=== PATIENT | female | born 1960 | race Two or more races ===

== ENCOUNTER 2020-09-06 09:12 | Outpatient (REF) | payer OTHER, SELFPAY ==
[2020-09-06 10:07] LABS: MANUAL DIFF FLAG NO
[2020-09-06 10:15] LABS: Basophils Absolute Auto 0.1 X10*3/uL (0.0-0.2); Basophils Percent Auto 1.1 % (0-2); Eosinophils Absolute Auto 0.1 X10*3/uL (0.0-0.4); Eosinophils Percent Auto 1.3 % (0-4); Hematocrit 43.2 % (37-47); Hemoglobin 14.1 g/dl (12.0-16.0); Imm Gran Abs Auto 0.01 X10*3/uL (0.00-0.03); Imm Gran Pct Auto 0.2 % (0.0-0.4); Lymphocytes Percent Auto 31.6 % (20-40); Mean Corpuscular HGB Conc 32.6 g/dl (31.0-35.0); Mean Corpuscular Hemoglobin 29.3 pg (27.0-33.0); Mean Corpuscular Volume 89.6 fL (80-98); Mean Platelet Volume 8.8 fL (9.4-12.3); Monocytes Absolute Auto 0.4 X10*3/uL (0.1-1.2); Monocytes Percent Auto 5.8 % (2-11); Neutrophils Absolute Auto 3.7 X10*3/uL (2.0-8.3); Platelet Count 325 X10*3/uL (160-400); Red Blood Count 4.82 X10*6/uL (4.20-5.50); Red Cell Distribution Width 13.2 % (11.0-16.0); White Blood Count 6.2 X10*3/uL (4.8-10.8)
[2020-09-06 10:21] LABS: Estimated Average Glucose 120 mg/dL; Hemoglobin A1C 145.3548 umol/L; Hemoglobin A1c % 5.8 %
[2020-09-06 10:57] LABS: Alanine Aminotransferase 18 U/L (0-31); Albumin Level 4.3 g/dL (3.5-5.0); Alkaline Phosphatase 65 U/L (39-117); Anion Gap 12 (12-20); Aspartate Amino Transferase 18 U/L (5-31); Bilirubin Total 0.3 mg/dL (0.0-1.0); Blood Urea Nitrogen 14 mg/dL (9-16); Calcium 8.7 mg/dL (8.4-10.2); Carbon Dioxide 30 mmol/L (22-29); Chloride 102 mmol/L (96-108); Cholesterol 332 mg/dL; Estimated Glomerular Filt Rate > 60; Glucose Fasting 82 mg/dL (60-99); HDL Cholesterol 51 mg/dL; LDL Cholesterol Calculated 222 mg/dl; Potassium 4.4 mmol/l (3.3-5.1); Sodium 140 mmol/L (135-145); Total Protein 7.5 g/dL (6.5-8.0); Triglycerides 298 mg/dL
[2020-09-06 11:03] LABS: TSH reflex Free T4 1.28 mIU/mL (0.32-4.0)
[2020-09-06 17:10] LABS: Rheumatoid Factor < 15.0 IU/mL (<15.0)
== END 2020-09-06 09:13 | disposition home or self-care (01) ==
LOC: HO.LAB 09:12
PROVIDERS: PCP Physician Assistant; Visit Provider Physician Assistant
DX: E66.09 Other obesity due to excess calories (principal); Z68.31 Body mass index [BMI] 31.0-31.9, adult; E78.2 Mixed hyperlipidemia; Z13.1 Encounter for screening for diabetes mellitus; M25.50 Pain in unspecified joint; E03.9 Hypothyroidism, unspecified
CPT/HCPCS: 36415; 80053; 80061; 83036; 84443; 85025; 86431

== ENCOUNTER 2021-11-09 10:08 | Outpatient (REF) | payer OTHER, SELFPAY ==
[2021-11-09 11:28] LABS: Estimated Average Glucose 126 mg/dL
[2021-11-09 11:34] LABS: Alanine Aminotransferase 16 U/L (0-31); Albumin Level 4.3 g/dL (3.5-5.0); Alkaline Phosphatase 86 U/L (39-117); Anion Gap 12 (12-20); Aspartate Amino Transferase 16 U/L (5-31); Bilirubin Total 0.4 mg/dL (0.0-1.0); Blood Urea Nitrogen 13 mg/dL (9-16); Calcium 9.8 mg/dL (8.4-10.2); Carbon Dioxide 30 mmol/L (22-29); Chloride 105 mmol/L (96-108); Cholesterol 243 mg/dL; Estimated Glomerular Filt Rate > 60; Glucose Fasting 105 mg/dL (60-99); HDL Cholesterol 48 mg/dL; LDL Cholesterol Calculated 146 mg/dl; Potassium 4.1 mmol/L (3.3-5.1); Rheumatoid Factor < 15.0 IU/mL (<15.0); Sodium 143 mmol/L (135-145); Total Protein 7.6 g/dL (6.5-8.0); Triglycerides 247 mg/dL
[2021-11-09 11:57] LABS: TSH reflex Free T4 1.33 uIU/mL (0.32-4.0)
[2021-11-09 12:24] LABS: Erythrocyte Sedimentation Rate 6 MM/HR (0-20)
[2021-11-10 12:41] LABS: Anti Nuclear Antibody Screen NEGATIVE (NEGATIVE)
[2021-11-11 15:42] LABS: Cyclic Citrullinated Peptide <16 UNITS
== END 2021-11-09 10:09 | disposition home or self-care (01) ==
LOC: HO.LAB 10:08
PROVIDERS: Visit Provider Physician Assistant
DX: M25.50 Pain in unspecified joint (principal); E03.9 Hypothyroidism, unspecified; E78.2 Mixed hyperlipidemia; M79.10 Myalgia, unspecified site; Z13.1 Encounter for screening for diabetes mellitus
CPT/HCPCS: 36415; 80053; 80061; 82550; 83036; 84443; 85652; 86038; 86039; 86200; 86431

== ENCOUNTER 2021-11-25 09:13 | Outpatient (REF) | payer OTHER, SELFPAY ==
--- NOTE | ~2021-11-25 | XR_ITS ---
EXAMINATION: XR BILATERAL SHOULDER XR CERVICAL SPINE CLINICAL INFORMATION: Pain in bilateral shoulder and neck. COMPARISON: None TECHNIQUE: 4 views each shoulder. Cervical spine 3 views. FINDINGS: Left Shoulder: There is no visible acute fracture, dislocation. The glenohumeral alignment and the AC joint appears normal. The soft tissues are normal. Right Shoulder: The glenohumeral joint space and AC joint is space is normal. No visible acute fracture, dislocation or lytic process seen. The soft tissues are normal. Cervical Spine: There is normal cervical lordosis. The vertebral heights, alignment and disc heights are normal. No visible acute fracture, dislocation or subluxation seen. There are surgical alberto in the lower neck from previous intervention. No gross bony abnormality. The prevertebral soft tissues are maintained normal. XR/XR shoulder RT min 2V IMPRESSION: Unremarkable bilateral shoulder exam. No fracture, dislocation or subluxation cervical spine. Surgical alberto in the lower anterior neck from previous intervention.
--- NOTE | ~2021-11-25 | XR_ITS ---
EXAMINATION: XR BILATERAL SHOULDER XR CERVICAL SPINE CLINICAL INFORMATION: Pain in bilateral shoulder and neck. COMPARISON: None TECHNIQUE: 4 views each shoulder. Cervical spine 3 views. FINDINGS: Left Shoulder: There is no visible acute fracture, dislocation. The glenohumeral alignment and the AC joint appears normal. The soft tissues are normal. Right Shoulder: The glenohumeral joint space and AC joint is space is normal. No visible acute fracture, dislocation or lytic process seen. The soft tissues are normal. Cervical Spine: There is normal cervical lordosis. The vertebral heights, alignment and disc heights are normal. No visible acute fracture, dislocation or subluxation seen. There are surgical alberto in the lower neck from previous intervention. No gross bony abnormality. The prevertebral soft tissues are maintained normal. XR/XR cervical spine 3V IMPRESSION: Unremarkable bilateral shoulder exam. No fracture, dislocation or subluxation cervical spine. Surgical alberto in the lower anterior neck from previous intervention.
--- NOTE | ~2021-11-25 | XR_ITS ---
EXAMINATION: XR BILATERAL SHOULDER XR CERVICAL SPINE CLINICAL INFORMATION: Pain in bilateral shoulder and neck. COMPARISON: None TECHNIQUE: 4 views each shoulder. Cervical spine 3 views. FINDINGS: Left Shoulder: There is no visible acute fracture, dislocation. The glenohumeral alignment and the AC joint appears normal. The soft tissues are normal. Right Shoulder: The glenohumeral joint space and AC joint is space is normal. No visible acute fracture, dislocation or lytic process seen. The soft tissues are normal. Cervical Spine: There is normal cervical lordosis. The vertebral heights, alignment and disc heights are normal. No visible acute fracture, dislocation or subluxation seen. There are surgical alberto in the lower neck from previous intervention. No gross bony abnormality. The prevertebral soft tissues are maintained normal. XR/XR shoulder LT min 2V IMPRESSION: Unremarkable bilateral shoulder exam. No fracture, dislocation or subluxation cervical spine. Surgical alberto in the lower anterior neck from previous intervention.
== END 2021-11-25 09:14 | disposition home or self-care (01) ==
LOC: HO.XRAY 09:13
PROVIDERS: PCP Physician Assistant; Visit Provider Physician Assistant
DX: G89.29 Other chronic pain (principal); M25.512 Pain in left shoulder; M25.511 Pain in right shoulder; M54.2 Cervicalgia; M77.8 Other enthesopathies, not elsewhere classified
CPT/HCPCS: 72040; 73030

== ENCOUNTER 2022-01-10 10:00 | Outpatient (RCR) | payer OTHER, SELFPAY ==
--- NOTE | 2022-01-01 12:25 | MHC.PT.EP ---
[facility] [place] [facility] [place] [facility] [place] [facility] [address] Brigette Pulliam [address] [phone] F: [phone] F: [phone] F: [phone] F: [phone] Physical Therapy Plan of Care Date of Evaluation: Date of Surgery: N/A Diagnosis: M75.21: bicipital tendinitis, right shoulder Assessment: pt presents w/ signs and symptoms consistent w/ distal biceps tendinitis. pt may benefit from referral to orthopedic doctor to determine if she is a candidate for other pain management options including injections. pt presents to physical therapy with pain, decreased range of motion, decreased strength, impaired functional mobility, impaired postural awareness, and gait deviations. pt is a good candidate for skilled PT due to age, potential remediation of impairments, typical disease/condition progression and prognosis, comorbidities, and motivation. pt would benefit from tailored strengthening and stretching exercise program, functional training, gait training, postural re-training, neuromuscular re-education, modalities as needed for pain, equipment safety demonstration. Frequency and Duration: The patient will be seen 2x/wk for 6 wks Short Term Goals: pt will be I w/ HEP to promote self-management of condition. pt will improve shoulder flexion AROM by 10 degrees to promote ease in reaching for objects in higher cabinets for self-care activities. Snf Goals: pt will report a statistically significant improvement in self-reported outcome measure, SPADI, to promote return to PLOF. pt will tolerate carrying 5# object in affected arm x20' to promote return to carrying groceries. Treatment Plan: Modalities to reduce pain, spasms and effusion. Manual therapy to restore motion and function. Therapeutic exercise to improve strength and flexibility. Neuromuscular re-education for posture and balance. Therapeutic activities to return to functional activities of daily living. Electronically signed by: Kaitlynn Castellanos PT, DPT Please sign and return to therapist. Thank you for your referral.
--- NOTE | 2022-01-22 15:35 | MHC.PT.DC ---
[facility] [place] [facility] [place] [facility] [place] [facility] [address] Brigette Pulliam [address] [phone] F: [phone] F: [phone] F: [phone] F: [phone] Physical Therapy Discharge Report Diagnosis: M75.21: bicipital tendinitis, right shoulder Date of Surgery: N/A Date of Evaluation: 01/01/22 Date of Discharge: 01/22/22 Treatments to Date: 3 Cancellations to Date: 0 No Shows to Date: 0 Discharge Status: Patient Elected to Stop Discharge Summary: The patient stated she does not want to continue with PT at this time because she feels she is in too much pain. Gentle AAROM and shoulder/elbow stretches were performed with poor tolerance and high self-reported pain intensities. She stated she has her first appointment with the orthopedic on February 04. The patient stated she wants to hold PT at this time until she sees the orthopedic. She is hoping to get an MRI. She is discharged from this physical therapy plan of care per her request until she sees orthopedic to determine if further PT intervention should be trialed or other pain management options. Electronically signed by: Kaitlynn Castellanos PT, DPT Please sign and return to therapist. Thank you for your referral.
== END 2022-01-22 15:35 | disposition home or self-care (01) ==
LOC: HO.PT 10:00
PROVIDERS: Visit Provider Physician Assistant
DX: M75.21 Bicipital tendinitis, right shoulder (principal)
CPT/HCPCS: 97110; 97162

== ENCOUNTER 2022-01-29 10:19 | Outpatient (REF) | payer OTHER, SELFPAY ==
--- NOTE | ~2022-01-29 | MR_ITS ---
EXAMINATION: MR SHOULDER WITHOUT CONTRAST, RIGHT CLINICAL INFORMATION: Right shoulder pain. COMPARISON: Radiographs 11/25/2021. TECHNIQUE: MRI of the shoulder without contrast was performed on a high-field scanner. FINDINGS: ROTATOR CUFF: There is a supraspinatus tendon insertional tear measuring approximately 8 x 6 mm which is predominantly interstitial although appears to communicate with the bursal surface. The rotator cuff is otherwise intact. No muscle atrophy or fatty infiltration. BICEPS: Normal. CORACOACROMIAL ARCH: The undersurface of the acromion is laterally downsloping with no subacromial spur. The acromioclavicular joint is normal. LABRUM/CAPSULE: Normal. GLENOHUMERAL JOINT/MARROW: Small degenerative cyst of the anterior superior humeral head. No joint effusion. MR/MR shoulder RT wo con IMPRESSION: Supraspinatus tendon insertional tear measuring approximately 8 x 6 mm which is predominantly interstitial although likely has a bursal surface component. Laterally downsloping acromion.
== END 2022-01-29 10:20 | disposition home or self-care (01) ==
LOC: HO.MRI 10:19
PROVIDERS: Visit Provider Physician Assistant
DX: M77.8 Other enthesopathies, not elsewhere classified (principal); M75.100 Unspecified rotator cuff tear or rupture of unspecified shoulder, not specified as traumatic; M12.819 Other specific arthropathies, not elsewhere classified, unspecified shoulder
CPT/HCPCS: 73221

== ENCOUNTER → 2022-02-04 09:44 | Outpatient (BNVA) | payer OTHER, SELFPAY | PROVIDERS: PCP Physician Assistant; Visit Provider Physician Assistant | DX: M75.101 Unspecified rotator cuff tear or rupture of right shoulder, not specified as traumatic (principal) | CPT/HCPCS: 99202 ==

== ENCOUNTER → 2022-02-06 09:48 | Outpatient (BNVA) | payer OTHER, SELFPAY | PROVIDERS: PCP Physician Assistant; Visit Provider Orthopaedic Surgery | DX: M75.101 Unspecified rotator cuff tear or rupture of right shoulder, not specified as traumatic (principal); I10 Essential (primary) hypertension; E89.0 Postprocedural hypothyroidism; F17.210 Nicotine dependence, cigarettes, uncomplicated; Z88.6 Allergy status to analgesic agent; Z88.1 Allergy status to other antibiotic agents; Z88.0 Allergy status to penicillin | CPT/HCPCS: 20610; 99212; J1040; J1100 ==

== ENCOUNTER 2022-03-14 11:29 | Emergency (ER) | payer MEDICAID, SELFPAY ==
--- NOTE | ~2022-03-14 | CT_ITS ---
EXAMINATION: CT ABDOMEN AND PELVIS WITHOUT CONTRAST CLINICAL INFORMATION: Diarrhea. Left-sided abdominal pain. COMPARISON: None TECHNIQUE: Multidetector volumetric imaging was performed from the superior aspect of the liver through the pubic symphysis. Sagittal and coronal reformatted images were obtained on the technologist's workstation. This CT examination was performed using dose optimization techniques as appropriate, variously including the following: *Automated exposure control *Adjustment of mA and/or kV according to patient size (this includes techniques or standardized protocols for targeted exams where dose is matched to indication/reason for exam; i.e. extremities or head) *Use of iterative reconstruction technique DLP: 686 mGy-cm FINDINGS: LUNG BASES: The visualized lung bases are unremarkable. LIVER, GALLBLADDER, AND BILIARY TREE: The liver is normal in size, shape, and attenuation. No focal hepatic lesion or biliary ductal dilatation is present. The gallbladder is unremarkable with no evidence of radiopaque gallstones, gallbladder wall thickening, or obvious pericholecystic inflammatory changes. PANCREAS: Unremarkable. SPLEEN: Unremarkable. ADRENAL GLANDS: Unremarkable. KIDNEYS AND URETERS: There are small calcifications in the upper pole of the right kidney, question representing vascular calcifications as opposed to stones. BLADDER: Unremarkable. GASTROINTESTINAL TRACT: There is colitis involving the cecum, right colon and hepatic flexure with bowel wall thickening and edema and stranding of the surrounding fat. There is a relatively normal-appearing transverse colon. There is evidence of mild colitis with bowel wall thickening of the left colon. There is more severe appearing colitis of the distal left colon and sigmoid colon with wall thickening and stranding of the surrounding fat. No evidence of obstruction, perforation or abscess is seen. There are areas of fatty infiltration of the wall of the bowel, predominantly involving the right colon and lower sigmoid colon and rectum. This is a nonspecific finding but can be seen with old colitis. The appendix is slightly dilated measuring 9 mm. There is a stranding of the periappendiceal fat. This appears less pronounced than the inflammatory changes of the cecum and right colon and may be secondary to the colitis. ABDOMINAL WALL: There are extensive postsurgical changes to the abdominal wall. No hernia seen. LYMPH NODES: Normal. VASCULAR: Unremarkable. PELVIC VISCERA: There may be a small left ovarian cyst measuring 1.6 cm. This appears increased from July 2012 exam and follow-up pelvic ultrasound should be considered. The uterus and adnexa are otherwise unremarkable. OSSEOUS STRUCTURES: There is degenerative disc disease and L4-L5. CT/CT abdomen pelvis wo con IMPRESSION: Severe colitis with intervening normal or less involved segments of colon. Inflammatory colitis should be excluded. The appendix is slightly dilated and there is stranding of the periappendiceal fat. This may be secondary to colitis. Question 1.6 cm left ovarian cyst. Follow-up elective pelvic ultrasound recommended. Small right renal calcifications, question representing vascular calcifications as opposed to small stones. Fleischner guidelines were followed.
[2022-03-14 11:42] VITALS: BP 122/71; PULSE 100; RESP 19; TEMP 36.6; O2SAT 98; BMI 36.9
[2022-03-14 11:59] LABS: MANUAL DIFF FLAG NO
[2022-03-14 12:04] LABS: Basophils Absolute Auto 0.1 X10*3/uL (0.0-0.2); Basophils Percent Auto 0.6 % (0-2); Eosinophils Absolute Auto 0.1 X10*3/uL (0.0-0.4); Eosinophils Percent Auto 1.3 % (0-4); Hematocrit 42.3 % (37.0-47.0); Hemoglobin 14.4 g/dl (12.0-16.0); Imm Gran Abs Auto 0.03 X10*3/uL (0.00-0.03); Imm Gran Pct Auto 0.4 % (0.0-0.4); Lymphocytes Percent Auto 25.1 % (20-40); Mean Corpuscular Hemoglobin 29.4 pg (27.0-33.0); Mean Corpuscular Volume 86.3 fL (80.0-98.0); Mean Platelet Volume 8.8 fL (9.4-12.3); Monocytes Absolute Auto 0.4 X10*3/uL (0.1-1.2); Monocytes Percent Auto 5.1 % (2-11); Neutrophils Absolute Auto 5.3 x10*3/uL (2.0-8.3); Neutrophils Percent Auto 67.5 % (45-73); Platelet Count 364 X10*3/uL (160-400); Red Cell Distribution Width 12.7 % (11.0-16.0); White Blood Count 7.9 X10*3/uL (4.8-10.8)
[2022-03-14 12:18] LABS: Alanine Aminotransferase 21 U/L (0-31); Albumin Level 4.1 g/dL (3.5-5.0); Alkaline Phosphatase 74 U/L (39-117); Anion Gap 15 (12-20); Aspartate Amino Transferase 17 U/L (5-31); Bilirubin Direct 0.2 mg/dL (0.0-0.5); Bilirubin Total 0.4 mg/dL (0.0-1.0); Blood Urea Nitrogen 10 mg/dL (9-16); Calcium 9.3 mg/dL (8.4-10.2); Carbon Dioxide 25 mmol/L (22-29); Chloride 105 mmol/L (96-108); Creatinine Clr Calc Pharmacy 70.9; Estimated Glomerular Filt Rate > 60; Glucose Random 118 mg/dL (60-115); Lipase 15 U/L (8-78); Potassium 3.2 mmol/L (3.3-5.1); Sodium 142 mmol/L (135-145); Total Protein 7.2 g/dL (6.5-8.0)
--- NOTE | 2022-03-14 14:31 | ED_ITS ---
HPI - Nausea/Vomiting/Diarrhea General Chief complaint: Nausea/Vomiting/Diarrhea Stated complaint: N/V/D Time Seen by Provider: 03/14/22 14:31 Source: patient Mode of arrival: ambulatory Limitations: no limitations History of Present Illness HPI Narrative: started after eating [place] food, no antibiotic use in 4+ weeks MD elicited complaint: nausea, vomiting, diarrhea and abdominal pain Onset (ago): day(s) (4) Description of diarrhea: watery Location of pain: diffuse Radiation: diffuse Pain consistency: intermittent Severity: mild Quality: cramping Exacerbating factors: eating Relieving factors: none Context: possible food poisoning (started after eating [place] food) Associated symptoms: loss of appetite, malaise, nausea/vomiting and other (watery stool every time she eats, has tried eleanor seltzer) Treatment prior to arrival: other (eleanor seltzer) Related Data Home Medications Medication Instructions Recorded Confirmed lorazepam 0.5 mg tablet 0.5 mg PO BID PRN 09/06/20 11/25/21 trazodone 50 mg tablet 50 mg PO BEDTIME PRN 09/06/20 11/25/21 Previous Rx's Medication Instructions Recorded atorvastatin 40 mg tablet 40 mg PO DAILY #30 tab 11/11/21 acetaminophen 300 mg-codeine 30 mg 1 tab PO Q8H PRN 4 Days #12 tab 11/25/21 tablet cyclobenzaprine 10 mg tablet 10 mg PO TID 15 Days #45 tab 11/28/21 levothyroxine 137 mcg capsule 137 mcg PO DAILY 30 Days #30 cap 02/04/22 naproxen 375 mg tablet 375 mg PO BID PRN 30 Days #60 tab 02/14/22 Allergies Allergy/AdvReac Type Severity Reaction Status Date / Time cephalexin Allergy Mild Unknown Verified 02/06/22 09:57 SOME ANTIBIOTICS Allergy Unknown ITCH,THROAT Uncoded 11/25/21 08:34 SWELLING imitrex Allergy Unknown Unknown Uncoded 11/25/21 08:34 PCN Allergy Unknown rash, oral Uncoded 11/25/21 08:34 swelling Review of Systems Review of Systems: Constitutional : No Weight loss, No Fever, No Chills ENT/Mouth : No sore throat, No Rhinorrhea Eyes: No Swelling, No Redness Cardiovascular : No Chest Pain, No SOB, NoEdema Respiratory : No Cough, No Sputum, No Wheezing Gastrointestinal : Positive Nausea, Positive Vomiting, positive Diarrhea, positive abdominal Pain, No Hematochezia, No Melena Genitourinary : No Dysuria, No Urinary Frequency, No Hematuria, No Urgency Musculoskeletal : No joint pain, No Myalgias, No Joint Swelling Skin : No Skin Lesions, No rash Neuro : No Weakness, No Numbness, No Dizziness, No Headache Psych : No Anxiety/Panic, No Depression Heme/Lymph: No Bruising, No Lymphadenopathy Endocrine : No Polyuria, No Polydipsia All other systems reviewed and are negative. [facility] Past Medical History Attestation statement: The following information was validated with the patient. Medical History (Updated 03/14/22 @ 15:07 by Dianne Villalba DO) HLD (hyperlipidemia) HTN (hypertension) Hypothyroidism Hypothyroidism Surgical History History of plastic surgery History of thyroidectomy Family History Family History Father Heart problem Mother Stroke Diabetes Brother Acute CVA (cerebrovascular accident) Social History Social History Alcohol intake: never Patient Tobacco Use Status: Current everyday Tobacco user Cigarettes Per Day: 3 e-Cigarette/Vaping Use: Never Used Second Hand Smoke Exposure: No Advance Directives: No Advance Directives Information Provided: No Current occupational status: employed 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 Oriented X3. No acute distress. Eyes: Pupils equal, round and reactive to light. ENT: Pharynx normal. Neck: Normal inspection. Neck supple. CVS: Normal heart rate and rhythm. Pulses normal. Respiratory: No respiratory distress. Breath sounds normal. Abdomen: Soft and mild diffuse ttp no rebound or guarding Skin: Skin warm and dry. Normal skin color. Normal skin turgor. Extremities: No lower extremity edema. No calf ttp Neuro: Oriented X 3. No motor deficit. No sensory deficit. Course Course Course Narrative: signed out to TIMMY Saldivar MDM - Nausea/Vomiting/Diarrhea MDM Narrative Medical decision making narrative: 61 yo female with hx of fibromyalgia and hypothyroidism presents with 4 days of watery stools after eating [place] Food - no recent antibiotic use no prior hx of colitis. At this time will replete potassium, IVF, labs, CT scan for colitis. Has not had fevers or bloody stools suspect possible foot toxicity - her biggest complaint at this time is residual diarrhea after eating. Dispo per results and findings. Lab Data Result diagrams: 03/14/22 11:55 03/14/22 11:56 Labs: Lab Results 03/14/22 03/14/22 Range/Units 11:55 11:56 WBC 7.9 (4.8-10.8) X10*3/uL RBC 4.90 (4.20-5.50) X10*6/uL Hgb 14.4 (12.0-16.0) g/dl Hct 42.3 (37.0-47.0) % MCV 86.3 (80.0-98.0) fL MCH 29.4 (27.0-33.0) pg MCHC 34.0 (31.0-35.0) g/dl RDW 12.7 (11.0-16.0) % Plt Count 364 (160-400) X10*3/uL MPV 8.8 L (9.4-12.3) fL Immature Gran % (Auto) 0.4 (0.0-0.4) % Neut % (Auto) 67.5 (45-73) % Lymph % (Auto) 25.1 (20-40) % Grimes % (Auto) 5.1 (2-11) % Eos % (Auto) 1.3 (0-4) % Baso % (Auto) 0.6 (0-2) % Lymph # (Auto) 2.0 (1.2-4.9) X10*3/uL Grimes # (Auto) 0.4 (0.1-1.2) X10*3/uL Eos # (Auto) 0.1 (0.0-0.4) X10*3/uL Baso # (Auto) 0.1 (0.0-0.2) X10*3/uL Abs Immat Gran (auto) 0.03 (0.00-0.03) X10*3/uL Absolute Neuts (auto) 5.3 (2.0-8.3) x10*3/uL Absolute Nucleated RBC 0.000 (0.0-0.012) X10*3/uL Nucleated RBC % (auto) 0.0 (0.0-0.2) /100WBC Sodium 142 (135-145) mmol/L Potassium 3.2 L D (3.3-5.1) mmol/L Chloride 105 (96-108) mmol/L Carbon Dioxide 25 (22-29) mmol/L Anion Gap 15 (12-20) BUN 10 (9-16) mg/dL Creatinine 0.80 (0.5-1.4) mg/dL Estim Creat Clear Calc 70.9 Estimated GFR > 60 Random Glucose 118 H (60-115) mg/dL Calcium 9.3 (8.4-10.2) mg/dL Total Bilirubin 0.4 (0.0-1.0) mg/dL Direct Bilirubin 0.2 (0.0-0.5) mg/dL AST 17 (5-31) U/L ALT 21 (0-31) U/L Alkaline Phosphatase 74 (39-117) U/L Total Protein 7.2 (6.5-8.0) g/dL Albumin 4.1 (3.5-5.0) g/dL Lipase 15 (8-78) U/L Discharge Plan Discharge Clinical Impression: Diarrhea Patient Disposition: Still a Patient Instructions: Acute Diarrhea (ED), Nutrition Tips for Relief of Diarrhea (ED) Prescriptions: No Action atorvastatin 40 mg tablet 40 mg PO DAILY Qty: 30 3RF cyclobenzaprine 10 mg tablet 10 mg PO TID 15 Days Qty: 45 0RF levothyroxine 137 mcg capsule 137 mcg PO DAILY 30 Days Qty: 30 0RF naproxen 375 mg tablet 375 mg PO BID PRN (Reason: pain) 30 Days Qty: 60 0RF lorazepam 0.5 mg tablet 0.5 mg PO BID PRN0RF trazodone 50 mg tablet 50 mg PO BEDTIME PRN (Reason: insomnia) 0RF acetaminophen-codeine 300-30 mg tablet 1 tab PO Q8H PRN (Reason: pain) 4 Days Qty: 12 0RF
[2022-03-14] MEDS: 0.9 % Sodium Chloride 1,000 ML 999 ML IVCONT (15:16)
[2022-03-14] MEDS: ondansetron HCL 4 MG/2 ML VIAL IVPUSH (15:16)
[2022-03-14] MEDS: Ketorolac Tromethamine 15 MG/ML VIAL 30 MG IVPUSH (15:16)
[2022-03-14 15:27] VITALS: BP 125/62; PULSE 60; RESP 16; TEMP 36.9; O2SAT 98
[2022-03-14] MEDS: Potassium Chloride Packet 20 MEQ PACKET 40 MEQ PO (17:40)
== END 2022-03-14 17:45 | disposition home or self-care (01) ==
PROVIDERS: Emergency Provider Emergency Medicine; PCP Physician Assistant
DX: K52.9 Noninfective gastroenteritis and colitis, unspecified (principal); I10 Essential (primary) hypertension
CPT/HCPCS: 36415; 74176; 80048; 80076; 83690; 85025; 96361; 96374; 96375; 99283; 99284; J1885; J2405

== ENCOUNTER 2022-04-03 06:18 | Emergency (ER) | payer OTHER, SELFPAY ==
--- NOTE | ~2022-04-03 | CT_ITS ---
EXAMINATION: CT ABDOMEN AND PELVIS WITHOUT CONTRAST CLINICAL INFORMATION: Left lower quadrant pain. Diarrhea. COMPARISON: 03/14/2022 TECHNIQUE: Multidetector volumetric imaging was performed from the superior aspect of the liver through the pubic symphysis. Sagittal and coronal reformatted images were obtained on the technologist's workstation. This CT examination was performed using dose optimization techniques as appropriate, variously including the following: *Automated exposure control *Adjustment of mA and/or kV according to patient size (this includes techniques or standardized protocols for targeted exams where dose is matched to indication/reason for exam; i.e. extremities or head) *Use of iterative reconstruction technique DLP: 721 mGy-cm FINDINGS: LUNG BASES: The visualized lung bases are unremarkable. LIVER, GALLBLADDER, AND BILIARY TREE: The liver is normal in size, shape, and attenuation. No focal hepatic lesion or biliary ductal dilatation is present. The gallbladder is unremarkable with no evidence of radiopaque gallstones, gallbladder wall thickening, or obvious pericholecystic inflammatory changes. PANCREAS: Unremarkable. SPLEEN: Unremarkable. ADRENAL GLANDS: Unremarkable. KIDNEYS AND URETERS: The kidneys are normal in size, shape, and attenuation. No hydronephrosis, hydroureter, or calculi seen. No perinephric stranding. Small calcifications are seen at the superior aspect of the right hilar region, unchanged from prior and favoring vascular calcifications. BLADDER: Unremarkable. GASTROINTESTINAL TRACT: Small hiatal hernia. The stomach is otherwise unremarkable. Normal caliber small bowel. Normal appendix. Fatty infiltration of the wall of the cecum. Minimal colonic diverticulosis without diverticulitis. ABDOMINAL WALL: No significant hernia is appreciated. LYMPH NODES: Normal. VASCULAR: Normal caliber aorta with mild atherosclerotic calcifications. PELVIC VISCERA: The uterus and adnexa are unremarkable. OSSEOUS STRUCTURES: No acute or suspicious osseous abnormality. No suspicious findings. Mild degenerative change at L5-S1. CT/CT abdomen pelvis wo con IMPRESSION: No acute findings in the abdomen or pelvis. No inflammatory changes. Minimal colonic diverticulosis without diverticulitis. Fleischner guidelines were followed.
[2022-04-03 06:23] VITALS: BP 153/75; PULSE 82; RESP 16; TEMP 36.7; O2SAT 97; BMI 33.6
[2022-04-03 06:40] LABS: MANUAL DIFF FLAG NO
[2022-04-03 06:43] LABS: Basophils Absolute Auto 0.1 X10*3/uL (0.0-0.2); Basophils Percent Auto 1.1 % (0-2); Eosinophils Absolute Auto 0.2 X10*3/uL (0.0-0.4); Eosinophils Percent Auto 2.6 % (0-4); Hematocrit 41.8 % (37.0-47.0); Hemoglobin 13.9 g/dl (12.0-16.0); Imm Gran Abs Auto 0.02 X10*3/uL (0.00-0.03); Imm Gran Pct Auto 0.3 % (0.0-0.4); Lymphocytes Absolute Auto 1.9 X10*3/uL (1.2-4.9); Lymphocytes Percent Auto 25.4 % (20-40); Mean Corpuscular HGB Conc 33.3 g/dl (31.0-35.0); Mean Corpuscular Hemoglobin 29.7 pg (27.0-33.0); Mean Corpuscular Volume 89.3 fL (80.0-98.0); Monocytes Absolute Auto 0.4 X10*3/uL (0.1-1.2); Monocytes Percent Auto 5.6 % (2-11); Neutrophils Absolute Auto 4.7 x10*3/uL (2.0-8.3); Platelet Count 338 X10*3/uL (160-400); Red Blood Count 4.68 X10*6/uL (4.20-5.50); Red Cell Distribution Width 13.1 % (11.0-16.0); White Blood Count 7.3 X10*3/uL (4.8-10.8)
--- NOTE | 2022-04-03 07:07 | ED.ABDPAIN ---
HPI - Abdominal Pain General Chief Complaint: Abdominal Pain Stated Complaint: Abd pain Time Seen by Provider: 04/03/22 07:06 Source: patient and old records reviewed Mode of arrival: ambulatory Limitations: no limitations History of Present Illness HPI narrative: 03/14 MD elicited complaint: abdominal pain Pertinent past history: other (dx with colitis on 03/14 started on cipro and flagyl couldn't tolerate flagyl due to headaches/nausea) Onset (ago): day(s) (3) Pain Consistency: intermittent Location: LLQ Severity: mild Quality: cramping Radiation: none Migration to: no migration Exacerbating factors: eating Relieving factors: nothing Context: history of similar episodes Associated symptoms: diarrhea (loose yellow stools every time she eats) Related Data Home Medications Medication Instructions Recorded Confirmed lorazepam 0.5 mg tablet 0.5 mg PO BID PRN 09/06/20 11/25/21 trazodone 50 mg tablet 50 mg PO BEDTIME PRN 09/06/20 11/25/21 Previous Rx's Medication Instructions Recorded atorvastatin 40 mg tablet 40 mg PO DAILY #30 tab 11/11/21 acetaminophen 300 mg-codeine 30 mg 1 tab PO Q8H PRN 4 Days #12 tab 11/25/21 tablet cyclobenzaprine 10 mg tablet 10 mg PO TID 15 Days #45 tab 11/28/21 naproxen 375 mg tablet 375 mg PO BID PRN 30 Days #60 tab 02/14/22 ciprofloxacin HCl 500 mg tablet 500 mg PO BID 7 Days #14 tab 03/14/22 metronidazole 500 mg tablet 500 mg PO Q8H 7 Days #21 tab 03/14/22 levothyroxine 137 mcg tablet 137 mcg PO DAILY #30 tab 03/21/22 lactobacillus combination no.4 3 3,000 mmu cells PO DAILY #30 cap 04/03/22 billion cell capsule (Probiotic) Allergies Allergy/AdvReac Type Severity Reaction Status Date / Time cephalexin Allergy Mild Unknown Verified 02/06/22 09:57 SOME ANTIBIOTICS Allergy Unknown ITCH,THROAT Uncoded 11/25/21 08:34 SWELLING imitrex Allergy Unknown Unknown Uncoded 11/25/21 08:34 PCN Allergy Unknown rash, oral Uncoded 11/25/21 08:34 swelling Review of Systems Review of Systems Constitutional : No Weight loss, No Fever, No Chills ENT/Mouth : No sore throat, No Rhinorrhea Eyes: No Swelling, No Redness Cardiovascular : No Chest Pain, No SOB, NoEdema Respiratory : No Cough, No Sputum, No Wheezing Gastrointestinal : no Nausea, no Vomiting, positive Diarrhea, positive abdominal Pain, No Hematochezia, No Melena Genitourinary : No Dysuria, No Urinary Frequency, No Hematuria, No Urgency Musculoskeletal : No joint pain, No Myalgias, No Joint Swelling Skin : No Skin Lesions, No rash Neuro : No Weakness, No Numbness, No Dizziness, No Headache Psych : No Anxiety/Panic, No Depression Heme/Lymph: No Bruising, No Lymphadenopathy Endocrine : No Polyuria, No Polydipsia All other systems reviewed and are negative. [facility] Past Medical History Attestation statement: The following information was validated with the patient. 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 Oriented X3. No acute distress. Eyes: Pupils equal, round and reactive to light. ENT: Pharynx normal. Neck: Normal inspection. Neck supple. CVS: Normal heart rate and rhythm. Pulses normal. Respiratory: No respiratory distress. Breath sounds normal. Abdomen: Soft and minimal LLQ ttp no rebound or guarding Skin: Skin warm and dry. Normal skin color. Normal skin turgor. Extremities: No lower extremity edema. No calf ttp Neuro: Oriented X 3. No motor deficit. No sensory deficit. Course Course Course Narrative: CT scan negative will call with stool results later MDM - Abdominal Pain MDM Narrative Medical decision making narrative: 61 yo female with hx of HTN, HLD, hypothyroidism seen on 03/14 with LLQ pain and dx with colitis by CT scan started possibly after eating bengali food - completed cipro but did not finish flagyl due to side effects notes again 3 days of yellow stool and intermittent LLQ pain at this time will obtain labs, hydrate, CT scan for colitis. Stool studies ordered. Dispo per results and findings. Lab Data Result diagrams: 04/03/22 06:37 04/03/22 06:37 Labs: Lab Results 04/03/22 04/03/22 Range/Units 06:37 06:37 WBC 7.3 (4.8-10.8) X10*3/uL RBC 4.68 (4.20-5.50) X10*6/uL Hgb 13.9 (12.0-16.0) g/dl Hct 41.8 (37.0-47.0) % MCV 89.3 (80.0-98.0) fL MCH 29.7 (27.0-33.0) pg MCHC 33.3 (31.0-35.0) g/dl RDW 13.1 (11.0-16.0) % Plt Count 338 (160-400) X10*3/uL MPV 9.0 L (9.4-12.3) fL Immature Gran % (Auto) 0.3 (0.0-0.4) % Neut % (Auto) 65.0 (45-73) % Lymph % (Auto) 25.4 (20-40) % Ransom % (Auto) 5.6 (2-11) % Eos % (Auto) 2.6 (0-4) % Baso % (Auto) 1.1 (0-2) % Lymph # (Auto) 1.9 (1.2-4.9) X10*3/uL Ransom # (Auto) 0.4 (0.1-1.2) X10*3/uL Eos # (Auto) 0.2 (0.0-0.4) X10*3/uL Baso # (Auto) 0.1 (0.0-0.2) X10*3/uL Abs Immat Gran (auto) 0.02 (0.00-0.03) X10*3/uL Absolute Neuts (auto) 4.7 (2.0-8.3) x10*3/uL Absolute Nucleated RBC 0.000 (0.0-0.012) X10*3/uL Nucleated RBC % (auto) 0.0 (0.0-0.2) /100WBC Sodium 139 (135-145) mmol/L Potassium 3.7 (3.3-5.1) mmol/L Chloride 108 (96-108) mmol/L Carbon Dioxide 22 (22-29) mmol/L Anion Gap 13 (12-20) BUN 11 (9-16) mg/dL Creatinine 0.82 (0.5-1.4) mg/dL Estim Creat Clear Calc 68.4 Estimated GFR > 60 Random Glucose 120 H (60-115) mg/dL Calcium 9.1 (8.4-10.2) mg/dL Total Bilirubin 0.6 (0.0-1.0) mg/dL Direct Bilirubin 0.2 (0.0-0.5) mg/dL AST 16 (5-31) U/L ALT 21 (0-31) U/L Alkaline Phosphatase 73 (39-117) U/L Total Protein 7.1 (6.5-8.0) g/dL Albumin 4.0 (3.5-5.0) g/dL Lipase 24 (8-78) U/L Discharge Plan Discharge Clinical Impression: Diarrhea Qualifiers: Diarrhea type: unspecified type Qualified Code(s): R19.7 - Diarrhea, unspecified Patient Disposition: Home, Self-Care Instructions: Acute Diarrhea (ED) Additional Instructions: return to ED for any worsening symptoms or concerns your stool studies will take a few hours to come back I will call you with POSITIVE results call your doctor if you need GI referral otherwise call the office Prescriptions: New Probiotic 3 billion cell capsule 3,000 mmu cells PO DAILY Qty: 30 0RF Rx Instructions: administer with a meal No Action atorvastatin 40 mg tablet 40 mg PO DAILY Qty: 30 3RF cyclobenzaprine 10 mg tablet 10 mg PO TID 15 Days Qty: 45 0RF naproxen 375 mg tablet 375 mg PO BID PRN (Reason: pain) 30 Days Qty: 60 0RF levothyroxine 137 mcg tablet 137 mcg PO DAILY Qty: 30 2RF metronidazole 500 mg tablet 500 mg PO Q8H 7 Days Qty: 21 0RF ciprofloxacin HCl 500 mg tablet 500 mg PO BID 7 Days Qty: 14 0RF lorazepam 0.5 mg tablet 0.5 mg PO BID PRN0RF trazodone 50 mg tablet 50 mg PO BEDTIME PRN (Reason: insomnia) 0RF acetaminophen-codeine 300-30 mg tablet 1 tab PO Q8H PRN (Reason: pain) 4 Days Qty: 12 0RF Referrals: Poncho Griffith MD [Physician] - 1 week Interventions: ED Discharge Assessment Last Done: 04/03/22 11:01 Discharge Date/Time: 04/03/22 11:04
[2022-04-03 07:14] LABS: Alanine Aminotransferase 21 U/L (0-31); Alkaline Phosphatase 73 U/L (39-117); Anion Gap 13 (12-20); Aspartate Amino Transferase 16 U/L (5-31); Bilirubin Direct 0.2 mg/dL (0.0-0.5); Bilirubin Total 0.6 mg/dL (0.0-1.0); Blood Urea Nitrogen 11 mg/dL (9-16); Calcium 9.1 mg/dL (8.4-10.2); Carbon Dioxide 22 mmol/L (22-29); Chloride 108 mmol/L (96-108); Creatinine Clr Calc Pharmacy 68.4; Estimated Glomerular Filt Rate > 60; Glucose Random 120 mg/dL (60-115); Lipase 24 U/L (8-78); Potassium 3.7 mmol/L (3.3-5.1); Sodium 139 mmol/L (135-145); Total Protein 7.1 g/dL (6.5-8.0)
[2022-04-03 07:18] VITALS: BP 133/77; PULSE 75; RESP 18; TEMP 37.1; O2SAT 95
[2022-04-03] MEDS: 0.9 % Sodium Chloride 1,000 ML 999 ML IV (07:22)
[2022-04-03 09:43] VITALS: BP 144/87; PULSE 71; RESP 18; TEMP 36.7; O2SAT 99
[2022-04-03] MEDS: Barium Sulfate Oral (Mocha) 450 ML ORAL.SUSP 900 ML PO (10:09)
[2022-04-03 12:09] LABS: Leukocytes Stool Qualitative NEGATIVE (NEGATIVE)
[2022-04-03 12:27] LABS: CDiff Gene PCR POSITIVE (Negative)
[2022-04-03 12:32] LABS: CDiff Toxin Positive (Negative)
[2022-04-03 12:34] LABS: CDIFF Internal ctrl Dots and bkg OK (V)
== END 2022-04-03 11:04 | disposition home or self-care (01) ==
PROVIDERS: Emergency Provider Emergency Medicine; PCP Physician Assistant
DX: R19.7 Diarrhea, unspecified (principal); R10.32 Left lower quadrant pain; I10 Essential (primary) hypertension
CPT/HCPCS: 36415; 74176; 80053; 82248; 83690; 85025; 87045; 87046; 87324; 87493; 89055; 96360; 99284

== ENCOUNTER → 2022-05-08 09:55 | Outpatient (BNVA) | payer OTHER, SELFPAY | PROVIDERS: PCP Physician Assistant; Visit Provider Orthopaedic Surgery | DX: M75.101 Unspecified rotator cuff tear or rupture of right shoulder, not specified as traumatic (principal) | CPT/HCPCS: 99212 ==

== ENCOUNTER 2022-07-08 10:00 | Outpatient (RCR) | payer OTHER, SELFPAY ==
--- NOTE | 2022-08-06 13:48 | MHC.PT.DC ---
[facility] [place] Office [place] Office [place] Office [address] Brigette Pulliam [address] [phone] F: [phone] F: [phone] F: [phone] F: [phone] Physical Therapy Discharge Report Diagnosis: RIGHT RCT Date of Surgery: NA Date of Evaluation: 06/12/22 Date of Discharge: 07/17/22 Treatments to Date: 6 Cancellations to Date: 0 No Shows to Date: 0 Discharge Status: Recommend MD Follow-up Discharge Summary: Unable to participate in therapy due to reported high levels of pain and inability to perform therapeutic activities. Electronically signed by: Madison Leal PT, DPT Please sign and return to therapist. Thank you for your referral.
== END 2022-08-06 13:47 | disposition home or self-care (01) ==
LOC: HO.PT 10:00
PROVIDERS: PCP Physician Assistant; Visit Provider Orthopaedic Surgery
DX: M75.101 Unspecified rotator cuff tear or rupture of right shoulder, not specified as traumatic (principal)
CPT/HCPCS: 97110; 97161

== ENCOUNTER → 2022-08-01 10:22 | Outpatient (BNVA) | payer OTHER, SELFPAY | PROVIDERS: PCP Physician Assistant; Visit Provider Orthopaedic Surgery | DX: M75.101 Unspecified rotator cuff tear or rupture of right shoulder, not specified as traumatic (principal) | CPT/HCPCS: 99212 ==

== ENCOUNTER 2022-08-27 09:12 | Day surgery (SDC) | payer OTHER, SELFPAY ==
[2022-08-14 16:04] VITALS: BMI 35.6
--- NOTE | 2022-08-19 09:11 | HO.ANESPROP2 ---
Documented by User: Lea Milan NP 08/19/22 09:14 HPI - Anesthesia Eval Consult details Narrative: 61yo F for Right Arthroscopic Rotator Cuff Repair PMFSH Active Problems Active Problems: All Active Problems (Updated 06/24/22 @ 15:43 by Aguilar Benavides PA-C) Smoker (Acute) Obese (Acute) Polyarthralgia (Acute) Screening for diabetes mellitus (DM) (Acute) Breast cancer screening (Acute) Colon cancer screening (Acute) Annual physical exam (Acute) Myalgia (Acute) Fibromyalgia (Acute) Right foot pain (Acute) Biceps tendinitis (Acute) Right shoulder tendinitis (Acute) Cervical spine pain (Acute) Left shoulder pain (Acute) Rotator cuff tear arthropathy (Acute) Rotator cuff tear, right (Acute) Skin rash (Acute) Hypothyroidism (Acute) Past Medical History Medical History HLD (hyperlipidemia) HTN (hypertension) Hypothyroidism Hypothyroidism Family History Family History Father Heart problem Mother Stroke Diabetes Brother Acute CVA (cerebrovascular accident) Surgical History Surgical History (Updated 08/14/22 @ 16:03 by Caroline Todd RN) History of plastic surgery History of thyroidectomy Hx of colonoscopy Social History Social History Are you a primary restorative care technician to a significant other at home: No Do you presently have visiting nurse or other home services: No Alcohol intake: never Patient Tobacco Use Status: Current everyday Tobacco user Tobacco use type: Cigarette Cigarettes Per Day: 15 e-Cigarette/Vaping Use: Never Used Second Hand Smoke Exposure: No Have you been hit, kicked, punched, or otherwise hurt by someone within the past year? 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 Allergies Allergy/AdvReac Type Severity Reaction Status Date / Time cephalexin Allergy Mild Unknown Verified 05/08/22 10:15 SOME ANTIBIOTICS Allergy Unknown ITCH,THROAT Uncoded 05/08/22 10:15 SWELLING imitrex Allergy Unknown Unknown Uncoded 05/08/22 10:15 PCN Allergy Unknown rash, oral Uncoded 05/08/22 10:15 swelling Home Medications Medication Instructions Recorded Confirmed Last Taken Type clonazepam 0.5 mg tablet 1 tab PO DAILY 08/27/22 08/27/22 08/26/22 History Exam Exam Date and Time: August 19, 2022910 Height,Weight and Vital Signs: Height 5 ft 1 in Weight 85.729 kg Pertinent Lab Results Pertinent Lab Results: Laboratory Tests 04/03/22 04/03/22 06:37 06:37 WBC 7.3 Hgb 13.9 Hct 41.8 Plt Count 338 Sodium 139 Potassium 3.7 Chloride 108 Carbon Dioxide 22 BUN 11 Creatinine 0.82 Assessment and Plan Assessment Anesthesia Assessment: Chart Reviewed Documented by User: Lam Nash MD 08/27/22 15:29 [facility] Past Medical History Medical History HLD (hyperlipidemia) HTN (hypertension) Hypothyroidism Hypothyroidism Functional capacity: independent ambulation Family History Family History Father Heart problem Mother Stroke Diabetes Brother Acute CVA (cerebrovascular accident) Family history of problems with anesthesia: No Surgical History Surgical History (Updated 08/14/22 @ 16:03 by Caroline Todd RN) History of plastic surgery History of thyroidectomy Hx of colonoscopy History of Problems with Anesthesia: No Social History Social History Are you a primary restorative care technician to a significant other at home: No Do you presently have visiting nurse or other home services: No Alcohol intake: never Patient Tobacco Use Status: Current everyday Tobacco user Tobacco use type: Cigarette Cigarettes Per Day: 15 e-Cigarette/Vaping Use: Never Used Second Hand Smoke Exposure: No Have you been hit, kicked, punched, or otherwise hurt by someone within the past year? 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 Allergies Allergy/AdvReac Type Severity Reaction Status Date / Time cephalexin Allergy Mild Unknown Verified 05/08/22 10:15 SOME ANTIBIOTICS Allergy Unknown ITCH,THROAT Uncoded 05/08/22 10:15 SWELLING imitrex Allergy Unknown Unknown Uncoded 05/08/22 10:15 PCN Allergy Unknown rash, oral Uncoded 05/08/22 10:15 swelling Home Medications Medication Instructions Recorded Confirmed Last Taken Type clonazepam 0.5 mg tablet 1 tab PO DAILY 08/27/22 08/27/22 08/26/22 History Exam Airway Mallampati Class: III TM Dist: >3cm Neck ROM: Full Loose/Missing/Broken Teeth: Yes (Implants , fillings ) Heart: S1,S2 Lungs: b/l breath sounds Assessment and Plan Assessment Anesthesia Assessment: Anesthesia Plan Discussed Final Anesthetic Review Family History of Problems with Anesthesia: No History of Problems with Anesthesia: No NPO: Yes ASA Class: III Final Preanesthetic Review: Meds/Allgs Chart Reviewed, Consent Obtained/Reviewed and Anes Risks/Benef Reviewed Patient Risk: Intermediate Procedure Risk: Intermediate Anesthetic Plan Anesthetic Plan: GA and Regional Block Disposition: Standard PACU
--- NOTE | 2022-08-21 18:52 | PC.NURSE ---
Patient called notification given that procedure will require cancellation and re-schedule related to surgeon illness
[2022-08-27] VITALS (15 sets, daily range): BP systolic 119–146; BP diastolic 48–79; PULSE 85–95; RESP 16–20; TEMP 36.2–36.6; O2SAT 93–96
--- NOTE | 2022-08-27 09:32 | PC.NURSE ---
ls clear no meds taken today
[2022-08-27] MEDS: Lactated Ringers 1,000 ML 100 ML IVCONT (09:44)
--- NOTE | 2022-08-27 12:31 | P.BOP_ITS ---
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
--- NOTE | 2022-08-27 12:44 | W.PM.OPN ---
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 All bony prominences were well padded and the limb was prepped and draped in standard sterile fashion. A time out was called to identify proper site, proper procedure and proper surgeon. IV antibiotics per weight were administered. I began by making a posterolateral stab incision with a 15 blade. A blunt trochar was placed into the glenohumeral joint and I insufflated the joint with saline and a 30 degree arthroscope was placed. I established an outside- in anterior portal just distal to the biceps tendon. I then began my inspection of the glenohumeral joint. The biceps was intact.The subscapularis was intact. There was anterior interval synovitis. There were no cartilage changes and the labrum was intact. I debrided the anterior interval synovitis. There was no evidence of full thickness or undersurface RTC tearing. I then removed the trochar and entered the subacromial space. A direct lateral portal was then established and I performed a bursectomy. The cuff was then examined. There was apartial thickness intra-substance tear of the supraspinatus without tendone involvement ( approximately 25% thickness torn). This did not require repair. I then performed a 5 mm subacromial decompression anterioroly and a 5 mm distal clavicle excision via the anterior protal taking care to preserve the superior capsule. Once I was satisfied with the extent of bony debridement I removed all instrumentation. Portals were closed with nylon. Patient was placed in an abduction sling, extubated and brought to the recovery room in stable condition. There were no known complications.
[2022-08-27] MEDS: Acetaminophen 1,000 MG/100 ML PIGGYBACK 400 MG IV (13:07)
== END 2022-08-27 16:30 | disposition home or self-care (01) ==
PROVIDERS: PCP Physician Assistant; Visit Provider Orthopaedic Surgery
PROC: (CPT 29827; principal; 2022-08-27 11:00)
DX: M75.101 Unspecified rotator cuff tear or rupture of right shoulder, not specified as traumatic (principal); M19.011 Primary osteoarthritis, right shoulder; M75.41 Impingement syndrome of right shoulder; I10 Essential (primary) hypertension; E78.5 Hyperlipidemia, unspecified; E03.9 Hypothyroidism, unspecified; Z79.899 Other long term (current) drug therapy; Z88.0 Allergy status to penicillin; Z88.1 Allergy status to other antibiotic agents; Z88.8 Allergy status to other drugs, medicaments and biological substances; F17.210 Nicotine dependence, cigarettes, uncomplicated
CPT/HCPCS: 29827; 29826; 29824; J0131; J0171; J1100; J2250; J2370; J2405; J2795; J3010

== ENCOUNTER → 2022-11-10 09:54 | Outpatient (BNVA) | payer OTHER, SELFPAY | PROVIDERS: PCP Physician Assistant; Visit Provider Physician Assistant | DX: Z13.89 Encounter for screening for other disorder (principal) ==

== ENCOUNTER 2022-11-11 10:00 | Outpatient (RCR) | payer OTHER, SELFPAY ==
--- NOTE | 2022-09-01 11:50 | MHC.PT.EP ---
[facility] [place] Office [place] Office [place] Office [address] Brigette Pulliam [address] [phone] F: [phone] F: [phone] F: [phone] F: [phone] Physical Therapy Plan of Care Date of Evaluation: Date of Surgery: 08/27/22 Diagnosis: RIGHT SHOULDER SAD AND DCE (PARTIAL THICKNESS SUBSCAP NOT REPAIRED) Assessment: ANGELICA IS A PLEASANT 62 YO FEMALE S/P SAD/DCE ON 08/27/22. PRESENTS POD #5 FOR ORTHOPEDIC FOLLOW UP AND PT EVALUATION. UPON EXAM SHE DEMONSTRATES THE EXPECTED IMPAIRMENTS OF DECREASED ROM, DECREASED STRENGTH, ALTERED POSTURE AND POSITIONING, INCREASED UPPER TRAP GUARDING, AND INCREASED PAIN AND EDEMA. FUNCTIONAL LIMITATIONS INCLUDE DECREASED ABILITY TO PERFORM HOMEMAKING AND SELF-CARE TASKS, DECREASED ABILITY TO PERFORM PUSHING, PULLING, LIFTING AND REACHING. DECREASED ABILITY TO DRIVE AND PERFORM WORK TASKS, DECREASED PARTICIPATION IN COMMUNITY AND RECREATIONAL ACTIVITIES AND DISRUPTED SLEEP. THE PT IS A GOOD CANDIDATE FOR SKILLED PT DUE TO AGE, POTENTIAL REMEDIATION OF IMPAIRMENTS, TYPICAL DISEASE/CONDITION PROGRESSION AND PROGNOSIS, COMORBIDITIES, AND MOTIVATION. PT WOULD BENEFIT FROM TAILORED PROGRAM OF THERAPEUTIC ACTIVITIES, FUNCTIONAL TRAINING,, POSTURAL EDUCATION, NEUROMUSCULAR RE-EDUCATION, AND MODALITIES NEEDED. Frequency and Duration: The patient will be seen 2 X WEEK FOR 4 WEEKS Short Term Goals: INITIATE HEP AND PROMOTE SELF MANAGEMENT OF SYMPTOMS Process Area Supervisor Goals: FULL, PAIN FREE ROM FULL UE STRENGTH, PAIN FREE TO PERFORM COMPUTER AND WORK TASKS WITHOUT RESTRICTION AND PAIN NO GREATER THAN 2/[address] OBJECT AT MINIMUM OF 5# INTO CABINET AT SHOULDER HEIGHT Treatment Plan: Modalities to reduce pain, spasms and effusion. Manual therapy to restore motion and function. Therapeutic exercise to improve strength and flexibility. Neuromuscular re-education for posture and balance. Therapeutic activities to return to functional activities of daily living. Electronically signed by: KEEGAN MANDEL PT, DPT Please sign and return to therapist. Thank you for your referral.
--- NOTE | 2023-02-09 16:16 | MHC.PT.DC ---
[facility] [place] Office [place] Office [place] Office [address] Brigette Pulliam [address] [phone] F: [phone] F: [phone] F: [phone] F: [phone] Physical Therapy Discharge Report Diagnosis: RIGHT SHOULDER SAD AND DCE (PARTIAL THICKNESS SUPRASPINATUS NOT REPAIRED) Date of Surgery: 08/27/22 Date of Evaluation: 09/01/22 Date of Discharge: 02/09/23 Treatments to Date: 16 Cancellations to Date: 0 No Shows to Date: 0 Discharge Status: Improved Function Independent with HEP Discharge Summary: AT LAST PT SESSION ON 11/11/22 OVERALL BETTER FROM SOC BUT CONTINUES WITH LIMITED END RANGE OF MOTION. IN SUP R SHLDER HCRE=214, ABD=95, ER=60. REV ALL HOME EXS AND STRETCHES (WITH EMPHASIS ON STRETCHING) WITH 2 WK FU FOR REASSESS ROM (TRIAL LIFT LIGHT WT TO CABINET ALSO ONE OF LTGS) FOR DC . Pt WAS TO COME IN 1-2 WKS FOR FU ASSESSMENT/DC BUT NO FURTHER APPTS SCHEDULED. Electronically signed by: DEEPAK BOSTON PT Please sign and return to therapist. Thank you for your referral.
== END 2023-02-09 16:16 | disposition home or self-care (01) ==
LOC: HO.PT 10:00
PROVIDERS: Visit Provider Physician Assistant
DX: M75.101 Unspecified rotator cuff tear or rupture of right shoulder, not specified as traumatic (principal)
CPT/HCPCS: 97110; 97140; 97161; 97535

== ENCOUNTER 2023-04-17 07:54 | Outpatient (REF) | payer OTHER, SELFPAY ==
--- NOTE | ~2023-04-17 | MM_ITS ---
EXAMINATION: MM DIAGNOSTIC DIGITAL BREAST TOMOSYNTHESIS, BILATERAL CLINICAL INFORMATION: Palpable area and mild tenderness right breast for approximately 2 months. Due for yearly. Prior mammography 2014. The lifetime risk of breast cancer based on the Tyrer-Cuzick Model is 6%. COMPARISON: Mammography: 05/31/2015, 03/31/2014 TECHNIQUE: Digital breast tomosynthesis is performed in both the craniocaudal and mediolateral oblique views along with computer-aided detection (CAD). Synthesized 2D images are generated from the tomosynthesis. Three additional views are obtained: spot right ML x2 and rolled right CC. Ultrasound right breast is targeted to both areas of interest, mid upper breast and medial right breast using grayscale imaging and color Doppler without and with harmonics. FINDINGS: Mammography: There are scattered areas of fibroglandular density (ACR BI-RADS breast composition Category b). Left breast parenchymal pattern is similar to prior exams. No developing density or interval mass or architectural abnormality. Neither breast shows abnormal calcifications. The axilla and skin contours are unremarkable. No skin thickening or coarsening of the Teja's ligaments. Right breast has 2 findings. In the area of clinical symptoms there is a 1.5 cm area of fatty attenuation with surrounding incompletely encircling stromal markings. The appearance is suggestive of fat necrosis. There is no focal skin thickening or dimpling. The other finding is mid 12:00 position where since small oval nodule measuring under 5 mm. No surrounding spiculation. The remainder the right breast is unremarkable. Ultrasound: Ultrasound medial breast in area of symptoms demonstrates a vague mildly hyperechoic lesion just beneath the skin measuring approximately 1.6 cm in diameter. There is some scattered nonfocal shadowing from this area. The size, location, and shape is consistent with the mammography and suggestive of fat necrosis. Ultrasound of the mid upper breast also demonstrates a an oval hyperechoic area measuring approximately 1.0 x 0.5 cm with a internal cystic focus 0.4 cm. Finding is also suggestive of fat necrosis. Management: Findings are discussed with the patient at time of imaging. Patient is queried regarding recent trauma. She confirms that when moving an air conditioner she sustained trauma to the right breast, including ecchymosis at both sites at that time. Management plan is for short interval six-month follow-up diagnostic right mammography. Ultrasound may be performed if warranted at that visit. MM/MM tomosynthesis diagnostic BI IMPRESSION: Right: -2 sites suspicious for benign fat necrosis related to recent trauma mid medial right breast and mid upper right breast, respectively. Left: -No mammographic evidence of malignancy. ASSESSMENT: BI-RADS 3: Probably Benign RECOMMENDATION: Diagnostic right mammography in 6 months. This patient's information was entered into a reminder system with a target due date for their next mammogram.
== END 2023-04-17 07:55 | disposition home or self-care (01) ==
LOC: HO.MAMMO 07:54
PROVIDERS: Visit Provider Physician Assistant
DX: N63.12 Unspecified lump in the right breast, upper inner quadrant (principal)
CPT/HCPCS: 76641; 77062; 77066

== ENCOUNTER 2023-09-08 08:05 | Outpatient (AMB) | payer OTHER, SELFPAY ==
[2023-09-08 08:07] VITALS: BP 124/72; PULSE 74; O2SAT 95; BMI 34.8
--- NOTE | 2023-09-08 08:07 | A.OFFPC_ITS ---
Vital Signs 3 09/08/23 08:07 Height 5 ft Weight 178 lb BMI 34.8 BP 124/72 Blood Pressure Location Lt brachial Position Sitting Pulse 74 Pulse Source Pulse Oximeter Pulse Oximetry (%) 95 Oxygen Delivery Method Room Air Intake Visit Reasons: Physical Exam Allergies cephalexin Allergy (Mild, Verified 09/08/23 08:17) Unknown SOME ANTIBIOTICS Allergy (Unknown, Uncoded 09/08/23 08:07) ITCH,THROAT SWELLING imitrex Allergy (Unknown, Uncoded 09/08/23 08:07) Unknown PCN Allergy (Unknown, Uncoded 09/08/23 08:07) rash, oral swelling Medication List - Last Reconciled 09/08/23 by Aguilar Benavides PA-C atorvastatin 40 mg PO DAILY clonazepam 1 tab PO DAILY fluoxetine 10 mg PO DAILY levothyroxine 137 mcg PO DAILY Tobacco use date assessed: 09/08/23 Fall risk assessment: No Falls in past year Last assessed Fall Risk: 09/08/23 Dental Screening Dental Screen Date: 09/08/23 Did you have a dental visit in the last 12 months?: Yes Did you have a dental problem in the last 6 months where you did not have access to dental care?: No Was dental information given to patient?: Patient has dentist HPI Physical Exam 2 HPI0 Details Patient is a 63-year-old female here today for annual physical. Patient has a past medical history of hypothyroidism, hyperlipidemia, depression, anxiety. Concern--> reports falling last week and injuring the left side of her hip. She does not feel she broke anything, will supply with anti-inflammatory. Also she reports getting a tummy tuck many years ago and has developed a small abscess around her umbilicus. She does note some drainage from time to time. Will Refer to general surgeon for I&D. Underwent a right shoulder rotator cuff tear repair last year doing well. . HYpothyroid: dd have a thyroiectomy 20 years ago.. Has yet to get labs done is willing to do so today. Continues on levothyroxine 137 mcg Needs a TSH checked .. Hyperlipidemia: Patient continues on statin therapy without side effect, has not had her lipids checked .. Anxiety: Dr. Lan in [place] whom prescribes her mental health meds. .. Colonoscopy: Need repeat colonoscopy as her last one was [address]. [address] referral to GI .. Mammogram: Had mammogram done in April of 2023, BI-RADS 3. Vaccines: Up-to-date with COVID vaccine, tetanus vaccine, needs pneumonia vaccine and flu vaccine [facility] Medical History (Updated 09/08/23 @ 09:20 by Aguilar Benavides PA-C) Breast mass, right Rotator cuff tear, right Smoker HLD (hyperlipidemia) Hypothyroidism Hypothyroidism HTN (hypertension) Surgical History Hx of colonoscopy History of thyroidectomy History of plastic surgery Family History Father Heart problem Mother Stroke Diabetes Brother Acute CVA (cerebrovascular accident) Social History (Updated 09/08/23 @ 08:23 by Aguilar Benavides PA-C) Housing: Apartment Are you a primary home health care physician to a significant other at home: No Do you presently have visiting nurse or other home services: No Alcohol intake: never Patient Tobacco Use Status: Former Tobacco user Quit Date: 2022 Tobacco use type: Cigarette Cigarettes Per Day: 15 e-Cigarette/Vaping Use: Never Used Second Hand Smoke Exposure: No Current occupational status: employed 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 1. Little interest or pleasure in doing things: nearly every day 2. Feeling down, depressed, or hopeless: nearly every day 3. Trouble falling or staying asleep, or sleeping too much: not at all 4. Feeling tired or having little energy: several days 5. Poor appetite or overeating: not at all 6. Feeling bad about yourself - or that you are a failure or have let yourself or your family down: not at all 7. Trouble concentrating on things, such as reading the newspaper or watching television: several days 8. Moving or speaking so slowly that other people could have noticed. Or the opposite - being so fidgety or restless that you have been moving around a lot more than usual: not at all 9. Thoughts that you would be better off or of hurting yourself in some way: not at all Total score: 8 Depression Screening Interpretation: Positive Depression Screening Follow-up: Existing condition and In treatment Depression Screening Done: Yes 30266 - PHQ-9 Billing: Yes Source: Developed by Drs. Mich Espinoza, Aguila Vick and colleagues, with an educational stanley from [employer]. Thrive Questionnaire Date Thrive assessed: 09/08/23 I am a: Patient What is your living situation today?: I have a steady place to live Within the past 12 months, did the food you bought not last and you didn't have the money to get more?: Never true Within the past 12 months, did you worry whether your food would run out before you got money to buy more?: Never true Do you have trouble paying for medicines?: No Do you have trouble getting transportation to medical appointments?: No Do you have trouble paying your heating and electricity bill?: No Do you have trouble taking care of your child, family member or friend?: No Do you have trouble with day-to-day activities such as bathing, preparing meals, shopping, managing finances, etc.?: No Are you currently unemployed and looking for a job?: No Are you interested in more education?: No Currently or been in a relationship where the following occur: no concerns reported AUDIT C Alcohol Use Questionnaire (AUDIT-C) 1. How often do you have a drink containing alcohol?: Never 3. How often do you have six or more drinks on one occasion?: Never Total Score: 0 MARIELY-7 AMB Questionnaire MARIELY-7 Date MARIELY - 7 assessed: 09/08/23 Feeling nervous, anxious, or on edge: 3 = Nearly every day Not being able to stop or control worryin = Not at all Worrying too much about different things: 0 = Not at all Trouble relaxin = Not at all Being so restless that it is hard to sit still: 0 = Not at all Becoming easily annoyed or irritable: 0 = Not at all Feeling afraid as if something awful might happen: 0 = Not at all Total MARIELY-7 score (0-4 normal; 5-9 mild; 10-14 moderate; 15-21 severe): 3 Source: Developed by Drs. Mich Espinoza, Aguila Vick and colleagues, with an educational stanley from [employer]. MARIELY-7 Assessment Billing MARIELY-7 Assessment Tool: MARIELY-7 Assessment 51530 Review of Systems Const Denies body aches, Denies chills, Denies excessive sweating, Denies fatigue, Denies fever(s) and Denies headache(s) Eyes Denies blurry vision ENT Denies dysphagia, Denies vertigo, Denies dizziness, Denies headache(s), Denies hearing loss and Denies tinnitus Card Denies chest pain, Denies chest pain with activity, Denies syncope, Denies irregular heart rhythm and Denies dyspnea Resp Denies chest congestion, Denies cough, Denies hemoptysis, Denies dyspnea and Denies wheezing GI Denies abdominal pain, Denies melena, Denies hematochezia, Denies coffee ground emesis, Denies dysphagia, Denies diarrhea, Denies nausea and Denies vomiting Denies urinary frequency, Denies dysuria, Denies urinary hesitancy and Denies urinary urgency Musc Denies arthralgias, Denies limited range of motion, Denies muscle cramps and Denies muscle weakness Skin/Breast Denies rash and Denies skin ulcer Neuro Denies Abnormal speech present, Denies confusion, Denies vertigo, Denies dizziness, Denies syncope, Denies headache(s), Denies memory loss and Denies seizure-like activity Psych Denies anxiety, Denies confusion, Denies depression, Denies memory loss, Denies panic attacks and Denies paranoia Endo Denies excessive sweating, Denies fatigue, Denies flushing, Denies polydipsia and Denies polyuria Aller/Immun Denies wheezing Physical exam (Primary Care) Vital Signs: Last Vital Signs Pulse 74 09/08/23 08:07 BP 124/72 09/08/23 08:07 Pulse Ox 95 09/08/23 08:07 Oxygen Delivery Method Room Air 09/08/23 08:07 BMI result Body Mass Index 34.8 BMI Assessment/Plan discussion: High Tobacco/Smoking Status: Tobacco use Status Tobacco use date assessed 09/08/23 09/08/23 08:13 Patient Tobacco Use Status Former Tobacco user 09/08/23 08:23 Tobacco use type Cigarette 09/08/23 08:23 e-Cigarette/Vaping Use Never Used 09/08/23 08:23 PHQ-9: PHQ-9 Score PHQ-9: Total score 8 09/08/23 08:19 Depression Screening Interpretation: Positive Depression Screening Follow-up: Existing condition and In treatment Thrive Assessment: Date of Thrive Assessment Date Thrive assessed 09/08/23 09/08/23 08:13 Currently or been in a relationship where the following occur: no concerns reported Const Other: Obese General: cooperative, comfortable, no acute distress, alert and awake; No confusion Orientation/consciousness: oriented to person, oriented to place, patient oriented x3 and No confusion HENMT Head: Yes normocephalic Ears: external ears normal and TM's normal bilaterally Face and sinus: No sinus tenderness Mouth: Normal oral and palatal mucosa present and tongue normal Teeth and gingiva: dentition normal and gingiva normal Throat: Yes posterior oropharynx normal, Yes tonsils normal and Yes uvula midline Eyes Conjunctivae: conjunctivae normal Sclerae: sclerae normal Pupils: Equal, round and reactive pupils present EOM: EOMs intact bilaterally Direct Ophthalmoscopy: No no photophobia Neck Neck: Yes no lymphadenopathy, No tender and Yes no JVD Thyroid: Thyroid normal Carotids: no bruits Chest Chest palpation & inspection: no tenderness Resp Effort & Inspection: normal respiratory effort, no audible wheezes, not labored and no stridor Auscultation: no crackles, no rales, no rhonchi and no wheezes Cardio Jugular venous distension: no JVD Rate: regular rate, not bradycardic and not tachycardic Rhythm: regular rhythm Bruits: no carotid bruits Peripheral pulses: Peripheral pulses 2+ throughout GI Inspection: Yes normal to inspection, No abdominal wall ecchymosis and No visible herniation Palpation (GI): Soft to palpation, nontender, no guarding, not rigid and No hepatosplenomegaly present Auscultation: normoactive bowel sounds Abdomen image: 2 1. SMALL ABSCESS FORMATION WITH NOTED PURULENT DRAINAG. General: Yes no CVA tenderness Back/Spine/Pelvis Back: no CVA tenderness and No back tenderness Cervical Spine: cervical ROM normal Thoracic/Lumbar Spine: thoracic and lumbar spine normal to inspection, straight leg raise negative bilaterally, No thoraco-lumbar ROM limited and No lumbar spinal tenderness Skin Lesions: no lesions Rashes: no rashes Wounds: no wounds Neuro General: oriented to person, oriented to place, patient oriented x3, CN's II-XI intact bilaterally and No confusion Cranial nerves: Yes Equal, round and reactive pupils present and Yes Normal accommodation reflex present Cognition (Neuro): normal cognition Speech: No Abnormal speech present Gait exam (Neuro): Normal gait present Motor exam (neuro): 5/5 motor strength present throughout Extrem Right upper extremity: full ROM; no cyanosis Left upper extremity: full ROM; no cyanosis Right lower extremity: no edema Left lower extremity: no edema Psych Appearance: grossly normal Mental Status: mental status grossly normal Affect: normal affect Attitude: cooperative Thought process: Normal thought process present Office Procedures Flu Questionnaire Does the patient have a severe egg allergy?: No Does the patient have severe life threatening allergies?: No Does the patient have a fever or illness today?: No Has the patient ever had Guillain-[place] Syndrome?: No Has the patient ever had any past reaction to a flu shot?: No Immunizations flu vacc [id number] 6mos up(PF) 60 mcg(15 mcgx4)/0.5 mL IM syringe Performing Provider: Aguilar Benavides PA-C Performing Location: [facility] Administered by: MK Turpin on 09/08/23 08:47 2 Dose Route Admin Location Dispensed Lot Number Expiration Date [facility] Advertising Specialist 0.5 mL IM Left Deltoid 0.5 mL [id number] 05/01/24 [id number] [employer] 2 VIS Given Date VIS Provided VIS Publication Date 09/08/23 Single Vaccine 21 Eligibility Eligibility Date Funding Source Not VFC Eligible 09/08/23 Private pneumoc 20-prabha conj-dip cr(PF) 0.5 mL IM syringe Performing Provider: Aguilar Benavides PA-C Performing Location: [facility] Administered by: MK Turpin on 09/08/23 08:47 2 Dose Route Admin Location Dispensed Lot Number Expiration Date [facility] Advertising Specialist 0.5 mL IM Left Deltoid 0.5 mL [id number] 08/02/24 [employer] 2 VIS Given Date VIS Provided VIS Publication Date 09/08/23 Single Vaccine 21 Eligibility Eligibility Date Funding Source Not VFC Eligible 09/08/23 Private Assessment and Plan Assessment & Plan (1) Annual physical exam: Code(s): Z00.00 - Encounter for general adult medical examination without abnormal findings (2) Hypothyroidism: Code(s): E03.9 - Hypothyroidism, unspecified Qualifiers: Hypothyroidism type: unspecified Qualified Code(s): E03.9 - Hypothyroidism, unspecified Plan: Patient continues on levothyroxine 137 mcg. Has lost a few lb since last office visit. Seems to be clinically euthyroid. Needs TSH checked to assure normal. (3) Abscess, umbilical: Code(s): L02.216 - Cutaneous abscess of umbilicus Plan: Developed an abscess over bed look all region. She is several years status post tummy tuck procedure. She does report having some discharge from this abscess formation. Will refer to general surgeon for surgical I&D. (4) Impaired glucose metabolism: Code(s): R73.09 - Other abnormal glucose Plan: Patient has a history of impaired glucose metabolism. Has been working on lifestyle modifications to reduce her carbohydrates. Will check an A1c to assure not in diabetic range. (5) HLD (hyperlipidemia): Code(s): E78.5 - Hyperlipidemia, unspecified Qualifiers: Hyperlipidemia type: mixed hyperlipidemia Qualified Code(s): E78.2 - Mixed hyperlipidemia Plan: Patient continues on statin therapy without side effect. Will check fasting lipid panel to assure appropriate total cholesterol and LDL. Goal LDL to remain below 160 (6) Former smoker: Code(s): Z87.891 - Personal history of nicotine dependence Plan: Patient quit smoking last week. She continues to want to stay a former smoker. Offered nicotine replacement though patient declines. (7) Colon cancer screening: Code(s): Z12.11 - Encounter for screening for malignant neoplasm of colon Plan: Needs for colonoscopy (8) Obese: Code(s): E66.9 - Obesity, unspecified Qualifiers: Body mass index: BMI 31.0-31.9 Obesity classification: adult class 1 (BMI 30 - 34.9) Obesity type: due to excess calories Serious obesity comorbidity presence: without serious comorbidity Qualified Code(s): E66.09 - Other obesity due to excess calories; Z68.31 - Body mass index [BMI] 31.0-31.9, adult Plan: Patient does understand her BMI is over 30 and has been working on lifestyle modifications to reduce her weight. Orders: Orders 2 Lipid Panel Today E78.2 - Mixed hyperlipidemia Comprehensive [place]. Panel Fast Today E78.2 - Mixed hyperlipidemia Pneumococcal 20 Immunization Today Z23 - Encounter for immunization, Z98.890 - Other specified postprocedural states TSH reflex Free T4 Today E03.9 - Hypothyroidism, unspecified Hemoglobin A1c Today R73.09 - Other abnormal glucose Influenza [id number] Immunization Today Z23 - Encounter for immunization Referrals 2 Gastroenterology Referral Z12.11 - Encounter for screening for malignant neoplasm of colon General Surgery Referral L02.216 - Cutaneous abscess of umbilicus Medications: New 2 meloxicam 15 mg PO DAILY 15 days 15 tabs 0RF Z98.890 - Other specified postprocedural states Coding Level of Care Code Est Pt Prev Care 40-64y(13159) Diagnoses Annual physical exam Z00.00 Hypothyroidism, unspecified type E03.9 Hypothyroidism type: unspecified Abscess, umbilical L02.216 Impaired glucose metabolism R73.09 Mixed hyperlipidemia E78.2 Hyperlipidemia type: mixed hyperlipidemia Former smoker Z87.891 Colon cancer screening Z12.11 Class 1 obesity due to excess calories without serious comorbidity with body mass index (BMI) of 31.0 to 31.9 in adult E66.09; Z68.31 Body mass index: BMI 31.0-31.9 Obesity classification: adult class 1 (BMI 30 - 34.9) Obesity type: due to excess calories Serious obesity comorbidity presence: without serious comorbidity Additional Codes MARIELY-7 Assessment Billing - MARIELY-7 Assessment Tool: MARIELY-7 Assessment 94040 ([id number])
== END 2023-09-08 08:49 | disposition home or self-care (01) ==
PROVIDERS: Visit Provider Physician Assistant
DX: Z00.00 Encounter for general adult medical examination without abnormal findings (principal); E03.9 Hypothyroidism, unspecified; L02.216 Cutaneous abscess of umbilicus; R73.09 Other abnormal glucose; E78.2 Mixed hyperlipidemia; Z23 Encounter for immunization; Z87.891 Personal history of nicotine dependence; E66.09 Other obesity due to excess calories; Z68.31 Body mass index [BMI] 31.0-31.9, adult; Z98.890 Other specified postprocedural states
CPT/HCPCS: 90471; 90472; 90677; 90686; 99396

== ENCOUNTER 2023-09-29 13:12 | Outpatient (AMB) | payer OTHER, SELFPAY ==
--- NOTE | 2023-09-29 13:13 | MHC.OFFVIS ---
Intake Vital Signs 09/29/23 13:20 Height 5 ft Weight 176 lb BMI 34.4 BP 128/68 Blood Pressure Location Rt brachial Position Sitting Pulse 94 Intake Visit Reasons: Umbilical hernia Intake Note: Ptient referred by Aguilar Benavides PA-C for umbilical hernia. Has been present for 5 yrs. Noticed after tummy tuck years ago. Patient c/o: Mild pain at times. 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 Patient had abdominal plasty approximately 10 years ago and this has persisted ever since. It occasionally discharge is clear or bloody fluid. She has no other GI issues or complaints. No other incisional issues. Chart was reviewed patient evaluated [facility] Medical History Breast mass, right Rotator cuff tear, right Smoker HLD (hyperlipidemia) Hypothyroidism Hypothyroidism HTN (hypertension) Surgical History Hx of colonoscopy History of thyroidectomy History of plastic surgery Family History Father Heart problem Mother Stroke Diabetes Brother Acute CVA (cerebrovascular accident) Social History Housing: Apartment Are you a primary health care recruiter to a significant other at home: No Do you presently have visiting nurse or other home services: No Alcohol intake: never Patient Tobacco Use Status: Former Tobacco user Quit Date: 2022 Tobacco use type: Cigarette Cigarettes Per Day: 15 e-Cigarette/Vaping Use: Never Used Second Hand Smoke Exposure: No Current occupational status: employed 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 Infraumbilical indurated area measuring approximately 5 x 4 cm. Remaining abdominal exam benign. No obvious hernias. Soft. Moderately corpulent. Assessment & Plan Assessment & Plan (1) Abdominal wall mass: Code(s): R22.2 - Localized swelling, mass and lump, trunk Plan I am unsure of the precise etiology of this process. Patient may have a festering deeply situated stitch abscess from the original surgery. She wishes to have this area excised. Risks, benefits, alternatives of excision of this area with wound exploration reviewed with the patient and included but not limited to bleeding, infection, recurrence, numbness, pain, scarring and the patient wishes to proceed. All questions were answered. Arrangements will be made for this. Coding Level of Care Code New Pt Level 5 (66041) Diagnoses Abdominal wall mass R22.2
[2023-09-29 13:20] VITALS: BP 128/68; PULSE 94; BMI 34.4
== END 2023-09-29 13:21 | disposition home or self-care (01) ==
PROVIDERS: PCP Physician Assistant; Visit Provider Surgery
DX: R22.2 Localized swelling, mass and lump, trunk (principal)
CPT/HCPCS: 99204

== ENCOUNTER → 2023-09-29 13:12 | Outpatient (BNVA) | payer OTHER, SELFPAY | PROVIDERS: PCP Physician Assistant; Visit Provider Surgery | DX: K42.9 Umbilical hernia without obstruction or gangrene (principal); R22.2 Localized swelling, mass and lump, trunk | CPT/HCPCS: 99202 ==

== ENCOUNTER 2023-11-03 08:00 | Outpatient (AMB) | payer OTHER, SELFPAY ==
--- NOTE | 2023-11-03 08:04 | A.OFFVIS_ITS ---
Intake Vital Signs 11/03/23 08:05 Height 5 ft Weight 176 lb BMI 34.4 BP 120/74 Blood Pressure Location Lt brachial Position Sitting Pulse 82 Intake Visit Reasons: Colonoscopy screening Intake Note: Patient new consult for 2nd pre colonoscopy screening. Patient denies any GI issues. 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 Required: No Accompanied by: Family/Other Allergies cephalexin Allergy (Mild, Verified 09/29/23 13:18) Unknown SOME ANTIBIOTICS Allergy (Unknown, Uncoded 09/29/23 13:18) ITCH,THROAT SWELLING imitrex Allergy (Unknown, Uncoded 09/29/23 13:18) Unknown PCN Allergy (Unknown, Uncoded 09/29/23 13:18) rash, oral swelling Medication List - Last Reconciled 11/03/23 by Sona Rangel PA-C atorvastatin 40 mg PO DAILY clonazepam 1 tab PO DAILY fluoxetine 10 mg PO DAILY levothyroxine 137 mcg PO DAILY HPI HPI Comments History of Present Illness Details A 63 y/o female referred for 10 year screening colonoscopy- No fam hx crc Bowels are normal Appetite is good- No cardiac or respiratory- c/o No N/V/D fever or chills PFSH Medical History (Updated 11/03/23 @ 08:25 by Sona Rangel PA-C) Arthritis Depression GERD (gastroesophageal reflux disease) Breast mass, right Rotator cuff tear, right Hypothyroidism HLD (hyperlipidemia) Smoker HTN (hypertension) Surgical History History of thyroidectomy History of plastic surgery Family History Father Heart problem Mother Stroke Diabetes Brother Acute CVA (cerebrovascular accident) Social History Housing: Apartment Are you a primary patient care technician to a significant other at home: No Do you presently have visiting nurse or other home services: No Alcohol intake: never Patient Tobacco Use Status: Former Tobacco user Quit Date: 2022 Tobacco use type: Cigarette Cigarettes Per Day: 15 e-Cigarette/Vaping Use: Never Used Second Hand Smoke Exposure: No Current occupational status: employed 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, 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 needs: No Hearing needs: No Vision needs: No Review of Systems Const All systems reviewed & are unremarkable except as noted in HPI and below Card Denies chest pain and Denies dyspnea Resp Denies dyspnea GI Denies abdominal pain and Denies heartburn Physical Exam Const General: cooperative, healthy appearing, comfortable, no acute distress and well groomed Orientation/consciousness: patient oriented x3 Limitations: no limitations Eyes Sclerae: sclerae normal Resp Effort & Inspection: normal respiratory effort and able to speak in complete sentences Auscultation: clear to auscultation bilaterally, no rales, no rhonchi and no wheezes Cardio Rate: regular rate Rhythm: regular rhythm Heart sounds: S1 normal heart sound present and S2 normal heart sound present GI Palpation (GI): Soft to palpation and nontender Auscultation: normal bowel sounds Skin General skin exam: no rashes or lesions noted Neuro General: patient oriented x3 Psych Appearance: grossly normal and well kempt Speech and movement: Normal speech and movement present and Clear speech present Affect: normal affect Attitude: cooperative Thought process: Normal thought process present Thought content: Normal thought content present Insight: Good insight present (Psych) Assessment & Plan Assessment & Plan (1) Colon cancer screening: Comment: very pleasant-discuss procedure, rare risks need for escort Code(s): Z12.11 - Encounter for screening for malignant neoplasm of colon Plan: screening colonoscopy MG prep Plan screening colonoscopy MG prep Orders: Orders Colonoscopy - GI Use Only Today Z12.11 - Encounter for screening for malignant neoplasm of colon Medications: New bisacodyl (Dulcolax (bisacodyl)) Day before procedure, prep day Take 4 tablets by mouth upon awakening followed by large glass of water 20 mg (4 x 5 mg) PO ONCE 1 day 4 tabs 0RF colonoscopy prep Z12.11 - Encounter for screening for malignant neoplasm of colon polyethylene glycol 3350 (Miralax) Take as directed by mouth the day before your procedure. 238 grams PO ONCE 1 day PRN 238 grams 0RF laxative effect Patient Instructions: pleasant 63 y/o female- no GI complaints- screening colonoscopy MG prep Call with questions or concerns Coding Level of Care Code Est Pt Level 3 (45044) Diagnoses Colon cancer screening Z12.11 Time Spent (min) 25
[2023-11-03 08:05] VITALS: BP 120/74; PULSE 82; BMI 34.4
== END 2023-11-03 09:03 | disposition home or self-care (01) ==
PROVIDERS: PCP Physician Assistant; Visit Provider Physician Assistant
DX: Z12.11 Encounter for screening for malignant neoplasm of colon (principal); Z01.818 Encounter for other preprocedural examination
CPT/HCPCS: 99213

== ENCOUNTER → 2023-11-03 08:00 | Outpatient (BNVA) | payer OTHER, SELFPAY | PROVIDERS: PCP Physician Assistant; Visit Provider Physician Assistant | DX: Z01.818 Encounter for other preprocedural examination (principal) | CPT/HCPCS: 99212 ==

== ENCOUNTER 2023-11-05 10:22 | Day surgery (SDC) | payer OTHER, SELFPAY ==
[2023-10-30 17:34] VITALS: BMI 31.1
--- NOTE | 2023-11-04 11:49 | MHC.SHP ---
Pre-Procedural Eval Section A Date of Service: 11/04/23 The patient is an INPATIENT: No Changes since office visit: No Cold of Flu in the past 2 weeks, No New Medical Problems, No Changes in Medication and No Patient answered all questions The History & Physical has been completed within 30 days and I have reviewed it.: Yes Section B Chief Complaint: Localized swelling, mass and lump, trunk Allergies: Allergies Allergy/AdvReac Type Severity Reaction Status Date / Time cephalexin Allergy Mild Unknown Verified 09/29/23 13:18 SOME ANTIBIOTICS Allergy Unknown ITCH,THROAT Uncoded 09/29/23 13:18 SWELLING imitrex Allergy Unknown Unknown Uncoded 09/29/23 13:18 PCN Allergy Unknown rash, oral Uncoded 09/29/23 13:18 swelling Plan I have reviewed the history and physical and performed a pertinent physical examination on my patient. No changes have occurred unless specified. Time Spent With Patient Time: Total time managing care of this patient today ____ minutes.
[2023-11-05 12:44] VITALS: BP 145/74; PULSE 81; RESP 16; TEMP 36.4; O2SAT 97; BMI 32.2
--- NOTE | 2023-11-05 14:28 | PC.NURSE ---
Abd examined by Dr Avendaño pre-operatively. Small open area mid abd is noted. Procedure to be done as noted
--- NOTE | 2023-11-05 16:05 | HO.ANESPROP2 ---
Documented by User: Lea Milan NP 11/04/23 09:23 HPI - Anesthesia Eval Consult details Narrative: 63yo F for Wide Local Excision Abdominal Wall Mass PMFSH Active Problems Active Problems: All Active Problems (Updated 11/03/23 @ 08:25 by Sona Rangel PA-C) Abdominal wall mass (Acute) Former smoker (Acute) Abscess, umbilical (Acute) Impaired glucose metabolism (Acute) S/P right rotator cuff repair (Acute) Left shoulder pain (Acute) Cervical spine pain (Acute) Fibromyalgia (Acute) Annual physical exam (Acute) Colon cancer screening (Acute) Screening for diabetes mellitus (DM) (Acute) Obese (Acute) HLD (hyperlipidemia) (Acute) Hypothyroidism (Acute) Past Medical History Medical History (Updated 11/03/23 @ 08:25 by Sona Rangel PA-C) Arthritis Depression GERD (gastroesophageal reflux disease) Breast mass, right Rotator cuff tear, right Hypothyroidism HLD (hyperlipidemia) Smoker HTN (hypertension) Family History Family History Father Heart problem Mother Stroke Diabetes Brother Acute CVA (cerebrovascular accident) Family history of problems with anesthesia: No Surgical History Surgical History History of thyroidectomy History of plastic surgery History of Problems with Anesthesia: No Social History Social History Housing: Apartment Are you a primary hourly caregiver to a significant other at home: No Do you presently have visiting nurse or other home services: No Alcohol intake: never Patient Tobacco Use Status: Former Tobacco user Quit Date: 2022 Tobacco use type: Cigarette Cigarettes Per Day: 15 e-Cigarette/Vaping Use: Never Used Second Hand Smoke Exposure: No Use of substances other than those prescribed or required for medical reasons: No Are you DNR?: No Advance Directives: No Advance Directives Information Provided: Yes Advance Directives on File: No Recently lost weight without trying: No Nutrition Risks: No Nutritional Risk Current occupational status: employed 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, 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 needs: No Hearing needs: No Vision needs: No Meds Allergies Allergy/AdvReac Type Severity Reaction Status Date / Time cephalexin Allergy Mild Unknown Verified 09/29/23 13:18 SOME ANTIBIOTICS Allergy Unknown ITCH,THROAT Uncoded 09/29/23 13:18 SWELLING imitrex Allergy Unknown Unknown Uncoded 09/29/23 13:18 PCN Allergy Unknown rash, oral Uncoded 09/29/23 13:18 swelling Home Medications Medication Instructions Recorded Confirmed Last Taken Type clonazepam 0.5 mg tablet 1 tab PO DAILY 08/27/22 11/03/23 08/26/22 History fluoxetine 10 mg capsule 10 mg PO DAILY 09/08/23 11/03/23 Unknown History Exam Height,Weight and Vital Signs: Height 5 ft 2 in Weight 77.111 kg Assessment and Plan Assessment Anesthesia Assessment: Chart Reviewed Final Anesthetic Review Family History of Problems with Anesthesia: No History of Problems with Anesthesia: No Documented by User: Bárbara Sagastume DO 11/05/23 16:07 [facility] Past Medical History Medical History (Updated 11/03/23 @ 08:25 by Sona Rangel PA-C) Arthritis Depression GERD (gastroesophageal reflux disease) Breast mass, right Rotator cuff tear, right Hypothyroidism HLD (hyperlipidemia) Smoker HTN (hypertension) Family History Family History Father Heart problem Mother Stroke Diabetes Brother Acute CVA (cerebrovascular accident) Family history of problems with anesthesia: No Surgical History Surgical History History of thyroidectomy History of plastic surgery History of Problems with Anesthesia: No Social History Social History Housing: Apartment Are you a primary hourly caregiver to a significant other at home: No Do you presently have visiting nurse or other home services: No Alcohol intake: never Patient Tobacco Use Status: Former Tobacco user Quit Date: 2022 Tobacco use type: Cigarette Cigarettes Per Day: 15 e-Cigarette/Vaping Use: Never Used Second Hand Smoke Exposure: No Use of substances other than those prescribed or required for medical reasons: No Are you DNR?: No Advance Directives: No Advance Directives Information Provided: Yes Advance Directives on File: No Recently lost weight without trying: No Nutrition Risks: No Nutritional Risk Current occupational status: employed 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, 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 needs: No Hearing needs: No Vision needs: No Meds Allergies Allergy/AdvReac Type Severity Reaction Status Date / Time cephalexin Allergy Mild Unknown Verified 09/29/23 13:18 SOME ANTIBIOTICS Allergy Unknown ITCH,THROAT Uncoded 09/29/23 13:18 SWELLING imitrex Allergy Unknown Unknown Uncoded 09/29/23 13:18 PCN Allergy Unknown rash, oral Uncoded 09/29/23 13:18 swelling Home Medications Medication Instructions Recorded Confirmed Last Taken Type clonazepam 0.5 mg tablet 1 tab PO DAILY 08/27/22 11/03/23 08/26/22 History fluoxetine 10 mg capsule 10 mg PO DAILY 09/08/23 11/03/23 Unknown History Exam Exam Date and Time: November 05, 2023 160 Height,Weight and Vital Signs: Height 5 ft 2 in Weight 77.111 kg Height 5 ft 2 in Weight 79.889 kg Vital Signs Temperature 97.6 F 11/05/23 12:44 Pulse Rate 81 11/05/23 12:44 Respiratory Rate 16 11/05/23 12:44 Blood Pressure 145/74 H 11/05/23 12:44 Pulse Oximetry 97 11/05/23 12:44 Oxygen Delivery Method Room Air 11/05/23 12:44 Temperature 97.6 F 11/05/23 12:44 Pulse Rate 81 11/05/23 12:44 Respiratory Rate 16 11/05/23 12:44 Blood Pressure 145/74 H 11/05/23 12:44 Pulse Oximetry 97 11/05/23 12:44 Oxygen Delivery Method Room Air 11/05/23 12:44 Airway Mallampati Class: II TM Dist: <=3cm Neck ROM: Full Loose/Missing/Broken Teeth: No Heart: S1S2 Lungs: CTAB Assessment and Plan Assessment Anesthesia Assessment: Anesthesia Plan Discussed and Chart Reviewed Final Anesthetic Review Family History of Problems with Anesthesia: No History of Problems with Anesthesia: No NPO: Yes ASA Class: II Final Preanesthetic Review: No Changes in Pt Med Stat, Meds/Allgs Chart Reviewed, Consent Obtained/Reviewed and Anes Risks/Benef Reviewed Patient Risk: Low Procedure Risk: Low Anesthetic Plan Anesthetic Plan: MAC: and Agree w/ Assess. and Plan Disposition: Standard PACU
--- NOTE | 2023-11-05 16:45 | W.PM.OPN ---
Operative Note Operative Note Date of Service: 11/05/23 Narrative: Preoperative diagnosis: [] Status post abdominoplasty, chronic draining lower midline sinus Postop diagnosis: [] Same, stitch abscess Procedure [] wound exploration, wide local excision abdominal wall sinus tract, removal of culprit Prolene stitch Surgeon: [] Jarocho Desktop Support Engineer: [] Ghulam Type of Anesthesia: [] MAC Indication for surgery: [] Intraoperative findings demonstrated marked cicatrization and scarring down to a sinus track were at the base along the fascia was an isolated Prolene suture. En block resection was performed. Specimen measured approximately 8 x 5 cm. Findings: [] Patient brought to the operating room, placed on table supine position, after adequate level of MAC anesthesia was induced, the patient's abdomen was prepped and draped in usual sterile fashion. Using a transverse bi- elliptical incision with final specimen size as mentioned above, this carried down through skin, subcutaneous tissue, down to the fascia where a sinus track was uneventfully excised at the base at the fascial level and an isolated Prolene suture etiology of tract was identified. This was also removed. Superficial fascial defect was reapproximated using interrupted 0 Vicryl sutures. Wound was irrigated, secured hemostasis, and closed using interrupted inverted dermal 3-0 Vicryl sutures followed by Steri-Strips and sterile dressings. Wounds infiltrated 0.5% Marcaine/1% lidocaine at the beginning and end of the case. Sponge, needle, and instrument counts reported correct. Patient tolerated the procedure well and emerged anesthesia stable condition. EBL minimal
[2023-11-05 16:50] VITALS: BP 93/51; PULSE 92; RESP 18; TEMP 36.2; O2SAT 93
[2023-11-05 17:05] VITALS: BP 124/62; PULSE 88; RESP 20; TEMP 36.4; O2SAT 97
== END 2023-11-05 17:09 | disposition home or self-care (01) ==
PROVIDERS: PCP Physician Assistant; Visit Provider Surgery
PROC: (CPT 11406; principal; 2023-11-05 12:30)
DX: T81.89XA Other complications of procedures, not elsewhere classified, initial encounter (principal); R22.2 Localized swelling, mass and lump, trunk; K63.2 Fistula of intestine; Y82.8 Other medical devices associated with adverse incidents; Z18.9 Retained foreign body fragments, unspecified material; I10 Essential (primary) hypertension; E78.5 Hyperlipidemia, unspecified; E03.9 Hypothyroidism, unspecified; Z79.899 Other long term (current) drug therapy; Z88.0 Allergy status to penicillin; Z88.1 Allergy status to other antibiotic agents; Z88.8 Allergy status to other drugs, medicaments and biological substances; Z87.891 Personal history of nicotine dependence
CPT/HCPCS: 11406; 88305; 88307; J0736; J1885; J2250; J2704; J2795; J3010

== ENCOUNTER → 2023-11-05 10:22 | Outpatient (BNV) | payer OTHER, SELFPAY | PROVIDERS: PCP Physician Assistant; Visit Provider Surgery | DX: T81.42XA Infection following a procedure, deep incisional surgical site, initial encounter (principal) | CPT/HCPCS: 22903 ==

== ENCOUNTER 2023-11-16 09:59 | Outpatient (AMB) | payer OTHER, SELFPAY ==
[2023-11-16 10:01] VITALS: BP 134/68; PULSE 86
--- NOTE | 2023-11-16 10:01 | A.OFFVIS_ITS ---
Intake Vital Signs 11/16/23 10:01 Weight 181 lb BP 134/68 Blood Pressure Location Lt brachial Position Sitting Pulse 86 Intake Visit Reasons: S/P WLE abd. wall mass Intake Note: Patient here s/p WLE abd wall. States healing well. No longer taking rx pain meds. Patient c/o: mild drainage. Court Supervisor Required: No Accompanied by: Self / Same As Patient Allergies cephalexin Allergy (Mild, Verified 11/16/23 10:07) Unknown SOME ANTIBIOTICS Allergy (Unknown, Uncoded 11/16/23 10:07) ITCH,THROAT SWELLING imitrex Allergy (Unknown, Uncoded 11/16/23 10:07) Unknown PCN Allergy (Unknown, Uncoded 11/16/23 10:07) rash, oral swelling HPI HPI Comments History of Present Illness Details Patient presents for follow-up. She has had some clear drainage from the incision otherwise doing well. Pathology was reviewed. [facility], [facility] Medical History (Updated 11/03/23 @ 08:25 by oSna Rangel PA-C) Arthritis Depression GERD (gastroesophageal reflux disease) Breast mass, right Rotator cuff tear, right Hypothyroidism HLD (hyperlipidemia) Smoker HTN (hypertension) Surgical History History of thyroidectomy History of plastic surgery Family History Father Heart problem Mother Stroke Diabetes Brother Acute CVA (cerebrovascular accident) Social History Housing: Apartment Are you a primary primary care nurse to a significant other at home: No Do you presently have visiting nurse or other home services: No Alcohol intake: never Patient Tobacco Use Status: Former Tobacco user Quit Date: 2022 Tobacco use type: Cigarette Cigarettes Per Day: 15 e-Cigarette/Vaping Use: Never Used Second Hand Smoke Exposure: No Current occupational status: employed 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 Nonpurulent. No evidence of cellulitis or abscess. Assessment & Plan Assessment & Plan (1) Seroma due to trauma: Code(s): T79.2XXA - Traumatic secondary and recurrent hemorrhage and seroma, initial encounter (2) Abdominal wall mass: Code(s): R22.2 - Localized swelling, mass and lump, trunk Plan Patient was reassured at present time she has a seroma. She has been given local instructions and will see me in proximal weeks time or p.r.n.. All questions answered. Coding Level of Care Code Global (57956) Diagnoses Seroma due to trauma T79.2XXA Abdominal wall mass R22.2
== END 2023-11-16 10:22 | disposition home or self-care (01) ==
PROVIDERS: PCP Physician Assistant; Visit Provider Surgery
DX: T79.2XXA Traumatic secondary and recurrent hemorrhage and seroma, initial encounter (principal); R22.2 Localized swelling, mass and lump, trunk
CPT/HCPCS: 99024

== ENCOUNTER → 2023-11-16 09:59 | Outpatient (BNVA) | payer OTHER, SELFPAY | PROVIDERS: PCP Physician Assistant; Visit Provider Surgery | DX: T79.2XXA Traumatic secondary and recurrent hemorrhage and seroma, initial encounter (principal); R22.2 Localized swelling, mass and lump, trunk | CPT/HCPCS: 99212 ==

== ENCOUNTER 2023-11-24 | Outpatient (REF) | payer OTHER, SELFPAY | END 2023-11-24 00:01 | disposition home or self-care (01) | LOC: CF | PROVIDERS: PCP Physician Assistant; Visit Provider Surgery | DX: R22.2 Localized swelling, mass and lump, trunk (principal); T79.2XXA Traumatic secondary and recurrent hemorrhage and seroma, initial encounter; X58.XXXA Exposure to other specified factors, initial encounter | CPT/HCPCS: 99212 ==

== ENCOUNTER 2023-11-24 09:21 | Outpatient (AMB) | payer OTHER, SELFPAY ==
[2023-11-24 09:37] VITALS: BP 136/88; PULSE 88
--- NOTE | 2023-11-24 09:37 | A.OFFVIS_ITS ---
Intake Vital Signs 11/24/23 09:37 Weight 180 lb BP 136/88 Blood Pressure Location Rt brachial Position Sitting Pulse 88 Intake Visit Reasons: S/P WLE abd. wall mass Intake Note: Patient here s/p WLE abd wall mass on 11-05-23. Patient c/o minimal drainage. Set Builder Required: No Accompanied by: Self / Same As Patient Allergies cephalexin Allergy (Mild, Verified 11/24/23 09:39) Unknown SOME ANTIBIOTICS Allergy (Unknown, Uncoded 11/24/23 09:39) ITCH,THROAT SWELLING imitrex Allergy (Unknown, Uncoded 11/24/23 09:39) Unknown PCN Allergy (Unknown, Uncoded 11/24/23 09:39) rash, oral swelling HPI HPI Comments History of Present Illness Details Patient has almost completely healing over abdominal incision. She has had some serous drainage which has markedly decreased. [facility] Medical History Arthritis Depression GERD (gastroesophageal reflux disease) Breast mass, right Rotator cuff tear, right Hypothyroidism HLD (hyperlipidemia) Smoker HTN (hypertension) Surgical History History of thyroidectomy History of plastic surgery Family History Father Heart problem Mother Stroke Diabetes Brother Acute CVA (cerebrovascular accident) Social History Housing: Apartment Are you a primary healthcare insurance sales agent to a significant other at home: No Do you presently have visiting nurse or other home services: No Alcohol intake: never Patient Tobacco Use Status: Former Tobacco user Quit Date: 2022 Tobacco use type: Cigarette Cigarettes Per Day: 15 e-Cigarette/Vaping Use: Never Used Second Hand Smoke Exposure: No Current occupational status: employed 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 Syndrome part of incision has some granulating tissue which was probed with a Q-tip and no evidence of any infection or cellulitis or abscess. Dressing was applied. Assessment & Plan Assessment & Plan (1) Abdominal wall mass: Code(s): R22.2 - Localized swelling, mass and lump, trunk (2) Seroma due to trauma: Code(s): T79.2XXA - Traumatic secondary and recurrent hemorrhage and seroma, initial encounter Plan Patient is continue local therapy in form of Band-Aid and once this stops being stained, she can stop applying a dressing. All questions answered. Patient will otherwise follow-up p.r.n.. Coding Level of Care Code Global (85604) Diagnoses Abdominal wall mass R22.2 Seroma due to trauma T79.2XXA
== END 2023-11-24 10:07 | disposition home or self-care (01) ==
PROVIDERS: PCP Physician Assistant; Visit Provider Surgery
DX: R22.2 Localized swelling, mass and lump, trunk (principal); T79.2XXA Traumatic secondary and recurrent hemorrhage and seroma, initial encounter
CPT/HCPCS: 99024

== ENCOUNTER 2024-03-09 07:56 | Outpatient (AMB) | payer OTHER, SELFPAY ==
--- NOTE | 2024-03-09 07:57 | MHC.PC.OV ---
Vital Signs 03/09/24 07:58 Height 5 ft Weight 191 lb BMI 37.3 BP 118/82 Blood Pressure Location Lt brachial Position Sitting Pulse 78 Pulse Source Pulse Oximeter Pulse Oximetry (%) 95 Oxygen Delivery Method Room Air Intake Visit Reasons: Follow-up hypothyroidism, hyperlipidemia Allergies cephalexin Allergy (Mild, Verified 03/09/24 08:04) Unknown SOME ANTIBIOTICS Allergy (Unknown, Uncoded 03/09/24 08:04) ITCH,THROAT SWELLING imitrex Allergy (Unknown, Uncoded 03/09/24 08:04) Unknown PCN Allergy (Unknown, Uncoded 03/09/24 08:04) rash, oral swelling Medication List - Last Reconciled 03/09/24 by Aguilar Benavides PA-C atorvastatin 40 mg PO DAILY bisacodyl (Dulcolax (bisacodyl)) 20 mg (4 x 5 mg) PO ONCE 1 day clonazepam 1 tab PO DAILY fluoxetine 10 mg PO DAILY levothyroxine 137 mcg PO DAILY polyethylene glycol 3350 (Miralax) 238 grams PO ONCE PRN 1 day Tobacco use date assessed: 03/09/24 Fall risk assessment: 2 + Falls in past year Last assessed Fall Risk: 03/09/24 Dental Screening Dental Screen Date: 03/09/24 Did you have a dental visit in the last 12 months?: Yes Did you have a dental problem in the last 6 months where you did not have access to dental care?: No Was dental information given to patient?: Patient has dentist HPI Follow-up hypothyroidism, hyperlipidemia HPI Details Patient is a 63-year-old female here today for a follow-up visit Patient has a past medical history of hypothyroidism, hyperlipidemia, depression, anxiety. Concern--> Having bilateral feet and hand pain over the last 4-5 month. As been using tylenol and ibuprofen without much relief. She denies any trauma to her hands or feet. Of note has gained weight since last office visit. She does report feeling very fatigued during the day. . HYpothyroid: dd have a thyroiectomy 20 years ago.. Has yet to get labs done is willing to do so today. Continues on levothyroxine 137 mcg Needs a TSH checked .. Hyperlipidemia: Patient continues on statin therapy without side effect, has not had her lipids checked .. Anxiety: Dr. Lan in [place] whom prescribes her mental health meds. Laboratory Tests 04/03/22 06:37 RBC 4.68 Random Glucose 120 H [facility] Medical History Arthritis Depression GERD (gastroesophageal reflux disease) Breast mass, right Rotator cuff tear, right Hypothyroidism HLD (hyperlipidemia) Smoker HTN (hypertension) Surgical History History of thyroidectomy History of plastic surgery Family History Father Heart problem Mother Stroke Diabetes Brother Acute CVA (cerebrovascular accident) Social History Housing: Apartment Are you a primary director of healthcare systems to a significant other at home: No Do you presently have visiting nurse or other home services: No Alcohol intake: never Patient Tobacco Use Status: Former Tobacco user Quit Date: 2022 Tobacco use type: Cigarette Cigarettes Per Day: 15 e-Cigarette/Vaping Use: Never Used Second Hand Smoke Exposure: No Current occupational status: employed 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 1. Little interest or pleasure in doing things: nearly every day 2. Feeling down, depressed, or hopeless: nearly every day 3. Trouble falling or staying asleep, or sleeping too much: not at all 4. Feeling tired or having little energy: several days 5. Poor appetite or overeating: not at all 6. Feeling bad about yourself - or that you are a failure or have let yourself or your family down: not at all 7. Trouble concentrating on things, such as reading the newspaper or watching television: several days 8. Moving or speaking so slowly that other people could have noticed. Or the opposite - being so fidgety or restless that you have been moving around a lot more than usual: not at all 9. Thoughts that you would be better off or of hurting yourself in some way: not at all Total score: 8 Depression Screening Interpretation: Positive Depression Screening Follow-up: Existing condition and In treatment Depression Screening Done: Yes 60538 - PHQ-9 Billing: Yes Source: Developed by Drs. Mich Espinoza, Perlita Avina, Aguila Harris and colleagues, with an educational stanley from [employer]. Thrive Questionnaire Date Thrive assessed: 03/09/24 I am a: Patient What is your living situation today?: I have a steady place to live Within the past 12 months, did the food you bought not last and you didn't have the money to get more?: Never true Within the past 12 months, did you worry whether your food would run out before you got money to buy more?: Never true Do you have trouble paying for medicines?: No Do you have trouble getting transportation to medical appointments?: No Do you have trouble paying your heating and electricity bill?: No Do you have trouble taking care of your child, family member or friend?: No Do you have trouble with day-to-day activities such as bathing, preparing meals, shopping, managing finances, etc.?: No Are you currently unemployed and looking for a job?: No Are you interested in more education?: No Currently or been in a relationship where the following occur: no concerns reported THRIVE Score: 0 AUDIT C Alcohol Use Questionnaire (AUDIT-C) 1. How often do you have a drink containing alcohol?: Never 3. How often do you have six or more drinks on one occasion?: Never Total Score: 0 MARIELY-7 AMB Questionnaire MARIELY-7 Date MARIELY - 7 assessed: 03/09/24 Feeling nervous, anxious, or on edge: 3 = Nearly every day Not being able to stop or control worryin = Not at all Worrying too much about different things: 0 = Not at all Trouble relaxin = Not at all Being so restless that it is hard to sit still: 0 = Not at all Becoming easily annoyed or irritable: 0 = Not at all Feeling afraid as if something awful might happen: 0 = Not at all Total MARIELY-7 score (0-4 normal; 5-9 mild; 10-14 moderate; 15-21 severe): 3 Source: Developed by Perlita Franco Kurt Kroenke and colleagues, with an educational stanley from [employer]. MARIELY-7 Assessment Billing MARIELY-7 Assessment Tool: MARIELY-7 Assessment 94552 Review of Systems Const Denies headache(s) Eyes Denies loss of vision ENT Denies vertigo, Denies dizziness, Denies headache(s) and Denies sore throat Card Denies chest pain, Denies leg edema and Denies lightheadedness Resp Denies cough, Denies hemoptysis and Denies wheezing GI Denies abdominal pain, Denies melena, Denies constipation, Denies diarrhea and Denies vomiting Denies urinary frequency, Denies dysuria and Denies urinary urgency Musc Denies arthralgias, Denies joint swelling, Denies numbness and Denies tingling Neuro Denies Abnormal speech present, Denies behavioral changes, Denies vertigo, Denies dizziness, Denies headache(s), Denies loss of vision, Denies memory loss, Denies numbness and Denies tingling Psych Denies anxiety, Denies behavioral changes, Denies depression, Denies memory loss and Denies panic attacks Kolby/Lymph Denies easy bleeding and Denies easy bruising Aller/Immun Denies wheezing Physical exam (Primary Care) Vital Signs: Last Vital Signs Pulse 78 03/09/24 07:58 BP 118/82 03/09/24 07:58 Pulse Ox 95 03/09/24 07:58 Oxygen Delivery Method Room Air 03/09/24 07:58 BMI result Body Mass Index 37.3 Tobacco/Smoking Status: Tobacco use Status Tobacco use date assessed 03/09/24 03/09/24 08:02 Patient Tobacco Use Status Former Tobacco user 03/09/24 08:02 Tobacco use type Cigarette 03/09/24 08:02 e-Cigarette/Vaping Use Never Used 03/09/24 08:02 PHQ-9: PHQ-9 Score PHQ-9: Total score 8 03/09/24 08:05 Depression Screening Interpretation: Positive Depression Screening Follow-up: Existing condition and In treatment Thrive Assessment: Date of Thrive Assessment Date Thrive assessed 03/09/24 03/09/24 08:02 Currently or been in a relationship where the following occur: no concerns reported Const General: healthy appearing, no acute distress, alert and awake Nutritional Appearance: well nourished Orientation/consciousness: oriented to person, oriented to place and oriented to time HENMT Ears: TM's normal bilaterally General nose exam: Normal nasal mucous membranes and turbinates present Eyes Conjunctivae: conjunctivae normal Sclerae: sclerae normal Pupils: Equal, round and reactive pupils present Neck Neck: Yes no lymphadenopathy and Yes no JVD Thyroid: Thyroid normal Carotids: no bruits Resp Effort & Inspection: normal respiratory effort and not tachypneic Auscultation: no crackles, no rales, no rhonchi and no wheezes Cardio Rate: regular rate Rhythm: regular rhythm Heart sounds: no murmurs and normal S1 and S2 GI Palpation (GI): Soft to palpation, nontender, no hepatomegaly and no splenomegaly Auscultation: normal bowel sounds Skin General skin exam: no rashes or lesions noted and dry skin Neuro General: oriented to person, oriented to place and oriented to time Cranial nerves: Yes Equal, round and reactive pupils present Speech: No Abnormal speech present Gait exam (Neuro): Normal gait present Motor exam (neuro): no tremor noted Extrem Right upper extremity: full ROM Left upper extremity: full ROM Right lower extremity: full ROM; no edema Left lower extremity: full ROM; no edema Psych Mental Status: mental status grossly normal Speech and movement: Normal speech and movement present Affect: normal affect Attitude: cooperative Thought process: Normal thought process present Assessment and Plan Assessment & Plan (1) Hypothyroidism: Code(s): E03.9 - Hypothyroidism, unspecified Qualifiers: Hypothyroidism type: unspecified Qualified Code(s): E03.9 - Hypothyroidism, unspecified Plan: Patient continues on levothyroxine 137 mcg. Has lost a few lb since last office visit. She does report some daytime fatigue Seems to be clinically euthyroid. Needs TSH checked to assure normal. (2) Impaired glucose metabolism: Code(s): R73.09 - Other abnormal glucose Plan: Patient has a history of impaired glucose metabolism. Unfortunately has gained weight since last office visit. Has been working on lifestyle modifications to reduce her carbohydrates. Will check an A1c to assure not in diabetic range. (3) HLD (hyperlipidemia): Code(s): E78.5 - Hyperlipidemia, unspecified Qualifiers: Hyperlipidemia type: mixed hyperlipidemia Qualified Code(s): E78.2 - Mixed hyperlipidemia Plan: Patient continues on statin therapy without side effect. Will check fasting lipid panel to assure appropriate total cholesterol and LDL. Goal LDL to remain below 160 (4) Former smoker: Code(s): Z87.891 - Personal history of nicotine dependence Plan: Has quit smoking over the last 6 months. Unfortunately gained weight. She continues to want to stay a former smoker. Offered nicotine replacement though patient declines. (5) Obese: Code(s): E66.9 - Obesity, unspecified Qualifiers: Body mass index: BMI 31.0-31.9 Obesity classification: adult class 1 (BMI 30 - 34.9) Obesity type: due to excess calories Serious obesity comorbidity presence: without serious comorbidity Qualified Code(s): E66.09 - Other obesity due to excess calories; Z68.31 - Body mass index [BMI] 31.0-31.9, adult Plan: Patient does understand her BMI is over 30 and has been working on lifestyle modifications to reduce her weight. (6) Bilateral foot pain: Code(s): M79.671 - Pain in right foot; M79.672 - Pain in left foot (7) Bilateral hand pain: Code(s): M79.641 - Pain in right hand; M79.642 - Pain in left hand Plan: Reports fairly severe bilateral hand and feet pain. Get x-rays to evaluate for any advanced osteoarthritis or inflammatory arthritis. Also will send for rheumatology testing as well. Will supply patient with meloxicam to use on a p.r.n. basis for her arthralgias. (8) MDD (major depressive disorder), recurrent episode, mild: Code(s): F33.0 - Major depressive disorder, recurrent, mild Plan: Patient's PHQ-9 score positive for depression which has been existing condition. She continues on fluoxetine 10 mg with decent affect on her depression anxiety. Does speak with a mental health therapist and does have a mental health med provider who manages her mental health medications Orders: Orders XR hand RT 2V Today M79.641 - Pain in right hand, M79.642 - Pain in left hand XR foot RT 2V Today M79.671 - Pain in right foot, M79.672 - Pain in left foot Cyclic Citrullinated Peptide Today M79.641 - Pain in right hand, M79.642 - Pain in left hand DNA Double Stranded-Crithidia Today M79.641 - Pain in right hand, M79.642 - Pain in left hand Erythrocyte Sedimentation Rate Today M79.641 - Pain in right hand, M79.642 - Pain in left hand IRON PROFILE Today D50.9 - Iron deficiency anemia, unspecified, R73.09 - Other abnormal glucose XR hand LT 2V Today M79.641 - Pain in right hand, M79.642 - Pain in left hand XR foot LT 2V Today M79.671 - Pain in right foot, M79.672 - Pain in left foot HEIDE Reflex Titer and Pattern Today M79.641 - Pain in right hand, M79.642 - Pain in left hand Rheumatoid Factor Today M79.641 - Pain in right hand, M79.642 - Pain in left hand Complete Blood Count no Diff Today R73.09 - Other abnormal glucose Medications: New meloxicam 15 mg PO DAILY 30 tabs 0RF 30 days M79.641 - Pain in right hand, M79.642 - Pain in left hand Patient Instructions: Goal: LDL to remain below 130 Barriers: Adherence to physical activity and healthy eating habits. Coding Level of Care Code Est Pt Level 4 (00107) Diagnoses Hypothyroidism, unspecified type E03.9 Hypothyroidism type: unspecified Impaired glucose metabolism R73.09 Mixed hyperlipidemia E78.2 Hyperlipidemia type: mixed hyperlipidemia Former smoker Z87.891 Class 1 obesity due to excess calories without serious comorbidity with body mass index (BMI) of 31.0 to 31.9 in adult E66.09; Z68.31 Body mass index: BMI 31.0-31.9 Obesity classification: adult class 1 (BMI 30 - 34.9) Obesity type: due to excess calories Serious obesity comorbidity presence: without serious comorbidity Bilateral foot pain M79.671; M79.672 Bilateral hand pain M79.641; M79.642 MDD (major depressive disorder), recurrent episode, mild F33.0 Additional Codes MARIELY-7 Assessment Billing - MARIELY-7 Assessment Tool: MARIELY-7 Assessment [id number] ([id number])
[2024-03-09 07:58] VITALS: BP 118/82; PULSE 78; O2SAT 95; BMI 37.3
== END 2024-03-09 08:22 | disposition home or self-care (01) ==
PROVIDERS: PCP Physician Assistant; Visit Provider Physician Assistant
DX: E78.2 Mixed hyperlipidemia (principal); F33.0 Major depressive disorder, recurrent, mild; Z68.31 Body mass index [BMI] 31.0-31.9, adult; E03.9 Hypothyroidism, unspecified; R73.09 Other abnormal glucose; E66.09 Other obesity due to excess calories; Z87.891 Personal history of nicotine dependence; M79.671 Pain in right foot; M79.672 Pain in left foot; M79.641 Pain in right hand; M79.642 Pain in left hand
CPT/HCPCS: 99214

== ENCOUNTER 2024-03-09 08:31 | Outpatient (REF) | payer OTHER, SELFPAY ==
--- NOTE | ~2024-03-09 | XR_ITS ---
EXAMINATION: XR FOOT, RIGHT CLINICAL INFORMATION: Pain in right foot COMPARISON: None available. TECHNIQUE: AP, lateral, and oblique views of the right foot. FINDINGS: The bones are mildly diffusely demineralized. The bones are intact. No fracture. Alignment is anatomic. There is mild narrowing with small marginal osteophytes of the first metatarsophalangeal joint. The second through fifth toes are flexed limiting evaluation. Tiny posterior plantar calcaneal spur and small Achilles enthesophyte are noted. Arterial vascular calcification is also seen. XR/XR foot RT 2V IMPRESSION: 1. No acute bony abnormality. 2. Mild degenerative change of the first metatarsophalangeal joint.
--- NOTE | ~2024-03-09 | XR_ITS ---
EXAMINATION: XR HAND, LEFT CLINICAL INFORMATION: Pain in left hand COMPARISON: Same-day right hand TECHNIQUE: PA, lateral, and oblique views of the left hand. FINDINGS: The bones are mildly diffusely demineralized. The bones are intact. The patient's ring obscures the proximal phalanx of the thumb. No fracture. Alignment is anatomic. Joint spaces are maintained. No erosions or soft tissue calcifications. XR/XR hand LT 2V IMPRESSION: No acute bony abnormality.
--- NOTE | ~2024-03-09 | XR_ITS ---
EXAMINATION: XR HAND, RIGHT CLINICAL INFORMATION: Same-day left hand COMPARISON: None available. TECHNIQUE: PA, lateral, and oblique views of the right hand. FINDINGS: The bones are mildly diffusely demineralized. The bones are intact. The patient ring obscures the proximal phalanx of the middle finger. No fracture. Alignment is anatomic. Joint spaces are maintained. No erosions or soft tissue calcifications. XR/XR hand RT 2V IMPRESSION: No acute bony abnormality.
--- NOTE | ~2024-03-09 | XR_ITS ---
EXAMINATION: XR FOOT, LEFT CLINICAL INFORMATION: Pain in left foot COMPARISON: None available. TECHNIQUE: AP, lateral, and oblique views of the left foot. FINDINGS: The bones are mildly diffusely demineralized. The bones are intact. No fracture. Alignment is anatomic. There is mild narrowing of the first metatarsophalangeal joint. Small Achilles enthesophyte is noted. XR/XR foot LT 2V IMPRESSION: Mild degenerative change of the first metatarsophalangeal joint.
[2024-03-09 09:10] LABS: Hematocrit 40.9 % (37.0-47.0); Hemoglobin 14.3 g/dl (12.0-16.0); Mean Corpuscular Hemoglobin 29.6 pg (27.0-33.0); Mean Corpuscular Volume 84.7 fL (80.0-98.0); Mean Platelet Volume 9.2 fL (9.4-12.3); Platelet Count 300 X10*3/uL (160-400); Red Blood Count 4.83 X10*6/uL (4.20-5.50); Red Cell Distribution Width 12.2 % (11.0-16.0); White Blood Count 6.5 X10*3/uL (4.8-10.8)
[2024-03-09 09:23] LABS: Estimated Average Glucose 140 mg/dL; Hemoglobin A1c % 6.5 % (<6.0)
[2024-03-09 09:48] LABS: Alanine Aminotransferase 16 U/L (0-31); Albumin Level 4.3 g/dL (3.5-5.0); Alkaline Phosphatase 74 U/L (39-117); Anion Gap 15 (12-20); Aspartate Amino Transferase 16 U/L (5-31); Bilirubin Total 0.5 mg/dL (0.0-1.0); Blood Urea Nitrogen 15 mg/dL (9-16); Carbon Dioxide 24 mmol/L (22-29); Chloride 107 mmol/L (96-108); Cholesterol 200 mg/dL (<200); Estimated Glomerular Filt Rate > 60; Glucose Fasting 105 mg/dL (60-99); HDL Cholesterol 49 mg/dL (>40); Iron 95 mcg/dL (30-160); LDL Cholesterol Calculated 105 mg/dL (<100); Percent Iron Saturation 29 % (15-50); Sodium 142 mmol/L (135-145); Total Iron Binding Capacity 327 mcg/dL (228-428); Total Protein 7.8 g/dL (6.5-8.0); Triglycerides 234 mg/dL (<150); Unsaturated Iron Binding 232 ug/dL
[2024-03-09 10:06] LABS: TSH reflex Free T4 0.68 uIU/mL (0.32-4.0)
[2024-03-09 10:21] LABS: Erythrocyte Sedimentation Rate 7 MM/HR (0-20)
[2024-03-09 10:30] LABS: Rheumatoid Factor < 13.0 IU/mL (<15.0)
[2024-03-11 15:53] LABS: Cyclic Citrullinated Peptide <16 UNITS
[2024-03-12 20:53] LABS: Anti Nuclear Antibody Screen NEGATIVE (NEGATIVE)
[2024-03-15 14:23] LABS: DNAds, Crithidia Antibody Negative (Negative)
== END 2024-03-09 08:32 | disposition home or self-care (01) ==
LOC: HO.XRAY 08:31
PROVIDERS: PCP Physician Assistant; Visit Provider Physician Assistant
DX: M79.641 Pain in right hand (principal); M79.642 Pain in left hand; M79.671 Pain in right foot; M79.672 Pain in left foot; D50.9 Iron deficiency anemia, unspecified; R73.09 Other abnormal glucose; E03.9 Hypothyroidism, unspecified; E78.2 Mixed hyperlipidemia
CPT/HCPCS: 36415; 73120; 73620; 80053; 80061; 83036; 83540; 84443; 85027; 85652; 86038; 86200; 86255; 86431

== ENCOUNTER 2024-04-19 13:09 | Outpatient (REF) | payer OTHER, SELFPAY ==
--- NOTE | ~2024-04-19 | MM_ITS ---
EXAMINATION: MM DIAGNOSTIC DIGITAL BREAST TOMOSYNTHESIS, BILATERAL CLINICAL INFORMATION: 1 year follow-up for suspected fat necrosis right breast, 2 foci. Patient was scheduled for six-month follow-up on 04/17/2023, however failed to return for one year. Patient also for bilateral screening today. COMPARISON: Mammography: 04/17/2023, 05/01/2015, 03/31/2014. ULTRASOUND: Right breast 04/17/2023. TECHNIQUE: Digital breast tomosynthesis is performed in both the craniocaudal and mediolateral oblique views along with computer-aided detection (CAD). Synthesized 2D images are generated from the tomosynthesis. FINDINGS: There are scattered areas of fibroglandular density (ACR BI-RADS breast composition Category b). Previously seen foci of fat necrosis have resolved on today's examination, confirming the diagnosis. No residua was seen mammographically. Otherwise, there are no suspicious masses, suspicious grouped calcifications, or areas of architectural distortion in either breast. The parenchymal pattern is otherwise stable from prior exams. There is no suspicious skin or axillary abnormality. MM/MM tomosynthesis diagnostic BI IMPRESSION: -No findings suspicious for malignancy. -Previously seen mammographic findings relating to suspected fat necrosis have resolved, confirming the diagnosis. No persistent abnormality on today's examination. -Recommend the patient return to routine annual screening. ASSESSMENT: BI-RADS BI-RADS 1 - Negative RECOMMENDATION: 1 year F/U Results were provided to the patient at time of visit by the technologist. This patient's information was entered into a reminder system with a target due date for their next mammogram.
== END 2024-04-19 13:10 | disposition home or self-care (01) ==
LOC: HO.MAMMO 13:09
PROVIDERS: PCP Physician Assistant; Visit Provider Physician Assistant
DX: N64.1 Fat necrosis of breast (principal)
CPT/HCPCS: 77062; 77066

== ENCOUNTER → 2024-04-19 13:30 | Outpatient (BNV) | payer OTHER, SELFPAY | PROVIDERS: PCP Physician Assistant; Visit Provider Radiology Diagnostic Radiology | DX: R92.323 Mammographic fibroglandular density, bilateral breasts (principal) | CPT/HCPCS: 77062; 77066 ==

== ENCOUNTER 2024-08-02 08:29 | Outpatient (AMB) | payer MEDICARE, SELFPAY ==
--- NOTE | 2024-08-02 08:31 | AM.OFFWIN_ITS ---
Intake Vital Signs 08/02/24 08:32 Height 5 ft Weight 190 lb BMI 37.1 BP 122/84 Blood Pressure Location Rt brachial Position Sitting Pulse 92 Pulse Source Pulse Oximeter Pulse Oximetry (%) 96 Oxygen Delivery Method Room Air Intake Visit Reasons: EP LT foot pain Intake Note: Patient here for left foot pain that started about 2 months ago. She states it initially started at the back of the foot and now it has radiated to the whole foot. Patient Tobacco Use Status: Former Tobacco user Allergies cephalexin Allergy (Mild, Verified 08/02/24 08:33) Unknown SOME ANTIBIOTICS Allergy (Unknown, Uncoded 08/02/24 08:33) ITCH,THROAT SWELLING imitrex Allergy (Unknown, Uncoded 08/02/24 08:33) Unknown PCN Allergy (Unknown, Uncoded 08/02/24 08:33) rash, oral swelling Do you need a note to return to daycare/school/sports/work: No HPI HPI Comments History of Present Illness Details Patient is a 63-year-old female complaining of left foot pain. She states the pain started in the back of her foot and is now radiating towards the front of her foot and the top of her foot. She states this has been going on for 2 months and it is not getting any better. She has not tried using ice, she has not tried resting it. She has not taken any medications to try to make it feel better. She denies any injury or trauma to the area but states she might have done something when she was in [place] for 2 months but she does not recall any specific injury. She states she can walk on it but it is tender mostly in the back of her ankle [facility] Medical History Arthritis Depression GERD (gastroesophageal reflux disease) Breast mass, right Rotator cuff tear, right Hypothyroidism HLD (hyperlipidemia) Smoker HTN (hypertension) Surgical History History of thyroidectomy History of plastic surgery Family History Father Heart problem Mother Stroke Diabetes Brother Acute CVA (cerebrovascular accident) Social History Housing: Apartment Are you a primary school child care attendant to a significant other at home: No Do you presently have visiting nurse or other home services: No Alcohol intake: never Patient Tobacco Use Status: Former Tobacco user Tobacco use type: Cigarette Cigarettes Per Day: 15 e-Cigarette/Vaping Use: Never Used Second Hand Smoke Exposure: No Current occupational status: employed 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, 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 needs: No Hearing needs: No Vision needs: No Review of Systems Const All systems reviewed & are unremarkable except as noted in HPI and below Physical Exam Vital Signs: Last Vital Signs Pulse 92 08/02/24 08:32 BP 122/84 08/02/24 08:32 Pulse Ox 96 08/02/24 08:32 Oxygen Delivery Method Room Air 08/02/24 08:32 BMI result Body Mass Index 37.1 Const General: cooperative, healthy appearing, comfortable, no acute distress and well developed Orientation/consciousness: patient oriented x3 Limitations: no limitations HEENT Head: Yes normal to inspection Ears: hearing grossly normal bilaterally General nose exam: Normal external nose present Face and sinus: Yes normal facial exam Eyes General: appearance normal, both eyes and all related structures Neck Neck: Yes normal visual inspection and Yes full ROM Resp Effort & Inspection: normal respiratory effort and able to speak in complete sentences Skin General skin exam: no rashes or lesions noted Neuro General: patient oriented x3 Extrem General: Yes normal to inspection Left lower extremity: ankle Details: normal to inspection, tenderness Location: of the achilles tendon, no edema and normal ROM; no warmth, no abrasions, no lacerations, no ecchymosis and achilles tendon exam normal and foot Details: normal capillary refill, normal to inspection, tenderness Location: of the dorsal foot Location: proximally and over the Lisfranc joint, toes with normal ROM (with some pain), no edema, vascular exam Details: normal capillary refill, tendon exam Details: active flexion normal and active extension normal and motor-sensory exam Details: light-touch normal; no unusual warmth, no abrasions, no lacerations and no ecchymosis Assessment & Plan Assessment & Plan (1) Ankle pain, left: Code(s): M25.572 - Pain in left ankle and joints of left foot Qualifiers: Chronicity: acute Qualified Code(s): M25.572 - Pain in left ankle and joints of left foot Plan: Likely Achilles tendinitis however with the pain now sending to the top of her foot, I did get an x-ray of the ankle and foot this morning. Recommended she use the meloxicam daily, ice it and rest it as much as possible. Patient declined crutches or other assistive walking devices. She knows if the pain continues, she should follow up with her PCP for possible physical therapy or orthopedics referral. Plan See above Orders: Orders XR foot LT min 3V Today M25.572 - Pain in left ankle and joints of left foot Medications: New meloxicam 15 mg PO DAILY 7 tabs 0RF Discontinued meloxicam Discontinued Reason: Doctor's Order 15 mg PO DAILY 30 days 30 tabs 0RF M79.641 - Pain in right hand, M79.642 - Pain in left hand Coding Level of Care Code Est Pt Level 4 (65969) Diagnoses Acute left ankle pain M25.572 Chronicity: acute
[2024-08-02 08:32] VITALS: BP 122/84; PULSE 92; O2SAT 96; BMI 37.1
== END 2024-08-02 09:06 | disposition home or self-care (01) ==
PROVIDERS: PCP Physician Assistant; Visit Provider Physician Assistant
DX: M25.572 Pain in left ankle and joints of left foot (principal)

== ENCOUNTER → 2024-08-02 08:29 | Outpatient (BNVA) | payer MEDICARE, SELFPAY | PROVIDERS: PCP Physician Assistant ==

== ENCOUNTER 2024-08-02 08:52 | Outpatient (REF) | payer MEDICARE, SELFPAY ==
--- NOTE | ~2024-08-02 | XR_ITS ---
EXAMINATION: XR FOOT, LEFT CLINICAL INFORMATION: Left ankle pain and left foot pain COMPARISON: Left foot 03/09/2024 TECHNIQUE: AP, lateral, and oblique views of the left foot. FINDINGS: Some mild degenerative changes are present at the interphalangeal joints as well as the first MTP joint. No fractures or bony destructive lesions. No ankle joint effusion. Small spur noted at the Achilles insertion, unchanged. XR/XR foot LT min 3V IMPRESSION: Mild unchanged degenerative changes as described above. No acute finding. Electronically signed by: Nirav Patel MD 08/02/2024 10:14 AM EDT
== END 2024-08-02 08:53 | disposition home or self-care (01) ==
LOC: HO.HMGCX 08:52
PROVIDERS: PCP Physician Assistant; Visit Provider Physician Assistant
DX: M25.572 Pain in left ankle and joints of left foot (principal)
CPT/HCPCS: 73630; 99212

== ENCOUNTER 2024-09-13 07:44 | Outpatient (AMB) | payer MEDICARE, SELFPAY ==
--- NOTE | 2024-09-13 08:08 | A.OFFPC_ITS ---
Vital Signs 09/13/24 08:09 Height 5 ft Weight 187 lb 2 oz BMI 36.5 BP 120/76 Blood Pressure Location Lt brachial Position Sitting Pulse 69 Pulse Source Pulse Oximeter Pulse Oximetry (%) 96 Oxygen Delivery Method Room Air Intake Visit Reasons: Annual Exam Intake Note: Patient is here today for a physical. Flat Screen Worker Required: No Testing Tech: Not Required per policy Accompanied by: Self / Same As Patient Allergies cephalexin Allergy (Mild, Verified 09/13/24 08:14) Unknown SOME ANTIBIOTICS Allergy (Unknown, Uncoded 09/13/24 08:14) ITCH,THROAT SWELLING imitrex Allergy (Unknown, Uncoded 09/13/24 08:14) Unknown PCN Allergy (Unknown, Uncoded 09/13/24 08:14) rash, oral swelling Medication List - Last Reconciled 09/13/24 by Aguilar Benavides PA-C atorvastatin 40 mg PO DAILY bisacodyl (Dulcolax (bisacodyl)) 20 mg (4 x 5 mg) PO ONCE 1 day clonazepam 1 tab PO DAILY fluoxetine 10 mg PO DAILY levothyroxine 137 mcg PO DAILY meloxicam 15 mg PO DAILY metformin 500 mg PO DAILY 30 days polyethylene glycol 3350 (Miralax) 238 grams PO ONCE PRN 1 day Tobacco use date assessed: 09/13/24 Fall risk assessment: No Falls in past year Last assessed Fall Risk: 09/13/24 Dental Screening Dental Screen Date: 03/09/24 [facility] Annual Exam HPI Details Patient is a 64-year-old female here today for routine annual physical Patient has a past medical history of hypothyroidism, hyperlipidemia, depression, anxiety. Concern--> patient reports left foot and ankle pain. Recently gotten x-ray of her foot which did show arthritis and bone spur at the Achilles insertion site. She is interested in his seeing a video game repair technician. . She does report feeling very fatigued during the day. . HYpothyroid: dd have a thyroiectomy 20 years ago.. Has yet to get labs done is willing to do so today. Continues on levothyroxine 137 mcg Needs a TSH checked .. Type 2 diabetes: Most recent A1c is 6.5 thus technically patient's type 2 diabetes. She is not interested in metformin due to fears of side effects. She is interested in starting GLP 1 Ozempic to help her with weight loss. .. Hyperlipidemia: Patient continues on statin therapy atorvastatin 40 with good effect. Most recent lipid panel showing borderline high total cholesterol. .. Anxiety: Dr. Lan in [place] whom prescribes her mental health meds. She reports she is now off of trazodone and fluoxetine. Colonoscopy: Need repeat colonoscopy as her last one was 2008. Has upcoming appt with GI for colonoscopy .. Mammogram: Mammogram done in April of 2024 BI-RADS 1.. Vaccines: Up-to-date with COVID vaccine, tetanus vaccine, up-to-date with pneumonia vaccine , needs flu vaccine Laboratory Tests 03/09/24 08:43 Fasting Glucose 105 H Hemoglobin A1c % 6.5 H Triglycerides 234 H Cholesterol 200 H LDL Cholesterol, C alc 105 H TSH 0.68 PFSH Medical History Arthritis Depression GERD (gastroesophageal reflux disease) Breast mass, right Rotator cuff tear, right Hypothyroidism HLD (hyperlipidemia) Smoker HTN (hypertension) Surgical History History of thyroidectomy History of plastic surgery Family History Father Heart problem Mother Stroke Diabetes Brother Acute CVA (cerebrovascular accident) Social History Housing: Apartment Are you a primary geriatric care manager to a significant other at home: No Do you presently have visiting nurse or other home services: No Alcohol intake: never Patient Tobacco Use Status: Former Tobacco user Tobacco use type: Cigarette Cigarettes Per Day: 15 e-Cigarette/Vaping Use: Never Used Second Hand Smoke Exposure: No service: No Current occupational status: employed 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 1. Little interest or pleasure in doing things: not at all 2. Feeling down, depressed, or hopeless: not at all 3. Trouble falling or staying asleep, or sleeping too much: not at all 4. Feeling tired or having little energy: several days 5. Poor appetite or overeating: not at all 6. Feeling bad about yourself - or that you are a failure or have let yourself or your family down: not at all 7. Trouble concentrating on things, such as reading the newspaper or watching television: not at all 8. Moving or speaking so slowly that other people could have noticed. Or the opposite - being so fidgety or restless that you have been moving around a lot more than usual: not at all 9. Thoughts that you would be better off or of hurting yourself in some way: not at all Total score: 1 Depression Screening Interpretation: Positive Depression Screening Done: Yes 03929 - PHQ-9 Billing: Yes Source: Developed by Drs. Mich Espinoza, Perlita Avina, Aguila Harris and colleagues, with an educational stanley from [employer]. Thrive Questionnaire Date Thrive assessed: 09/13/24 I am a: Patient What is your living situation today?: I have a steady place to live Within the past 12 months, did the food you bought not last and you didn't have the money to get more?: Often true Within the past 12 months, did you worry whether your food would run out before you got money to buy more?: Sometimes True Do you have trouble paying for medicines?: No Do you have trouble getting transportation to medical appointments?: No Do you have trouble paying your heating and electricity bill?: No Do you have trouble taking care of your child, family member or friend?: No Do you have trouble with day-to-day activities such as bathing, preparing meals, shopping, managing finances, etc.?: No Are you currently unemployed and looking for a job?: No Are you interested in more education?: No Please select the resources that you would like help with: None Currently or been in a relationship where the following occur: I choose not to answer THRIVE Score: 2 AUDIT C Alcohol Use Questionnaire (AUDIT-C) 1. How often do you have a drink containing alcohol?: Never Total Score: 0 MARIELY-7 AMB Questionnaire MARIELY-7 Date MARIELY - 7 assessed: 09/13/24 Feeling nervous, anxious, or on edge: 1 = Several days Not being able to stop or control worryin = Several days Worrying too much about different things: 1 = Several days Trouble relaxin = Several days Being so restless that it is hard to sit still: 1 = Several days Becoming easily annoyed or irritable: 0 = Not at all Feeling afraid as if something awful might happen: 0 = Not at all Total MARIELY-7 score (0-4 normal; 5-9 mild; 10-14 moderate; 15-21 severe): 5 Source: Developed by Drs. Mich Espinoza, Perlita Avina, Aguila Harris and colleagues, with an educational stanley from [employer]. MARIELY-7 Assessment Billing MARIELY-7 Assessment Tool: MARIELY-7 Assessment 60166 Review of Systems Const Denies body aches, Denies chills, Denies excessive sweating, Denies fatigue, Denies fever(s) and Denies headache(s) Eyes Denies blurry vision ENT Denies dysphagia, Denies vertigo, Denies dizziness, Denies headache(s), Denies hearing loss and Denies tinnitus Card Denies chest pain, Denies chest pain with activity, Denies syncope, Denies irregular heart rhythm and Denies dyspnea Resp Denies chest congestion, Denies cough, Denies hemoptysis, Denies dyspnea and Denies wheezing GI Denies abdominal pain, Denies melena, Denies hematochezia, Denies coffee ground emesis, Denies dysphagia, Denies diarrhea, Denies nausea and Denies vomiting Denies urinary frequency, Denies dysuria, Denies urinary hesitancy and Denies urinary urgency Musc Denies arthralgias, Denies limited range of motion, Denies muscle cramps and Denies muscle weakness Skin/Breast Denies rash and Denies skin ulcer Neuro Denies Abnormal speech present, Denies confusion, Denies vertigo, Denies dizziness, Denies syncope, Denies headache(s), Denies memory loss and Denies seizure-like activity Psych Denies anxiety, Denies confusion, Denies depression, Denies memory loss, Denies panic attacks and Denies paranoia Endo Denies excessive sweating, Denies fatigue, Denies flushing, Denies polydipsia and Denies polyuria Aller/Immun Denies wheezing Physical exam (Primary Care) Vital Signs: Last Vital Signs Pulse 69 09/13/24 08:09 BP 120/76 09/13/24 08:09 Pulse Ox 96 09/13/24 08:09 Oxygen Delivery Method Room Air 09/13/24 08:09 BMI result Body Mass Index 36.5 BMI Assessment/Plan discussion: High BMI High, discussed plan: lifestyle, weight reduction, dietary and physical activity Tobacco/Smoking Status: Tobacco use Status Tobacco use date assessed 09/13/24 09/13/24 08:13 Patient Tobacco Use Status Former Tobacco user 09/13/24 08:13 Tobacco use type Cigarette 09/13/24 08:13 e-Cigarette/Vaping Use Never Used 09/13/24 08:13 PHQ-9: PHQ-9 Score PHQ-9: Total score 1 09/13/24 08:39 Depression Screening Interpretation: Positive Thrive Assessment: Date of Thrive Assessment Date Thrive assessed 09/13/24 09/13/24 08:13 Currently or been in a relationship where the following occur: I choose not to answer Const General: cooperative, comfortable, no acute distress, alert and awake; No confusion Orientation/consciousness: oriented to person, oriented to place, patient oriented x3 and No confusion HENMT Head: Yes normocephalic Ears: external ears normal and TM's normal bilaterally Face and sinus: No sinus tenderness Mouth: Normal oral and palatal mucosa present and tongue normal Teeth and gingiva: dentition normal and gingiva normal Throat: Yes posterior oropharynx normal, Yes tonsils normal and Yes uvula midline Eyes Conjunctivae: conjunctivae normal Sclerae: sclerae normal Pupils: Equal, round and reactive pupils present EOM: EOMs intact bilaterally Direct Ophthalmoscopy: No no photophobia Neck Neck: Yes no lymphadenopathy, No tender and Yes no JVD Thyroid: Thyroid normal Carotids: no bruits Chest Chest palpation & inspection: no tenderness Resp Effort & Inspection: normal respiratory effort, no audible wheezes, not labored and no stridor Auscultation: no crackles, no rales, no rhonchi and no wheezes Cardio Jugular venous distension: no JVD Rate: regular rate, not bradycardic and not tachycardic Rhythm: regular rhythm Bruits: no carotid bruits Peripheral pulses: Peripheral pulses 2+ throughout GI Inspection: Yes normal to inspection, No abdominal wall ecchymosis and No visible herniation Palpation (GI): Soft to palpation, nontender, no guarding, not rigid and No hepatosplenomegaly present Auscultation: normoactive bowel sounds General: Yes no CVA tenderness Back/Spine/Pelvis Back: no CVA tenderness and No back tenderness Cervical Spine: cervical ROM normal Thoracic/Lumbar Spine: thoracic and lumbar spine normal to inspection, straight leg raise negative bilaterally, No thoraco-lumbar ROM limited and No lumbar spinal tenderness Skin Lesions: no lesions Rashes: no rashes Wounds: no wounds Neuro General: oriented to person, oriented to place, patient oriented x3, CN's II-XI intact bilaterally and No confusion Cranial nerves: Yes Equal, round and reactive pupils present and Yes Normal accommodation reflex present Cognition (Neuro): normal cognition Speech: No Abnormal speech present Gait exam (Neuro): Normal gait present Motor exam (neuro): 5/5 motor strength present throughout Extrem Right upper extremity: full ROM; no cyanosis Left upper extremity: full ROM; no cyanosis Right lower extremity: no edema Left lower extremity: no edema Psych Appearance: grossly normal Mental Status: mental status grossly normal Affect: normal affect Attitude: cooperative Thought process: Normal thought process present Office Procedures Flu Questionnaire Does the patient have a severe egg allergy?: No Does the patient have severe life threatening allergies?: No Does the patient have a fever or illness today?: No Has the patient ever had Guillain-[place] Syndrome?: No Has the patient ever had any past reaction to a flu shot?: No Immunizations Fluarix Triv 2546-7635 (PF) 45 mcg (15 mcg x 3)/0.5 mL IM syringe Performing Provider: Aguilar Benavides PA-C [facility] Administered by: Melissa Vázquez RN on 09/13/24 08:41 Dose Route Admin Location Dispensed Lot Number Expiration Date [facility] Warp Tying Machine Knotter 0.5 mL IM Left Deltoid 0.5 mL [id number] 05/01/25 [id number] [facility] Reviews & Information VIS Given Date VIS Provided VIS Publication Date 09/13/24 Single Vaccine 21 Eligibility Eligibility Date Funding Source Not [facility] Eligible 09/13/24 Private Coding Level of Care Code Est Pt Prev Care >65y(96082) Diagnoses Annual physical exam Z00.00 Type 2 diabetes mellitus with hyperglycemia, without long-term current use of insulin E11.65 Diabetes mellitus shelter insulin use: without terminal carman use Diabetes mellitus complication status: with hyperglycemia Mixed hyperlipidemia E78.2 Hyperlipidemia type: mixed hyperlipidemia Hypothyroidism, unspecified type E03.9 Hypothyroidism type: unspecified Achilles tendinitis of left lower extremity M76.62 Laterality: left Chronic fatigue R53.82 Fatigue type: chronic, unspecified Class 2 obesity E66.812 Additional Codes PHQ-9 - 75328 - PHQ-9 Billing: Yes ([id number]) MARIELY-7 Assessment Billing - MARIELY-7 Assessment Tool: MARIELY-7 Assessment 29146 ([id number]) Assessment & Plan Assessment & Plan (1) Annual physical exam: Code(s): Z00.00 - Encounter for general adult medical examination without abnormal findings Category: Medical Plan: As per HPI (2) DMII (diabetes mellitus, type 2): Code(s): E11.9 - Type 2 diabetes mellitus without complications Category: Medical Qualifiers: Diabetes mellitus shelter insulin use: without shelter use Diabetes mellitus complication status: with hyperglycemia Qualified Code(s): E11.65 - Type 2 diabetes mellitus with hyperglycemia Plan: Patient's type 2 diabetes fairly well controlled with lifestyle and dietary modifications. She has not been taking metformin due to fears of side effects. She would like to try GLP 1 to help her with glycemic control and reducing her weight. Goal A1c to be below 6.5 (3) HLD (hyperlipidemia): Code(s): E78.5 - Hyperlipidemia, unspecified Category: Medical Qualifiers: Hyperlipidemia type: mixed hyperlipidemia Qualified Code(s): E78.2 - Mixed hyperlipidemia Plan: Patient's most recent lipid showing borderline high total cholesterol and slightly elevated LDL. She continues on atorvastatin 40 mg. Goal LDL is to be below 100 (4) Hypothyroidism: Code(s): E03.9 - Hypothyroidism, unspecified Category: Medical Qualifiers: Hypothyroidism type: unspecified Qualified Code(s): E03.9 - Hypothyroid ism, unspecified Plan: Patient continues on levothyroxine 137 mcg.. Will recheck TSH to assure normal (5) Achilles tendinitis: Code(s): M76.60 - Achilles tendinitis, unspecified leg Category: Medical Qualifiers: Laterality: left Qualified Code(s): M76.62 - Achilles tendinitis, left leg Plan: Was seen at the walk-in recently and got x-ray of her foot which did show midfoot arthritis and a bone spur at the Achilles tendon insertion site. We did discuss the possibility of doing physical therapy though she would like to hold off on this and see a video game repair technician. (6) Fatigue: Code(s): R53.83 - Other fatigue Category: Medical Qualifiers: Fatigue type: chronic, unspecified Qualified Code(s): R53.82 - Chronic fatigue, unspecified Plan: Ivanna reports having fatigue over last several months. She is interested in ge tting vitamin checked. We did discuss the possibility of checking her for obstructive sleep apnea. (7) Class 2 obesity: Code(s): E66.812 - Obesity, class 2 Category: Medical Plan: Patient does understand her BMI is over 35 and has been trying to work on lifestyle and dietary modifications. Has lost a few lb. She is interested in starting a GLP 1 to help her both with glycemic control and losing weight. Will have patient back in 6 weeks to evaluate the effectiveness of the medication. Plan Goal: A1c to remain below 6.5, LDL to be below 100 Barriers: Adherence to physical activity and healthy eating habits Orders: Orders Lipid Panel Today E78.2 - Mixed hyperlipidemia Complete Blood Count no Diff Today R73.09 - Other abnormal glucose IRON PROFILE Today D50.9 - Iron deficiency anemia, unspecified, R53.82 - Chronic fatigue, unspecified TSH reflex Free T4 Today E03.9 - Hypothyroidism, unspecified Hemoglobin A1c Today R73.09 - Other abnormal glucose Comprehensive [place]. Panel Fast Today R73.09 - Other abnormal glucose Influenza [id number] Immunization Today Z23 - Encounter for immunization Vitamin B12 and Folate Today E53.8 - Deficiency of other specified B group vitamins, R53.82 - Chronic fatigue, unspecified Vitamin D 25-OH Total Today R53.82 - Chronic fatigue, unspecified Referrals Podiatry Referral M76.60 - Achilles tendinitis, unspecified leg Medications: New semaglutide (Ozempic) for 4 weeks 0.25 mg (0.368 mL) subcut QWEEK 4 weeks 3 mL 0RF E11.65 - Type 2 diabetes mellitus with hyperglycemia, E66.812 - Obesity, class 2, E78.2 - Mixed hyperlipidemia
[2024-09-13 08:09] VITALS: BP 120/76; PULSE 69; O2SAT 96; BMI 36.5
== END 2024-09-13 08:37 | disposition home or self-care (01) ==
PROVIDERS: PCP Physician Assistant; Visit Provider Physician Assistant
DX: Z00.00 Encounter for general adult medical examination without abnormal findings (principal); E11.65 Type 2 diabetes mellitus with hyperglycemia; E66.812 Obesity, class 2; Z68.36 Body mass index [BMI] 36.0-36.9, adult; E78.2 Mixed hyperlipidemia; E03.9 Hypothyroidism, unspecified; M76.62 Achilles tendinitis, left leg; R53.82 Chronic fatigue, unspecified

== ENCOUNTER 2024-09-13 07:44 | Outpatient (REF) | payer MEDICARE, SELFPAY ==
[2024-09-13 09:27] LABS: Hematocrit 41.9 % (37.0-47.0); Hemoglobin 14.4 g/dl (12.0-16.0); Mean Corpuscular HGB Conc 34.4 g/dl (31.0-35.0); Mean Corpuscular Hemoglobin 29.6 pg (27.0-33.0); Mean Platelet Volume 9.1 fL (9.4-12.3); Platelet Count 316 X10*3/uL (160-400); Red Blood Count 4.87 X10*6/uL (4.20-5.50); Red Cell Distribution Width 12.1 % (11.0-16.0)
[2024-09-13 09:36] LABS: Estimated Average Glucose 134 mg/dL; Hemoglobin A1c % 6.3 % (<6.0)
[2024-09-13 10:02] LABS: Alanine Aminotransferase 30 U/L (0-31); Albumin Level 4.5 g/dL (3.5-5.0); Alkaline Phosphatase 77 U/L (39-117); Anion Gap 13 (12-20); Aspartate Amino Transferase 25 U/L (5-31); Bilirubin Total 0.8 mg/dL (0.0-1.0); Blood Urea Nitrogen 15 mg/dL (9-16); Calcium 9.2 mg/dL (8.4-10.2); Carbon Dioxide 27 mmol/L (22-29); Chloride 106 mmol/L (96-108); Cholesterol 185 mg/dL (<200); Estimated Glomerular Filt Rate > 60; Glucose Fasting 111 mg/dL (60-99); HDL Cholesterol 46 mg/dL (>40); Iron 93 mcg/dL (30-160); LDL Cholesterol Calculated 104 mg/dL (<100); Percent Iron Saturation 29 % (15-50); Sodium 142 mmol/L (135-145); Total Iron Binding Capacity 317 mcg/dL (228-428); Triglycerides 177 mg/dL (<150); Unsaturated Iron Binding 224 ug/dL
[2024-09-13 10:08] LABS: TSH reflex Free T4 0.62 uIU/mL (0.32-4.0); Vitamin D 25-OH Total 37.1 ng/mL (>30)
[2024-09-13 10:26] LABS: Folate 16.2 ng/mL (> or = 4.0); Vitamin B12 906 pg/mL (200-900)
== END 2024-09-13 07:45 | disposition home or self-care (01) ==
LOC: HO.LAB 07:44
PROVIDERS: PCP Physician Assistant; Visit Provider Physician Assistant
DX: Z00.00 Encounter for general adult medical examination without abnormal findings (principal); Z23 Encounter for immunization; E11.65 Type 2 diabetes mellitus with hyperglycemia; E78.2 Mixed hyperlipidemia; E03.9 Hypothyroidism, unspecified; M76.62 Achilles tendinitis, left leg; R53.82 Chronic fatigue, unspecified; E66.812 Obesity, class 2; D50.9 Iron deficiency anemia, unspecified; E53.8 Deficiency of other specified B group vitamins; Z79.899 Other long term (current) drug therapy
CPT/HCPCS: 36415; 80053; 80061; 82306; 82607; 82746; 83036; 83540; 84443; 85027; 90471; 90656; 96127; 99397

== ENCOUNTER 2024-10-27 08:19 | Outpatient (AMB) | payer MEDICARE, SELFPAY ==
--- NOTE | 2024-10-27 08:45 | MHC.PC.OV ---
Vital Signs 10/27/24 08:46 Height 5 ft Weight 179 lb 8 oz BMI 35.1 BP 110/64 Blood Pressure Location Lt brachial Position Sitting Pulse 91 Pulse Source Pulse Oximeter Pulse Oximetry (%) 96 Oxygen Delivery Method Room Air Intake Visit Reasons: Weight check Intake Note: Patient is here to follow up on Weight check. 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 Out Press Operator Required: No Card Decorator: Not Required per policy Accompanied by: Self / Same As Patient Allergies cephalexin Allergy (Mild, Verified 10/27/24 09:01) Unknown SOME ANTIBIOTICS Allergy (Unknown, Uncoded 10/27/24 09:01) ITCH,THROAT SWELLING imitrex Allergy (Unknown, Uncoded 10/27/24 09:01) Unknown PCN Allergy (Unknown, Uncoded 10/27/24 09:01) rash, oral swelling Medication List - Last Reconciled 10/27/24 by Aguilar Benavides PA-C atorvastatin 40 mg PO DAILY bisacodyl (Dulcolax (bisacodyl)) 20 mg (4 x 5 mg) PO ONCE 1 day clonazepam 1 tab PO DAILY levothyroxine 137 mcg PO DAILY meloxicam 15 mg PO DAILY metformin 500 mg PO DAILY 30 days polyethylene glycol 3350 (Miralax) 238 grams PO ONCE PRN 1 day semaglutide (Ozempic) 0.25 mg (0.368 mL) subcut QWEEK 4 weeks Tobacco use date assessed: 10/27/24 Fall risk assessment: No Falls in past year Last assessed Fall Risk: 10/27/24 Dental Screening Dental Screen Date: 03/09/24 HPI Weight check HPI Details Patient is a 64-year-old female here today for follow-up visit Patient has a past medical history of hypothyroidism, hyperlipidemia, depression, anxiety. .. Concern--> Ivanna reports for the last several months having intolerable fatigue. She reports she is often having take a nap and is lacking energy to do any her daily routine. Thyroid levels have been checked along with CBC which did not show any abnormalities. She has reduced her clonazepam dose to 0.5 mg p.r.n. though previous to that she was on 2 mg a day of clonazepam. Unclear etiology to patient's fatigue at this point though will send for sleep study to evaluate for obstructive sleep apnea she does have risk for this. . HYpothyroid: dd have a thyroiectomy 20 years ago.. Most recent TSH is 0.6.. Continues on levothyroxine 137 mcg .. Type 2 diabetes: Patient's most recent A1c is 6.3 from 6.5. She has started 0.25 mg weekly Ozempic which has offered her good glycemic control and has lost weight. .. Hyperlipidemia: Patient continues on statin therapy atorvastatin 40 with good effect. Most recent lipid panel showing borderline high total cholesterol. Laboratory Tests 03/09/24 09/13/24 08:43 08:50 Fasting Glucose 111 H Hemoglobin A1c % 6.5 H 6.3 H Triglycerides 234 H 177 H Cholesterol 200 H 185 LDL Cholesterol, C alc 105 H 104 H PFS Medical History Arthritis Depression GERD (gastroesophageal reflux disease) Breast mass, right Rotator cuff tear, right Hypothyroidism HLD (hyperlipidemia) Smoker HTN (hypertension) Surgical History History of thyroidectomy History of plastic surgery Family History Father Heart problem Mother Stroke Diabetes Brother Acute CVA (cerebrovascular accident) Social History Housing: Apartment Are you a primary adult live in caregiver to a significant other at home: No Do you presently have visiting nurse or other home services: No Alcohol intake: never Patient Tobacco Use Status: Former Tobacco user Tobacco use type: Cigarette Cigarettes Per Day: 15 e-Cigarette/Vaping Use: Never Used Second Hand Smoke Exposure: Yes service: No Current occupational status: employed 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, 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 needs: No Hearing needs: No Vision needs: No Questionnaire Thrive Questionnaire Date Thrive assessed: 09/13/24 I am a: Patient What is your living situation today?: I have a steady place to live Within the past 12 months, did the food you bought not last and you didn't have the money to get more?: Often true Within the past 12 months, did you worry whether your food would run out before you got money to buy more?: Sometimes True Do you have trouble paying for medicines?: No Do you have trouble getting transportation to medical appointments?: No Do you have trouble paying your heating and electricity bill?: No Do you have trouble taking care of your child, family member or friend?: No Do you have trouble with day-to-day activities such as bathing, preparing meals, shopping, managing finances, etc.?: No Are you currently unemployed and looking for a job?: No Are you interested in more education?: No Please select the resources that you would like help with: None Currently or been in a relationship where the following occur: I choose not to answer THRIVE Score: 2 MARIELY-7 AMB Questionnaire MARIELY-7 Date MARIELY - 7 assessed: 09/13/24 Source: Developed by Drs. Mich Espinoza, Perlita Avina, Aguila Harris and colleagues, with an educational stanley from [employer]. Review of Systems Const Reports fatigue and Denies headache(s) Eyes Denies loss of vision ENT Denies vertigo, Denies dizziness, Denies headache(s) and Denies sore throat Card Denies chest pain, Denies leg edema and Denies lightheadedness Resp Denies cough, Denies hemoptysis and Denies wheezing GI Denies abdominal pain, Denies melena, Denies constipation, Denies diarrhea and Denies vomiting Denies urinary frequency, Denies dysuria and Denies urinary urgency Musc Denies arthralgias, Denies joint swelling, Denies numbness and Denies tingling Neuro Denies Abnormal speech present, Denies behavioral changes, Denies vertigo, Denies dizziness, Denies headache(s), Denies loss of vision, Denies memory loss, Denies numbness and Denies tingling Psych Denies anxiety, Denies behavioral changes, Denies depression, Denies memory loss and Denies panic attacks Endo Reports fatigue Kolby/Lymph Denies easy bleeding and Denies easy bruising Aller/Immun Denies wheezing Physical exam (Primary Care) Vital Signs: Last Vital Signs Pulse 91 10/27/24 08:46 BP 110/64 10/27/24 08:46 Pulse Ox 96 10/27/24 08:46 Oxygen Delivery Method Room Air 10/27/24 08:46 BMI result Body Mass Index 35.1 Tobacco/Smoking Status: Tobacco use Status Tobacco use date assessed 10/27/24 10/27/24 08:50 Patient Tobacco Use Status Former Tobacco user 10/27/24 08:50 Tobacco use type Cigarette 10/27/24 08:50 e-Cigarette/Vaping Use Never Used 10/27/24 08:50 Thrive Assessment: Date of Thrive Assessment Date Thrive assessed 09/13/24 10/27/24 08:50 Currently or been in a relationship where the following occur: I choose not to answer Const General: healthy appearing, no acute distress, alert and awake Nutritional Appearance: well nourished Orientation/consciousness: oriented to person, oriented to place and oriented to time HENMT Ears: TM's normal bilaterally General nose exam: Normal nasal mucous membranes and turbinates present Eyes Conjunctivae: conjunctivae normal Sclerae: sclerae normal Pupils: Equal, round and reactive pupils present Neck Neck: Yes no lymphadenopathy and Yes no JVD Thyroid: Thyroid normal Carotids: no bruits Resp Effort & Inspection: normal respiratory effort and not tachypneic Auscultation: no crackles, no rales, no rhonchi and no wheezes Cardio Rate: regular rate Rhythm: regular rhythm Heart sounds: no murmurs and normal S1 and S2 GI Palpation (GI): Soft to palpation, nontender, no hepatomegaly and no splenomegaly Auscultation: normal bowel sounds Skin General skin exam: no rashes or lesions noted and dry skin Neuro General: oriented to person, oriented to place and oriented to time Cranial nerves: Yes Equal, round and reactive pupils present Speech: No Abnormal speech present Gait exam (Neuro): Normal gait present Motor exam (neuro): no tremor noted Extrem Right upper extremity: full ROM Left upper extremity: full ROM Right lower extremity: full ROM; no edema Left lower extremity: full ROM; no edema Psych Mental Status: mental status grossly normal Speech and movement: Normal speech and movement present Affect: normal affect Attitude: cooperative Thought process: Normal thought process present Coding Level of Care Code Est Pt Level 4 (53549) Diagnoses Type 2 diabetes mellitus with hyperglycemia, without long-term current use of insulin E11.65 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 insulin use: without longterm use Diabetes mellitus complication status: with hyperglycemia Mixed hyperlipidemia E78.2 Hyperlipidemia type: mixed hyperlipidemia Hypothyroidism, unspecified type E03.9 Hypothyroidism type: unspecified Chronic fatigue R53.82 Fatigue type: chronic, unspecified WYATT (obstructive sleep apnea) G47.33 Assessment & Plan Assessment & Plan (1) DMII (diabetes mellitus, type 2): Code(s): E11.9 - Type 2 diabetes mellitus without complications Category: Medical Qualifiers: 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 insulin use: without intermediate school teacher use Diabetes mellitus complication status: with hyperglycemia Qualified Code(s): E11.65 - Type 2 diabetes mellitus with hyperglycemia Plan: Patient's type 2 diabetes fairly well controlled with lifestyle and dietary modifications. She has not been taking metformin due to fears of side effects. She would like to try GLP 1 to help her with glycemic control and reducing her weight. Goal A1c to be below 6.5 (2) HLD (hyperlipidemia): Code(s): E78.5 - Hyperlipidemia, unspecified Category: Medical Qualifiers: Hyperlipidemia type: mixed hyperlipidemia Qualified Code(s): E78.2 - Mixed hyperlipidemia Plan: Patient's most recent lipid showing improved total cholesterol and LDL. She continues on atorvastatin 40 mg. Goal LDL is to be below 100 (3) Hypothyroidism: Code(s): E03.9 - Hypothyroidism, unspecified Category: Medical Qualifiers: Hypothyroidism type: unspecified Qualified Code(s): E03.9 - Hypothyroidism, unspecified Plan: Patient continues on levothyroxine 137 mcg.. Most recent TSH stable. (4) Fatigue: Code(s): R53.83 - Other fatigue Category: Medical Qualifiers: Fatigue type: chronic, unspecified Qualified Code(s): R53.82 - Chronic fatigue, unspecified Plan: Ivanna reports having fatigue over last several months. She does admit to some snoring. Stop Bang questionnaire moderate risk for obstructive sleep apnea.. Now willing to get home sleep study to evaluate for obstructive sleep apnea due to her daytime somnolence. (5) WYATT (obstructive sleep apnea): Code(s): G47.33 - Obstructive sleep apnea (adult) (pediatric) Category: Medical Plan: As above patient has a moderate risk for obstructive sleep apnea. She does admit to snoring and daytime somnolence. Orders: Orders RT home sleep study Today G47.33 - Obstructive sleep apnea (adult) (pediatric) Comprehensive [place]. Panel Fast Today E11.65 - Type 2 diabetes mellitus with hyperglycemia Lipid Panel Today E78.2 - Mixed hyperlipidemia TSH reflex Free T4 Today E03.9 - Hypothyroidism, unspecified Hemoglobin A1c Today E11.65 - Type 2 diabetes mellitus with hyperglycemia Microalbumin, Random (w Creat) Today E11.65 - Type 2 diabetes mellitus with hyperglycemia Complete Blood Count no Diff Today E11.65 - Type 2 diabetes mellitus with hyperglycemia Medications: Refilled semaglutide (Ozempic) for 4 weeks 0.25 mg (0.368 mL) subcut QWEEK 4 weeks 3 mL 3RF E11.65 - Type 2 diabetes mellitus with hyperglycemia, E66.812 - Obesity, class 2, E78.2 - Mixed hyperlipidemia
[2024-10-27 08:46] VITALS: BP 110/64; PULSE 91; O2SAT 96; BMI 35.1
== END 2024-10-27 09:16 | disposition home or self-care (01) ==
PROVIDERS: PCP Physician Assistant; Visit Provider Physician Assistant
DX: E11.65 Type 2 diabetes mellitus with hyperglycemia (principal); E78.2 Mixed hyperlipidemia; E03.9 Hypothyroidism, unspecified; R53.82 Chronic fatigue, unspecified; G47.33 Obstructive sleep apnea (adult) (pediatric)

== ENCOUNTER → 2024-10-27 08:19 | Outpatient (BNVA) | payer MEDICARE, SELFPAY | PROVIDERS: PCP Physician Assistant; Visit Provider Physician Assistant | DX: E11.65 Type 2 diabetes mellitus with hyperglycemia (principal); E78.2 Mixed hyperlipidemia; E03.9 Hypothyroidism, unspecified; R53.82 Chronic fatigue, unspecified; G47.33 Obstructive sleep apnea (adult) (pediatric) | CPT/HCPCS: 99212 ==

== ENCOUNTER → 2024-12-06 08:36 | Outpatient (REF) | payer MEDICARE, SELFPAY | LOC: HO.SL 08:36 | PROVIDERS: PCP Physician Assistant; Visit Provider Physician Assistant | DX: G47.33 Obstructive sleep apnea (adult) (pediatric) (principal) ==

== ENCOUNTER → 2024-12-06 08:47 | Outpatient (BNV) | CPT/HCPCS: 95806 ==

== ENCOUNTER 2024-12-14 08:15 | Outpatient (REF) | payer MEDICARE, SELFPAY ==
[2024-12-21 14:54] LABS: HPV Genotype 16 Negative (Negative); HPV Genotype 18 Negative (Negative); HPV High Risk Negative (Negative)
== END 2024-12-14 08:16 | disposition home or self-care (01) ==
LOC: HO.LNP 08:15
PROVIDERS: PCP Physician Assistant; Visit Provider Advanced Practice Midwife
DX: Z01.419 Encounter for gynecological examination (general) (routine) without abnormal findings (principal); N95.9 Unspecified menopausal and perimenopausal disorder; R21 Rash and other nonspecific skin eruption
CPT/HCPCS: 87626; 88175; 99212; 99387; 99459

== ENCOUNTER 2024-12-14 08:15 | Outpatient (AMB) | payer MEDICARE, SELFPAY ==
--- NOTE | 2024-12-14 08:25 | A.OFFVIS_ITS ---
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 She is doing well with table games floor supervisor concerns: She reports recurring external lumps that become infected, requiring surgery for removal on 2 other occasions she currently has a resolving lump that was infected last month and she is wondering what to do. Currently not sexually active, partner with the ED, she is concerned her libido was much higher and he is unable to talk about. Denies any vaginal dryness or irritation. STI testing offered; she declines. Attempting to eat a healthy diet, not currently taking a multivitamin as she is not sure which to take. Last pap smear; unknown-reports her history was negative. Last mammogram; 2023. Colonoscopy is UTD. Denies any family history of breast, ovarian or colon cancer. [facility] Medical History Arthritis Depression GERD (gastroesophageal reflux disease) Breast mass, right Rotator cuff tear, right Hypothyroidism HLD (hyperlipidemia) Smoker HTN (hypertension) Surgical History History of thyroidectomy History of plastic surgery Family History Father Heart problem Mother Stroke Diabetes Brother Acute CVA (cerebrovascular accident) Social History Housing: Apartment Are you a primary career technical education instructor to a significant other at home: No Do you presently have visiting nurse or other home services: No Alcohol intake: never Patient Tobacco Use Status: Former Tobacco user Tobacco use type: Cigarette Cigarettes Per Day: 15 e-Cigarette/Vaping Use: Never Used Second Hand Smoke Exposure: Yes Patient : No service: No Current occupational status: employed 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, 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 needs: No Hearing needs: No Vision needs: No Female Reproductive History Menstrual Total pregnancies: 1 Full term: 1 Date of Mammogram: 04/19/24 (bi rad 1) Review of Systems Const All systems reviewed & are unremarkable except as noted in HPI and below Reports as per HPI Eyes Reports no additional complaints ENT Reports no additional complaints Card Reports no additional complaints Resp Reports no additional complaints GI Reports as per HPI and Reports no additional complaints Reports as per HPI Musc Reports no additional complaints Skin/Breast Reports as per HPI Neuro Reports no additional complaints Psych Reports no additional complaints Endo Reports no additional complaints Kolby/Lymph Reports no additional complaints Aller/Immun Reports no additional complaints Physical Exam Vital Signs: Last Vital Signs BP 112/72 12/14/24 08:32 BMI result Body Mass Index 35.7 Const General: cooperative, healthy appearing, no acute distress, well developed and alert Orientation/consciousness: patient oriented x3 HEENT Head: Yes normal to inspection Eyes General: appearance normal, both eyes and all related structures Neck Neck: Yes normal visual inspection Thyroid: Thyroid normal Chest Chest palpation & inspection: normal inspection of the chest and other (no puckering, dimpling, peau de orange, retraction, discharge, masses) Breast/axilla inspection: normal inspection of the breasts Breast/axilla palpation: normal palpation of the breasts Resp Effort & Inspection: normal respiratory effort GI Inspection: Yes scar Palpation (GI): Soft to palpation Rectal Exam - Female: deferred Other: Shaven mons pubis with small area of inflammation at the hair follicles, old scarring and comedones noted General: Yes bladder normal to palpation External Female Exam: normal external appearance and normal appearance of the urethra Speculum Exam - Vagina: normal palpation and vagina atrophic Speculum Exam - Cervix: normal palpation and Other cervical findings present (Atrophic changes bled slightly with Pap) Bimanual exam- vagina & uterus: normal bimanual exam, normal palpation, uterine size normal, bladder normal to palpation, normal palpation and non-tender Bimanual Exam- Adnexa, other: no masses Skin General skin exam: no rashes or lesions noted Rashes: no rashes Neuro General: patient oriented x3 Cognition (Neuro): normal cognition Extrem General: Yes normal to inspection Psych Attitude: cooperative Thought process: Normal thought process present Assessment & Plan Assessment & Plan (1) Menopausal and postmenopausal disorder: Code(s): N95.9 - Unspecified menopausal and perimenopausal disorder Category: Medical (2) Cervical cancer screening: Code(s): Z12.4 - Encounter for screening for malignant neoplasm of cervix Category: Medical (3) Encounter for well woman exam with routine gynecological exam: Code(s): Z01.419 - Encounter for gynecological examination (general) (routine) without abnormal findings Category: Medical Plan: Discussed: Current recommendations for pap smears per ASCCP guidelines. Pap smear obtained. Breast awareness, periodic self breast exams and yearly mammogram. Maintain a healthy lifestyle, well balanced diet including Calcium 1,200 mg and Vitamin D 600 IU daily, and routine exercise. Osteoporosis prevention handout provided. Bone density screening ordered. Sexual functioning, self exploration if comfortable with that option. A lternative activity with partner for intimate contact. Contact the office with any postmenopausal bleeding. Patient verbalizes understanding and agrees to the plan of care. She was given opportunity to ask questions and all questions were answered to the best of my ability. RTO in 1 year for annual table games floor supervisor exam. (4) Skin rash: Code(s): R21 - Rash and other nonspecific skin eruption Plan Advised not to shave the mons pubis region to help prevent folliculitis and development of skin abscesses, the purpose of hair in the protection at offers reviewed. Use of antimicrobial soap and a washcloth to help gently exfoliate the area. The patient expressed understanding and agreement with the plan of care. All of her questions and concerns were addressed to the best of my ability. This note is constructed using voice recognition software. While every effort has been made to ensure accuracy, stock replenisher errors may have been included. Orders: Orders XR DEXA axial skeleton Today N95.9 - Unspecified menopausal and perimenopausal disorder HPV High risk Today Z01.419 - Encounter for gynecological examination (general) (routine) without abnormal findings, Z12.4 - Encounter for screening for malignant neoplasm of cervix Pap Smear Today Z01.419 - Encounter for gynecological examination (general) (routine) without abnormal findings Coding Level of Care Code Est Pt Level 2 (91011) New Pt Prev Care >65yr (34568) Diagnoses Menopausal and postmenopausal disorder N95.9 Cervical cancer screening Z12.4 Encounter for well woman exam with routine gynecological exam Z01.419 Skin rash R21
[2024-12-14 08:32] VITALS: BP 112/72; BMI 35.7
--- OUTSIDE RECORDS SUMMARY | 2024-12-14 08:45 | XMS_ITS | Encounter Summary ---
Author Organization [email or web address] Address [address] [place] [address] Care Team Providers Care Revenue Integrity Analyst Name Role Phone Physician, Pcp Unknown Primary Care Provider Asha vailable Reason for Visit * Reason Comments Tendonitis Left foot * Orthopedic (Routine) - Closed Specialty Diagnoses / Procedures Referred By Contac t Referred To Contact Podiatry / Orthopaedic Surgery Diagnoses Achilles tendinitis, unspecified leg Procedures AMB Referral to Podiatry Aguilar Benavides PA Phone: tel: fax: Dario Hadley DPM [address] [address] Phone: tel: fax: Referral ID Status Reason Start Date Expiration Date V isits Requested Visits Authorized [id number] Closed Consult and Treat 09/16/2024 09/16/2025 1 1 Encounter Details Date Type Department Care Team ([facility] st Contact Info) Description 11/29/2024 8:45 AM EST Office Visit Orthopedic Surgery [place] [address] [phone] Dario Hadley DPM [address] [address] Tendonitis, Achilles, left (Primary Dx); Hallux rigidus of left foot Social History Tobacco Use Types Packs/Day Years Used Date Smoking Tobacco: Never Assessed Comments Unknown Sex and Gender Information Value Date Recorded Sex Assigned at Not on file Legal Sex Female 8:16 PM EST Gender Identity Not on file Sexual Orientation Not on file documented as of this encounter Last Filed Vital Signs Vital Sign Reading Time Taken Comments Blood Pressure - - Pulse - - Temperature - - Respiratory Rate - - Oxygen Saturation - - Inhaled Oxygen Concentration - - Weight 84.8 kg (187 lb) 11/29/2024 8:21 AM EST Height 152.4 cm (5') 11/29/2024 8:21 AM EST Body Mass Index 36.52 11/29/2024 8:21 AM EST documented in this encounter Progress Notes * Dario Hadley DPM - 11/29/2024 8:45 AM ESTAssociated Order(s): Injection tendon or ligament Post-Procedure Diagnose(s): Hallux rigidus of left foot Last PCP visit:Referring MD: Aguilar Benavides PA IDENTIFIER: Loan is a 64 y.o. year old female who presents for consultation. CC: Foot pain HPI: Presents complaint of chronic pains been going on for since July states has been a chronic aching throbbing intense pain of her left great toe she has a bunion as well as her left heel she is uncertain exactly which started first does not that her left great toe seems more painful today in herleft heel which affects where she walks states that both make it difficult for her to walk and paindiscomfort is a 7 out of 10 on a visual analog scale denies acute trauma to either area ROS: GENERAL: Pt denies nausea, fever, vomiting, chills, or shortness of breath. Pt in NAD. CARDIOLOGY: pt denies chest pain, palpitations LUNGS: pt denies shortness of breath MUSCULOSKELETAL: See HPI, otherwise no joint pain or swelling, back pain, or muscle pain. SKIN: see HPI, otherwise no lesions, rash or itching NEURO: No persistent headache, weakness or numbness The remainder of the review of systems is noncontributory PAST MEDICAL HISTORY: There is no problem list on file for this patient. SOCIAL HISTORY: Social History Tobacco Use Smoking status: Not on file Smokeless tobacco: Not on file Substance Use Topics Alcohol use: Not on file ACTIVE MEDICATIONS: Outpatient Medications Marked as Taking for the 11/29/24 encounter (Office Visit) with Dario Grullon DPM Medication Sig Dispense Refill atorvastatin (LIPITOR) 40 mg tablet Take 1 tablet (40 mg total) by mouth 1 (one) time each day. clonazePAM (KlonoPIN) 0.5 mg tablet Take 1 tablet (0.5 mg total) by mouth 2 (two) times a day if needed. Max Daily Amount: 1 mg FLUoxetine (PROzac) 10 mg capsule Take 1 capsule (10 mg total) by mouth 1 (one) time each day. levothyroxine (SYNTHROID, LEVOTHROID) 137 mcg tablet Take 1 tablet (137 mcg total) by mouth 1 (one)time each day. meloxicam (MOBIC) 15 mg tablet Take 1 tablet (15 mg total) by mouth 1 (one) time each day. metFORMIN (GLUCOPHAGE) 500 mg tablet Take 1 tablet (500 mg total) by mouth 1 (one) time each day. ALLERGIES: Allergies Allergen Reactions Cephalexin Imitrex [Sumatriptan] Penicillins PHYSICAL EXAM: Visit Vitals Ht 1.524 m (60 ) Wt 84.8 kg (187 lb) BMI 36.52 kg/m?? BSA 1.81 m?? PODIATRIC EXAMINATION: GENERAL: Patient appears well nourished, with NAD. VASCULAR: Dorsalis pedis pulses are 2/4 bilaterally and Posterior tibial pulses are 2/4 bilaterally. Capillary filling time within normal limits the digits. No pallor on elevation or rubor on dependency. No varicosities. Denies rest pain or claudication pain. NEUROLOGICAL: Sharp/dull sensation intact, protective sensation intact 10/10 with 5.07 semmes rosmery bilaterally, vibratory sensation with tuning fork intact to the tibial tuberosity. ORTHOPEDIC: Good muscle strength 5/5 of all flexors and extensors. Dorsi flexion of ankle ,10 degrees, plantar flexion WNL. No muscle atrophy. No muscle deficits pain ovation of the insertion point of the Achilles tendon left as well as mid substance left DERMATOLOGICAL:.No masses or skin lesions noted. Normal skin temperature, normal skin turgor. BIOMECHANICS: Ankle ROM WNL, STJ ROM wnl, MTJ ROM wnl, 1st MPJ ROM sharp pains with diffuse synovitis bunion deformity and crepitation left great toe. IMAGING: IMPRESSION: 1. Tendonitis, Achilles, left 2. Hallux rigidus of left foot PLAN: Pt was seen and examined, history reviewed. Treatment options were discussed and reviewed including stretching exercises demonstrated for patient anti-inflammatory medications steroid injections orthotics and insoles Recommendations given for prefabricated insoles Referral offered physical therapy patient declined Prescription given for anti-inflammatory medication X-rays ordered left foot 3 views Follow-up in 4 to 6 weeks Injection of left great toe joint was performed after consent was obtained. Risks and benefits discussed in detail with patient and include but are not limited to risk of infection risk of recurrence. Injection given of half cc 1% lidocaine half cc of Kenalog 40 Injection tendon or ligament Indications: pain Details: 25 G needle Medications: 0.5 mL lidocaine (PF) 1 %; 20 mg triamcinolone acetonide 40 mg/mL Informed Consent: Site: Foot ligament tendon Dario Hadley DPM documented in this encounter Plan of Treatment Upcoming Encounters Date Type Department Care Team (Late st Contact Info) Description 01/11/2025 8:30 AM EDT Office Visit Orthopedic Surgery - [place] [address] [phone] Dario Hadley DPM [address] [address] documented as of this encounter Procedures Procedure Name Priority Date/Time Associated Diagnosis Comments INJECTION TENDON OR LIGAMENT Routine 11/29/2024 8:45 AM EST Hallux rigidus of left foot documented in this encounter Results * Injection tendon or ligament (11/29/2024 8:45 AM EST) Narrative Dario Hadley DPM - 11/29/2024 8:45 AM EST Dario Hadley DPM ? 11/29/2024 12:57 PM Injection tendon or ligament Indications: pain Details: 25 G needle Medications: 0.5 mL lidocaine (PF) 1 %; 20 mg triamcinolone acetonide 40 mg/mL Informed Consent: ??Site: ??Foot ligament tendon us Dario Hadley DPM IN CLINIC/BEDSIDE ORDERAB LES Final Result documented in this encounter Visit Diagnoses Diagnosis Tendonitis, Achilles, left- Primary Hallux rigidus of left foot documented in this encounter Administered Medications Inactive Administered Medications - up to 3 most recent administrations Medication Order MAR Action Action Date Dose Rate Site lidocaine (PF) (XYLOCAINE-MPF) 1 % injection 0.5 mL 0.5 mL, injection, Once PRN Procedure, Starting on Thu11/29/24 at 0845, For 1 doseIndications:Hallux rigidus of left foot Given 11/29/2024 8:45 AM EST 0.5 mL triamcinolone acetonide (KENALOG-40) 40 mg/mL injection 20 mg 20 mg, intra-articular, Once PRN Procedure, Starting on Thu11/29/24 at 0845, For 1 doseIndications:Hallux rigidus of left foot Given 11/29/2024 8:45 AM EST 20 mg documented in this encounter Historical Medications * This list may reflect changes made after this encounter. metFORMIN (GLUCOPHAGE) 500 mg tablet Take 1 tablet (500 mg total) by mouth 1 (one) time each day. 10/14/2024 meloxicam (MOBIC) 15 mg tablet Take 1 tablet (15 mg total) by mouth 1 (one) time each day. 08/02/2024 levothyroxine (SYNTHROID, LEVOTHROID) 137 mcg tablet Take 1 tablet (137 mcg total) by mouth 1 (one) time each day. 10/14/2024 FLUoxetine (PROzac) 10 mg capsule Take 1 capsule (10 mg total) by mouth 1 (one) time each day. 11/01/2024 clonazePAM (KlonoPIN) 0.5 mg tablet Take 1 tablet (0.5 mg total) by mouth 2 (two) times a day if needed. Max Daily Amount: 1 mg 11/01/2024 atorvastatin (LIPITOR) 40 mg tablet Take 1 tablet (40 mg total) by mouth 1 (one) time each day. 09/13/2024 added in this encounter Care Teams Revenue Integrity Analyst Relationship Specialty Start Date End Date Physician, Pcp Unknown PCP - General 11/14/24 documented as of this encounter
--- OUTSIDE RECORDS SUMMARY | 2024-12-14 08:45 | XMS_ITS | Clinical Summary ---
Author Organization [address] [facility] [address] [facility] Address [address] [place] [address] Phone Care Team Providers Care Nibbler Operator Name Role Phone Physician, Pcp Unknown Primary Care Provider Asha vailable Allergies Active Allergy Reactions Criticality Noted Date Comments Cephalexin 11/29/2024 Sumatriptan 11/29/2024 Penicillins 11/29/2024 Medications atorvastatin (LIPITOR) 40 mg tablet Take 1 tablet (40 mg total) by mouth 1 (one) time each day. 09/13/2024 Active clonazePAM (KlonoPIN) 0.5 mg tablet Take 1 tablet (0.5 mg total) by mouth 2 (two) times a day if needed. Max Daily Amount: 1 mg 11/01/2024 Active FLUoxetine (PROzac) 10 mg capsule Take 1 capsule (10 mg total) by mouth 1 (one) time each day. 11/01/2024 Active levothyroxine (SYNTHROID, LEVOTHROID) 137 mcg tablet Take 1 tablet (137 mcg total) by mouth 1 (one) time each day. 10/14/2024 Active meloxicam (MOBIC) 15 mg tablet Take 1 tablet (15 mg total) by mouth 1 (one) time each day. 08/02/2024 Active metFORMIN (GLUCOPHAGE) 500 mg tablet Take 1 tablet (500 mg total) by mouth 1 (one) time each day. 10/14/2024 Active Hospital, Clinic, or Other Facility Administered Medication Ordered Dose Route Frequency Start Date End Date Status lidocaine (PF) (XYLOCAINE-MPF) 1 % injection 0.5 mLIndications:Hallux rigidus of left foot .5 mL inj Once PRN Procedure 11/29/2024 11/29/2024 Ended triamcinolone acetonide (KENALOG-40) 40 mg/mL injection 20 mgIndications:Hallux rigidus of left foot 20 mg IAtc Once PRN Procedure 11/29/2024 11/29/2024 Ended Encounters Date Type Department Care Team Description 11/29/2024 8:45 AM EST Office Visit Orthopedic [facility] [address] [phone] Dario Hadley DPM Tendonitis, Achilles, left (Primary Dx); Hallux rigidus of left foot from Last 3 Months Surgical History Surgery Date Site/Laterality Comments THYROIDECTOMY COSMETIC SURGERY Medical History Medical History Date Comments Diabetes mellitus (CMS/HCC) Type 2 diabetes mellitus (CMS/HCC) Hypothyroid Hyperlipidemia Anxiety Arthritis Depression GERD (gastroesophageal reflux disease) Right rotator cuff tear Smoker Hypertension Social History Tobacco Use Types Packs/Day Years Used Date Smoking Tobacco: Never Assessed Comments Unknown Sex and Gender Information Value Date Recorded Sex Assigned at Not on file Legal Sex Female 8:16 PM EST Gender Identity Not on file Sexual Orientation Not on file Obstetrics History Last Filed Vital Signs Vital Sign Reading Time Taken Comments Blood Pressure - - Pulse - - Temperature - - Respiratory Rate - - Oxygen Saturation - - Inhaled Oxygen Concentration - - Weight 84.8 kg (187 lb) 11/29/2024 8:21 AM EST Height 152.4 cm (5') 11/29/2024 8:21 AM EST Body Mass Index 36.52 11/29/2024 8:21 AM EST Plan of Treatment Upcoming Encounters Date Type Department Care Team (Late st Contact Info) Description 01/11/2025 8:30 AM EDT Office Visit Orthopedic [facility] [address] [phone] Dario Hadley DPM [address] [address] Health Maintenance Due Date Last Done Comments Breast Cancer Screening 1959 Cervical Cancer Screening: Pap Smear 1980 Zoster Vaccines (1 of 2) 2009 Colorectal Cancer Screening: Colonoscopy 11/26/2023 Depression Screening 11/26/2023 Hepatitis C Screening 11/26/2023 Medicare Annual Wellness Visit 11/26/2023 Osteoporosis Screening (Bone Density Screening) 11/26/2023 Social Influencers of Health Screening 11/26/2023 COVID-19 Vaccine (4 - 2024-25 season) 2024 10/05/2021, 12/31/2020, 12/10/2020 Falls Risk Assessment 2024 DTaP,Tdap,and Td Vaccines (2 - Td or Tdap) 02/10/2029 02/10/2019 RSV Immunization Patients 60+ Years Old (1 - 1-dose 75+ series) 2034 Pneumococcal Vaccine: 50+ Years Completed 09/08/2023, 06/30/2016 Pneumococcal Vaccine: Pediatrics (0 to 5 Years) and At-Risk Patients (6 to 64 Years) Aged Out 09/08/2023, 06/30/2016 No longer eligibl e based on patient's age to complete this topic Influenza Vaccine Completed 09/13/2024, , 11/07/2021, Additional history exists HIB Vaccines Aged Out No longer eligi ble based on patient's age to complete this topic HPV Vaccines Aged Out No longer eligi ble based on patient's age to complete this topic Hepatitis A Vaccines Aged Out No long er eligible based on patient's age to complete this topic Hepatitis B Vaccines Aged Out No long er eligible based on patient's age to complete this topic IPV Vaccines Aged Out No longer eligi ble based on patient's age to complete this topic MMR Vaccines Aged Out No longer eligi ble based on patient's age to complete this topic Meningococcal ACWY Vaccine Aged Out N o longer eligible based on patient's age to complete this topic RSV Immunization Patients Under 20 months Aged Out No longer eligible based on patient's age to complete this topic Varicella Vaccines Aged Out No longer eligible based on patient's age to complete this topic Procedures Procedure Name Priority Date/Time Associated Diagnosis Comments INJECTION TENDON OR LIGAMENT Routine 11/29/2024 8:45 AM EST Hallux rigidus of left foot from Last 3 Months Results * Injection tendon or ligament (11/29/2024 [...] DPM IN CLINIC/BEDSIDE ORDERAB LES Final Result from Last 3 Months Insurance [employer] MEDICARE ADVANTAGE Care Teams Nibbler Operator Relationship Specialty Start Date End Date Physician, Pcp Unknown PCP - General 11/14/24
== END 2024-12-14 10:35 | disposition home or self-care (01) ==
PROVIDERS: PCP Physician Assistant; Visit Provider Advanced Practice Midwife
DX: Z01.419 Encounter for gynecological examination (general) (routine) without abnormal findings (principal); N95.9 Unspecified menopausal and perimenopausal disorder; R21 Rash and other nonspecific skin eruption
CPT/HCPCS: 99212; 99387; 99459

== ENCOUNTER 2025-01-17 09:57 | Outpatient (REF) | payer MEDICARE, SELFPAY ==
--- NOTE | ~2025-01-17 | MM_ITS ---
EXAMINATION: DXA BONE DENSITY AXIAL HISTORY: Estrogen deficiency TECHNIQUE: Total Prestige Dual energy absorptiometry (DEXA) of the lumbar spine, total left hip, and femoral neck was performed. COMPARISON: There are no prior studies for comparison. FINDINGS: The bone mineral density of the lumbar spine is 0.958 with a T-score of -1.9, and a Z-score of -0.9. The bone mineral density of the left total hip is 0.814 with a T-score of -1.5, and a Z-score of -0.8. The bone mineral density of the left femoral neck is 0.711 with a T-score of -2.4, and a Z-score of -1.3. FRACTURE RISK: The FRAX index suggests a risk of major osteoporotic fracture of 6.5%, and of hip fracture 1.2%. MM/XR DEXA axial skeleton IMPRESSION: Based on bone mineral density, and according to World Health Organization (WHO) criteria, the diagnosis is consistent with osteopenia. All bone density values are in grams per centimeter squared (g/cm2). Statistically, 68% of repeat scans fall within 1 SD (+/- 0.010 g/cm2 for AP spine L1-L4) and 1 SD (+/- 0.012 g/cm2 for femur total) FRAX is a trademark of the [employer] Metabolic Bone Disease, a World Health Organization (WHO) Collaborating Center. Electronically signed by: Mich Caldera MD 01/17/2025 02:04 PM EDT
--- OUTSIDE RECORDS SUMMARY | 2025-01-17 11:16 | XMS_ITS | Encounter Summary ---
Author Organization [employer] Address [address] [place] [address] Care Team Providers Care Roaster Helper Name Role Phone Physician, Pcp Unknown Primary Care Provider Asha vailable Reason for Visit * Reason Comments Follow-up Achilles tendonitis Encounter Details Date Type Department Care Team (Late st Contact Info) Description 01/11/2025 8:30 AM EDT Office Visit Orthopedic Surgery - [place] [address] [phone] Dario Hadley DPM [address] [address] Tendinitis of left ankle (Primary Dx); Follow-up exam; Hallux rigidus of left foot; Disorder of ligament of foot, left Social History Tobacco Use Types Packs/Day Years [...] - - Weight 84.8 kg (187 lb) 01/11/2025 8:17 AM EDT Height 152.4 cm (5') 01/11/2025 8:17 AM EDT Body Mass Index 36.52 01/11/2025 8:17 AM EDT documented in this encounter Progress Notes * Dario Hadley DPM - 01/11/2025 8:30 AM EDTAssociated Order(s): Injection tendon or ligament Post-Procedure Diagnose(s): Tendinitis of left ankle; Disorder of ligament of foot, left S Presents complaint of chronic pains been going [...] scale denies acute trauma to either area Patient states that her left great toe pain has resolved or improved significant after steroid shotshe does not know if she needs more pain in the back of her ankle she feels she has irritation backof her heel and around the outside of her foot states a throbbing achy pain is just started in the last 1 to 2 weeks states that she has been wearing different shoe gear ROS: GENERAL: Pt denies nausea, fever, vomiting, [...] Outpatient Medications Marked as Taking for the 01/11/25 encounter (Office Visit) with Dario Grullon DPM Medication Sig Dispense Refill atorvastatin (LIPITOR) 40 mg tablet Take 1 tablet (40 mg total) by mouth 1 (one) time each day. clonazePAM (KlonoPIN) 0.5 mg tablet Take 1 tablet (0.5 mg total) by mouth 2 (two) times a day if needed. FLUoxetine (PROzac) 10 mg capsule Take 1 [...] wnl, MTJ ROM wnl, 1st MPJ ROM resolved synovitis crepitation left great toe palpable dorsal X ptosis mild Pain ovation of the extensor tendons of the left ankle pain patient is cervical interosseous ligament of the sinus tarsi left IMAGING: IMPRESSION: 1. Tendinitis of left ankle 2. Follow-up exam 3. Hallux rigidus of left foot 4. Disorder of ligament of foot, left PLAN: Pt was seen and examined, history reviewed. Treatment options were discussed and reviewed including stretching exercises demonstrated for patient anti-inflammatory medications steroid injections orthotics and insoles Recommendations given for prefabricated insoles Referral offered physical therapy patient declined Prescription given for anti-inflammatory medication Reviewed radiographs with patient did discuss there is some early signs of bony spurring of the first metatarsal head she may benefit from cheilectomy down the road Follow-up in 4 to 6 weeks Injection of cervical interosseous ligament left sinus tarsi was performed after consent was obtained. Risks and benefits discussed in detail with patient and include but are not limited to risk of infection risk of recurrence . Injection given of half cc 1% lidocaine half cc of Kenalog 40 Strapping and padding performed to the foot and ankle Injection tendon or ligament Indications: pain Details: 25 G needle Medications: 0.5 mL lidocaine (PF) 1 %; 20 mg triamcinolone acetonide 40 mg/mL Informed Consent: Site: Foot ligament tendon Dario Hadley DPM documented in this encounter Plan of Treatment Upcoming Encounters Date Type Department Care Team (Late st Contact Info) Description 02/14/2025 8:30 AM EDT Office Visit Orthopedic Surgery - [place] [address] [phone] Dario Hadley DPM [address] [address] documented as of this encounter Procedures Procedure Name Priority Date/Time Associated Diagnosis Comments INJECTION TENDON OR LIGAMENT Routine 01/11/2025 8:30 AM EDT Tendinitis of left ankle Disorder of ligament of foot, left documented in this encounter Results * Injection tendon or ligament (01/11/2025 8:30 AM EDT) Narrative Dario Hadley DPM - 01/11/2025 8:30 AM EDT Dario Hadley DPM ? 01/11/2025 12:54 PM Injection tendon or ligament Indications: pain Details: 25 G needle Medications: 0.5 mL lidocaine (PF) 1 %; 20 mg triamcinolone acetonide 40 mg/mL Informed Consent: ??Site: ??Foot ligament tendon us Dario Hadley DPM IN CLINIC/BEDSIDE ORDERAB LES Final Result * XR Foot 3+ Views Left (01/11/2025 8:23 AM EDT) Anatomical Region Laterality Modality Lower Extremities, Foot Left Computed Radiography Narrative 01/11/2025 12:53 PM EDT Left foot 3 views No fracture. No radiopaque foreign joint spaces normal dorsal spurring of the first metatarsal head lateral view Foot position rectus Normal talus navicular position normal calcaneal inclination normal symes line talus navicular joint to calcaneal cuboid joint Dario Hadley DPM IMG XR PROCEDURES Final R esult documented in this encounter Visit Diagnoses Diagnosis Tendinitis of left ankle- Primary Follow-up exam Unspecified follow-up examination Hallux rigidus of left foot Disorder of ligament of foot, left documented in this encounter Administered Medications Inactive Administered Medications - up to 3 most recent administrations Medication Order MAR Action Action Date Dose Rate Site lidocaine (PF) (XYLOCAINE-MPF) 1 % injection 0.5 mL 0.5 mL, injection, Once PRN Procedure, Starting on Thu01/11/25 at 0830, For 1 doseIndications:Tendinitis of left ankle,Disorder of ligament of foot, left Given 01/11/2025 8:30 AM EDT 0.5 mL triamcinolone acetonide (KENALOG-40) 40 mg/mL injection 20 mg 20 mg, intra-articular, Once PRN Procedure, Starting on Thu01/11/25 at 0830, For 1 doseIndications:Tendinitis of left ankle,Disorder of ligament of foot, left Given 01/11/2025 8:30 AM EDT 20 mg documented in this encounter Care Teams Roaster Helper Relationship Specialty Start Date End Date Physician, Pcp Unknown PCP - General 11/14/24 documented as of this encounter
--- OUTSIDE RECORDS SUMMARY | 2025-01-17 11:16 | XMS_ITS | Clinical Summary ---
Author Organization [address] [facility] Address [address] [place] [address] Phone Care Team Providers Care Lead Cargoman Name Role Phone Physician, Pcp Unknown Primary [...] 2 (two) times a day if needed. 11/01/2024 Active FLUoxetine (PROzac) 10 mg capsule [...] lidocaine (PF) (XYLOCAINE-MPF) 1 % injection 0.5 mLIndications:Tendin itis of left ankle,Disorder of ligament of foot, left .5 mL inj Once PRN Procedure 01/11/2025 01/11/2025 Ended triamcinolone acetonide (KENALOG-40) 40 mg/mL injection 20 mgIndications:Tendin itis of left ankle,Disorder of ligament of foot, left 20 mg IAtc Once PRN Procedure 01/11/2025 01/11/2025 Ended Encounters Date Type Department Care Team Description 01/11/2025 8:30 AM EDT Office Visit Orthopedic Surgery [facility] [address] [phone] Dario Hadley DPM Tendinitis of left ankle (Primary Dx); Follow-up exam; Hallux rigidus of left foot; Disorder of ligament of foot, left 11/29/2024 8:45 AM EST Office Visit Orthopedic Surgery [facility] [address] [phone] Dario Hadley DPM Tendonitis, Achilles, left (Primary [...] Mass Index 36.52 01/11/2025 8:17 AM EDT Plan of Treatment Upcoming Encounters Date Type Department Care Team (Late st Contact Info) Description 02/14/2025 8:30 AM EDT Office Visit Orthopedic Surgery [place] [address] [phone] Dario Hadley DPM [address] [address] Health Maintenance Due Date Last Done Comments Breast Cancer Screening 1959 Cervical Cancer Screening: Pap Smear 1980 Zoster Vaccines (1 of 2) 2009 Colorectal Cancer Screening: Colonoscopy 11/26/2023 Depression Screening 11/26/2023 Hepatitis C Screening 11/26/2023 Medicare Annual Wellness Visit 11/26/2023 Osteoporosis Screening (Bone Density Screening) 11/26/2023 Social Influencers of Health Screening 11/26/2023 COVID-19 Vaccine ( season) 2024 10/05/2021, 12/31/2020, 12/10/2020 Falls Risk [...] patient's age to complete this topic Meningococcal B Vacine Aged Out No lo nger eligible based on patient's age to complete [...] ankle Disorder of ligament of foot, left XR FOOT 3+ VIEWS LEFT Routine 01/11/2025 8:23 AM EDT Follow-up exam INJECTION TENDON OR LIGAMENT Routine 11/29/2024 8:45 AM EST Hallux rigidus of left foot from Last 3 Months Results * Injection tendon or ligament (01/11/2025 8:30 AM EDT) Dario Perry DPM - 01/11/2025 8:30 AM EDT Dario Hadley DPM ? 01/11/2025 12:54 PM Injection tendon or ligament Indications: pain Details: 25 G needle Medications: 0.5 mL lidocaine (PF) 1 %; 20 mg triamcinolone acetonide 40 mg/mL Informed Consent: ??Site: ??Foot ligament tendon Dario Hadley DPM IN CLINIC/BEDSIDE ORDERAB LES [...] DPM IMG XR PROCEDURES Final R esult * Injection tendon or ligament (11/29/2024 8:45 AM EST) Dario Perry DPM - 11/29/2024 8:45 AM EST Dario Hadley DPM ? 11/29/2024 12:57 PM Injection tendon or ligament Indications: pain Details: 25 G needle Medications: 0.5 mL lidocaine (PF) 1 %; 20 mg triamcinolone acetonide 40 mg/mL Informed Consent: ??Site: ??Foot ligament tendon us Dario Hadley DPM IN CLINIC/BEDSIDE ORDERAB LES Final Result from Last 3 Months Insurance [employer] MEDICARE ADVANTAGE Care Teams Lead Cargoman Relationship Specialty Start Date End Date Physician, Pcp Unknown PCP - General 11/14/24
== END 2025-01-17 09:58 | disposition home or self-care (01) ==
LOC: HO.MAMMO 09:57
PROVIDERS: PCP Physician Assistant; Visit Provider Advanced Practice Midwife
DX: Z13.820 Encounter for screening for osteoporosis (principal); Z78.0 Asymptomatic menopausal state
CPT/HCPCS: 77080

== ENCOUNTER → 2025-01-17 10:00 | Outpatient (BNV) | payer MEDICARE, SELFPAY | PROVIDERS: PCP Physician Assistant; Visit Provider Radiology Diagnostic Radiology | DX: E28.39 Other primary ovarian failure (principal) | CPT/HCPCS: 77080 ==

== ENCOUNTER 2025-01-30 08:09 | Outpatient (AMB) | payer MEDICARE, SELFPAY ==
--- NOTE | 2025-01-30 08:39 | AM.OFFWIN_ITS ---
Intake Vital Signs 3 01/30/25 08:42 Height 5 ft Weight 183 lb BMI 35.7 BP 140/88 H Blood Pressure Location Lt brachial Position Sitting Pulse 106 H Pulse Source Pulse Oximeter Temp 98.5 F Temp Source Oral Pulse Oximetry (%) 96 Oxygen Delivery Method Room Air Intake Visit Reasons: EP-lower back pain & cold symptoms Intake Note: Patient here for congestion, cough, blood in stool and lower back pain that started Thursday. Patient Tobacco Use Status: Former Tobacco user Allergies cephalexin Allergy (Mild, Verified 01/30/25 08:42) Unknown SOME ANTIBIOTICS Allergy (Unknown, Uncoded 01/30/25 08:42) ITCH,THROAT SWELLING imitrex Allergy (Unknown, Uncoded 01/30/25 08:42) Unknown PCN Allergy (Unknown, Uncoded 01/30/25 08:42) rash, oral swelling Do you need a note to return to daycare/school/sports/work: No HPI HPI Comments 2 History of Present Illness0 Details 64 y/o female patient who presents to [facility] walk in clinic with c/o Lower Abdominal pain, and Lower back pain since Thursday. Reports One Episode of Blood Stools. Denies Urinary or Bowel Symptoms. Denies vaginal symptoms. Denies Nausea, vomiting, fevers or chills. Pt had Tummy Tuck surgery ~ 10 years ago in [facility]. Recently (~ 1 year ago) had stitches removed that were infected from her abdomen from the Previous Tummy Tuck procedure [facility] [place] Medical History (Updated 01/30/25 @ 09:25 by Brandi Calderón NP) Blood in stool Chronic lower back pain Abdominal pain Menopausal and postmenopausal disorder Arthritis Depression GERD (gastroesophageal reflux disease) Breast mass, right Rotator cuff tear, right Hypothyroidism HLD (hyperlipidemia) Smoker HTN (hypertension) Surgical History History of thyroidectomy History of plastic surgery Family History Father Heart problem Mother Stroke Diabetes Brother Acute CVA (cerebrovascular accident) Social History Housing: Apartment Are you a primary care services manager to a significant other at home: No Do you presently have visiting nurse or other home services: No Alcohol intake: never Patient Tobacco Use Status: Former Tobacco user Tobacco use type: Cigarette Cigarettes Per Day: 15 e-Cigarette/Vaping Use: Never Used Second Hand Smoke Exposure: Yes service: No Current occupational status: employed 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, 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 needs: No Hearing needs: No Vision needs: No Review of Systems Const All systems reviewed & are unremarkable except as noted in HPI and below Physical Exam Vital Signs: Last Vital Signs Temp 98.5 F 01/30/25 08:42 Pulse 106 H 01/30/25 08:42 BP 140/88 H 01/30/25 08:42 Pulse Ox 96 01/30/25 08:42 Oxygen Delivery Method Room Air 01/30/25 08:42 BMI result Body Mass Index 35.7 Const General: no acute distress Nutritional Appearance: obese Orientation/consciousness: patient oriented x3 GI Inspection: Yes Abdominal panniculus present and Yes obesity Palpation (GI): Soft to palpation, not firm, Tenderness to palpation present (GI) in the LLQ and in the LUQ, no guarding, not rigid and No hepatosplenomegaly present Rectal Exam - Female: deferred Abdomen image: 2 1. Well healed scar 2. Small surgical incision scars, well healed. TTP General: Yes no CVA tenderness Back/Spine/Pelvis Back: no CVA tenderness and back tenderness Thoracic/Lumbar Spine: pain with thoraco-lumbar ROM and lumbar spinal tenderness Neuro General: patient oriented x3 Assessment & Plan Assessment & Plan (1) Abdominal pain: Code(s): R10.9 - Unspecified abdominal pain Qualifiers: Abdominal location: lower abdomen, unspecified Qualified Code(s): R 10.30 - Lower abdominal pain, unspecified Plan: Tenderness/Pain could be scar Tissue related. Advised to f/u with General Surgery F/U with PCP. (2) Chronic lower back pain: Code(s): M54.50 - Low back pain, unspecified; G89.29 - Other chronic pain Qualifiers: Back pain laterality: bilateral Sciatica presence: without sciatica Q ualified Code(s): M54.50 - Low back pain, unspecified; G89.29 - Other chronic pain Plan: NSAIDs or Acetaminophen for pain relief. Ice/Hot F/U with PCP if pain worse. (3) Blood in stool: Code(s): K92.1 - Melena Plan: Offered to prescribe Cortisone Cream, Patient declined She has Colonoscopy scheduled in 2 weeks. Coding Level of Care Code Est Pt Level 4 (15694) Diagnoses Lower abdominal pain R10.30 Abdominal location: lower abdomen, unspecified Chronic bilateral low back pain without sciatica M54.50; G89.29 Back pain laterality: bilateral Sciatica presence: without sciatica Blood in stool K92.1 Time Spent (min) 20
[2025-01-30 08:42] VITALS: BP 140/88; PULSE 106; TEMP 36.9; O2SAT 96; BMI 35.7
== END 2025-01-30 09:22 | disposition home or self-care (01) ==
PROVIDERS: PCP Physician Assistant; Visit Provider Nurse Practitioner Family
DX: R10.30 Lower abdominal pain, unspecified (principal); M54.50 Low back pain, unspecified; G89.29 Other chronic pain; K92.1 Melena

== ENCOUNTER → 2025-01-30 08:09 | Outpatient (BNVA) | payer MEDICARE, SELFPAY | PROVIDERS: PCP Physician Assistant; Visit Provider Nurse Practitioner Family | DX: R10.30 Lower abdominal pain, unspecified (principal); M54.50 Low back pain, unspecified; G89.29 Other chronic pain; K92.1 Melena | CPT/HCPCS: 99212 ==

== ENCOUNTER 2025-01-31 09:12 | Outpatient (AMB) | payer MEDICARE, SELFPAY ==
[2025-01-31 09:13] VITALS: BP 138/86; PULSE 105; TEMP 36.3; O2SAT 96; BMI 37.5
--- NOTE | 2025-01-31 09:13 | A.OFFPC_ITS ---
Vital Signs 3 01/31/25 09:13 Height 5 ft Weight 192 lb 2 oz BMI 37.5 BP 138/86 Blood Pressure Location Lt brachial Position Sitting Pulse 105 H Pulse Source Pulse Oximeter Temp 97.3 F Temp Source Temporal Artery Scan Pulse Oximetry (%) 96 Oxygen Delivery Method Room Air Intake Visit Reasons: Back pain Intake Note: Patient presents with a persistent cold since last Thursday and lower back pain for the past two days. Additionally, there is a firm, red spot in the mid- abdomen near the navel. Contour Grinder Required: No Allergies cephalexin Allergy (Mild, Verified 01/31/25 09:59) Unknown SOME ANTIBIOTICS Allergy (Unknown, Uncoded 01/31/25 09:59) ITCH,THROAT SWELLING imitrex Allergy (Unknown, Uncoded 01/31/25 09:59) Unknown PCN Allergy (Unknown, Uncoded 01/31/25 09:59) rash, oral swelling Medication List - Last Reconciled 01/31/25 by Aguilar Benavides PA-C atorvastatin 40 mg PO DAILY bisacodyl (Dulcolax (bisacodyl)) 20 mg (4 x 5 mg) PO ONCE 1 day bisacodyl (Dulcolax (bisacodyl)) 20 mg (4 x 5 mg) PO ONCE 1 day clonazepam 1 tab PO DAILY levothyroxine 137 mcg PO DAILY polyethylene glycol 3350 (Miralax) 238 grams PO ONCE PRN 1 day polyethylene glycol 3350 (Miralax) 238 grams PO ONCE 1 day tirzepatide 2.5 mg (0.5 mL) subcut QWEEK 4 weeks Tobacco use date assessed: 10/27/24 Dental Screening Dental Screen Date: 03/09/24 HPI Back pain 2 HPI0 Details The patient is a 64-year-old female presenting with back pain, primarily initiated a couple of days ago, leading to compromised mobility, particularly noted on the previous day and Thursday. The pain is confined to the back, without any discernible radiation to the legs. She also reports rectal bleeding that commenced on Thursday, characterized by the presence of bright red blood in her stools, speculated to be from hemorrhoids or another local rectal cause, given the absence of darker stools or other alarming symptoms. Has upcoming colonoscopy scheduled. Concurrently, she presents with a localized abdominal wall infection around the umbilicus following a prior tummy tuck procedure. Symptoms include redness, pain, and skin induration likely linked to leftover sutures from the previous surgery. These symptoms emerged around Thursday. [facility] Medical History Blood in stool Chronic lower back pain Abdominal pain Menopausal and postmenopausal disorder Arthritis Depression GERD (gastroesophageal reflux disease) Breast mass, right Rotator cuff tear, right Hypothyroidism HLD (hyperlipidemia) Smoker HTN (hypertension) Surgical History History of thyroidectomy History of plastic surgery Family History Father Heart problem Mother Stroke Diabetes Brother Acute CVA (cerebrovascular accident) Social History Housing: Apartment Are you a primary medicare specialist to a significant other at home: No Do you presently have visiting nurse or other home services: No Alcohol intake: never Patient Tobacco Use Status: Former Tobacco user Tobacco use type: Cigarette Cigarettes Per Day: 15 e-Cigarette/Vaping Use: Never Used Second Hand Smoke Exposure: Yes service: No Current occupational status: employed 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 1. Little interest or pleasure in doing things: not at all 2. Feeling down, depressed, or hopeless: not at all 3. Trouble falling or staying asleep, or sleeping too much: not at all 4. Feeling tired or having little energy: not at all 5. Poor appetite or overeating: not at all 6. Feeling bad about yourself - or that you are a failure or have let yourself or your family down: not at all 7. Trouble concentrating on things, such as reading the newspaper or watching television: not at all 8. Moving or speaking so slowly that other people could have noticed. Or the opposite - being so fidgety or restless that you have been moving around a lot more than usual: not at all 9. Thoughts that you would be better off or of hurting yourself in some way: not at all Total score: 0 Depression Screening Interpretation: Negative Depression Screening Done: Yes 73452 - PHQ-9 Billing: Yes Source: Developed by Drs. Mich Espinoza, Perlita Avina, Aguila Harris and colleagues, with an educational stanley from [employer]. Thrive Questionnaire Date Thrive assessed: 01/31/25 I am a: Patient What is your living situation today?: I have a steady place to live Within the past 12 months, did the food you bought not last and you didn't have the money to get more?: Never true Within the past 12 months, did you worry whether your food would run out before you got money to buy more?: Never true Do you have trouble paying for medicines?: No Do you have trouble getting transportation to medical appointments?: No Do you have trouble paying your heating and electricity bill?: No Do you have trouble taking care of your child, family member or friend?: No Do you have trouble with day-to-day activities such as bathing, preparing meals, shopping, managing finances, etc.?: No Are you currently unemployed and looking for a job?: No Are you interested in more education?: No Please select the resources that you would like help with: None Currently or been in a relationship where the following occur: No concerns reported THRIVE Score: 0 AUDIT C Alcohol Use Questionnaire (AUDIT-C) 1. How often do you have a drink containing alcohol?: Never 3. How often do you have six or more drinks on one occasion?: Never Total Score: 0 MARIELY-7 AMB Questionnaire MARIELY-7 Date MARIELY - 7 assessed: 01/31/25 Feeling nervous, anxious, or on edge: 0 = Not at all Not being able to stop or control worryin = Not at all Worrying too much about different things: 0 = Not at all Trouble relaxin = Not at all Being so restless that it is hard to sit still: 0 = Not at all Becoming easily annoyed or irritable: 0 = Not at all Feeling afraid as if something awful might happen: 0 = Not at all Total MARIELY-7 score (0-4 normal; 5-9 mild; 10-14 moderate; 15-21 severe): 0 Source: Developed by Chris Francoet B.W. Fabrice, Aguila Harris and colleagues, with an educational stanley from [employer]. MARIELY-7 Assessment Billing MARIELY-7 Assessment Tool: MARIELY-7 Assessment 15838 Review of Systems Const Denies headache(s) Eyes Denies loss of vision ENT Denies vertigo, Denies dizziness, Denies headache(s) and Denies sore throat Card Denies chest pain, Denies leg edema and Denies lightheadedness Resp Denies cough, Denies hemoptysis and Denies wheezing GI Denies abdominal pain, Denies melena, Denies constipation, Denies diarrhea and Denies vomiting Denies urinary frequency, Denies dysuria and Denies urinary urgency Musc Denies arthralgias, Denies joint swelling, Denies numbness and Denies tingling Neuro Denies Abnormal speech present, Denies behavioral changes, Denies vertigo, Denies dizziness, Denies headache(s), Denies loss of vision, Denies memory loss, Denies numbness and Denies tingling Psych Denies anxiety, Denies behavioral changes, Denies depression, Denies memory loss and Denies panic attacks Kolby/Lymph Denies easy bleeding and Denies easy bruising Aller/Immun Denies wheezing Physical exam (Primary Care) Vital Signs: Last Vital Signs Temp 97.3 F 01/31/25 09:13 Pulse 105 H 01/31/25 09:13 BP 138/86 01/31/25 09:13 Pulse Ox 96 01/31/25 09:13 Oxygen Delivery Method Room Air 01/31/25 09:13 BMI result Body Mass Index 37.5 Tobacco/Smoking Status: Tobacco use Status Tobacco use date assessed 10/27/24 01/31/25 09:14 Patient Tobacco Use Status Former Tobacco user 01/31/25 09:14 Tobacco use type Cigarette 01/31/25 09:14 e-Cigarette/Vaping Use Never Used 01/31/25 09:14 PHQ-9: PHQ-9 Score PHQ-9: Total score 0 01/31/25 09:16 Depression Screening Interpretation: Negative Thrive Assessment: Date of Thrive Assessment Date Thrive assessed 01/31/25 01/31/25 09:14 Currently or been in a relationship where the following occur: No concerns reported Const General: healthy appearing, no acute distress, alert and awake Nutritional Appearance: well nourished Orientation/consciousness: oriented to person, oriented to place and oriented to time HENMT Ears: TM's normal bilaterally General nose exam: Normal nasal mucous membranes and turbinates present Eyes Conjunctivae: conjunctivae normal Sclerae: sclerae normal Pupils: Equal, round and reactive pupils present Neck Neck: Yes no lymphadenopathy and Yes no JVD Thyroid: Thyroid normal Carotids: no bruits Resp Effort & Inspection: normal respiratory effort and not tachypneic Auscultation: no crackles, no rales, no rhonchi and no wheezes Cardio Rate: regular rate Rhythm: regular rhythm Heart sounds: no murmurs and normal S1 and S2 GI Other: Palpation (GI): Soft to palpation, Tenderness to palpation present (GI) periumbilically, no hepatomegaly and no splenomegaly Auscultation: normal bowel sounds Skin General skin exam: no rashes or lesions noted and dry skin Neuro General: oriented to person, oriented to place and oriented to time Cranial nerves: Yes Equal, round and reactive pupils present Speech: No Abnormal speech present Gait exam (Neuro): Normal gait present Motor exam (neuro): no tremor noted Extrem Right upper extremity: full ROM Left upper extremity: full ROM Right lower extremity: full ROM; no edema Left lower extremity: full ROM; no edema Psych Mental Status: mental status grossly normal Speech and movement: Normal speech and movement present Affect: normal affect Attitude: cooperative Thought process: Normal thought process present Coding Level of Care Code Est Pt Level 4 (61032) Diagnoses Cellulitis, umbilical L03.316 Chronic bilateral low back pain without sciatica M54.50; G89.29 Back pain laterality: bilateral Sciatica presence: without sciatica Additional Codes MARIELY-7 Assessment Billing - MARIELY-7 Assessment Tool: MARIELY-7 Assessment 15171 ([id number]) PHQ-9 - 45858 - PHQ-9 Billing: Yes ([id number]) Assessment & Plan Assessment & Plan (1) Cellulitis, umbilical: Code(s): L03.316 - Cellulitis of umbilicus Category: Medical Plan: Doxycycline is prescribed; imaging ordered to check for underlying abscesses. PLEASE SEE PICTURE SECTION AND PHYSICAL EXAM. Follow-up with surgery advised if no improvement. (2) Chronic lower back pain: Code(s): M54.50 - Low back pain, unspecified; G89.29 - Other chronic pain Category: Medical Qualifiers: Back pain laterality: bilateral Sciatica presence: without sciatica Q ualified Code(s): M54.50 - Low back pain, unspecified; G89.29 - Other chronic pain Plan: Plan to prescribe tizanidine for relief, alongside consideration for an x-ray if symptoms persist or worsen. Orders: Orders 2 US abdomen limited Today L03.316 - Cellulitis of umbilicus Referrals 2 General Surgery Referral L03.316 - Cellulitis of umbilicus Medications: New 2 tirzepatide 5 mg (0.5 mL) subcut QWEEK 4 weeks 2 mL 1RF E11.65 - Type 2 diabetes mellitus with hyperglycemia tizanidine 2 mg PO BID 7 days PRN 14 tabs 0RF muscle spasticity G89.29 - Other chronic pain, M54.50 - Low back pain, unspecified doxycycline monohydrate 100 mg PO BID 10 days 20 caps 0RF L03.316 - Cellulitis of umbilicus
--- OUTSIDE RECORDS SUMMARY | 2025-01-31 10:13 | XMS_ITS | Clinical Summary ---
Author Organization [address] [facility] [address] Address [address] [place] [address] Phone Care Team Providers Care Stone Sandblaster Name Role Phone Physician, Pcp Unknown Primary [...] 8:30 AM EDT Office Visit Orthopedic Surgery [facility] [address] [phone] Dario Hadley DPM Tendinitis of left ankle (Primary Dx); Follow-up exam; Hallux rigidus of left foot; Disorder of ligament of foot, left 11/29/2024 8:45 AM EST Office Visit Orthopedic Surgery [facility] [address] [phone] Dario Hadley DPM Tendonitis, Achilles, left (Primary Dx); Hallux rigidus of left foot from Last 3 Months Surgical History Surgery Date Site/Laterality Comments THYROIDECTOMY COSMETIC SURGERY Medical History Medical History Date Comments Diabetes mellitus (CMS/HCC) Type 2 diabetes mellitus Hypothyroid Hyperlipidemia Anxiety Arthritis Depression GERD (gastroesophageal [...] 8:30 AM EDT Office Visit Orthopedic Surgery [facility] [address] [phone] Dario Hadley DPM [address] [address] Health Maintenance Due Date Last Done Comments [...] Months Insurance [employer] MED[employer]ARE [employer]VANTAGE Care Teams Stone Sandblaster Relationship Specialty Start Date End Date Physician, Pcp Unknown PCP - General 11/14/24
== END 2025-01-31 10:17 | disposition home or self-care (01) ==
LOC: HO.HMCH 09:13
PROVIDERS: PCP Physician Assistant; Visit Provider Physician Assistant
DX: L03.316 Cellulitis of umbilicus (principal); M54.50 Low back pain, unspecified; G89.29 Other chronic pain

== ENCOUNTER 2025-01-31 13:32 | Outpatient (REF) | payer MEDICARE, SELFPAY ==
--- NOTE | ~2025-01-31 | US_ITS ---
EXAMINATION: US ABDOMEN LIMITED CLINICAL INFORMATION: Cellulitis of the umbilicus, evaluate for periumbilical abscess. COMPARISON: None available. TECHNIQUE: Real-time imaging of the abdominal wall. FINDINGS: Patient has undergone prior abdominoplasty 10+ years ago. There are 3 scars present, one midline supraumbilical, one to the left of the umbilicus, and 1 midline infraumbilical. There is an irregular subcutaneous fluid collection communicating with the left periumbilical and infraumbilical scar, located superior and left lateral of the umbilicus. Measurements are difficult to ascertain due to complex shape, however gross estimation is 7.0 x 1.5 x 3.2 cm. There is mildly increased peripheral color Doppler flow, not entirely specific. US/US abdomen limited IMPRESSION: 1. Subcutaneous fluid collection measuring approximately 7.0 x 1.5 x 3.2 cm, spanning between the left periumbilical scar and the infraumbilical scar. Differential includes seroma versus abscess. Electronically signed by: Rodney Truong MD 01/31/2025 02:30 PM EDT
--- OUTSIDE RECORDS SUMMARY | 2025-01-31 16:01 | XMS_ITS | Clinical Summary ---
Author Organization [address] [facility] [address] Address [address] [place] [address] Phone Care Team Providers Care Religious Assistant Name Role Phone Physician, Pcp Unknown Primary [...] 8:30 AM EDT Office Visit Orthopedic Surgery [facility] [address] [phone] Dario Hadley DPM Tendinitis of left ankle (Primary Dx); Follow-up exam; Hallux rigidus of left foot; Disorder of ligament of foot, left 11/29/2024 8:45 AM EST Office Visit Orthopedic Surgery [facility] [address] [phone] Dario Hadley DPM Tendonitis, Achilles, left (Primary [...] 8:30 AM EDT Office Visit Orthopedic Surgery [facility] [address] [phone] Dario Hadley DPM [address] [phone] Health Maintenance Due Date Last Done Comments [...] Months Insurance [employer] MED[employer]ARE ADVANTAGE Care Teams Religious Assistant Relationship Specialty Start Date End Date Physician, Pcp Unknown PCP - General 11/14/24
== END 2025-01-31 13:33 | disposition home or self-care (01) ==
LOC: HO.US 13:32
PROVIDERS: PCP Physician Assistant; Visit Provider Physician Assistant
DX: L03.316 Cellulitis of umbilicus (principal)
CPT/HCPCS: 76705; 96127; 99212

== ENCOUNTER → 2025-01-31 13:35 | Outpatient (BNV) | payer MEDICARE, SELFPAY | PROVIDERS: PCP Physician Assistant; Visit Provider Radiology Diagnostic Radiology | DX: L90.5 Scar conditions and fibrosis of skin (principal) | CPT/HCPCS: 76705 ==

== ENCOUNTER 2025-02-07 08:38 | Outpatient (AMB) | payer MEDICARE, SELFPAY ==
--- NOTE | 2025-02-07 08:48 | MHC.OFFVIS ---
Vital Signs 02/07/25 08:50 Height 5 ft Weight 192 lb 3.889 oz BMI 37.5 BP 137/69 Blood Pressure Location Lt brachial Position Sitting Pulse 96 Pulse Source Pulse Oximeter Pulse Oximetry (%) 97 Oxygen Delivery Method Room Air Intake Visit Reasons: Cellulitis umbilicus Intake Note: Patient referred by pcp Aguilar Benavides PA-C for cellulitis on umbilical area. Patient c/o: hardness and swelling in her umbilical area. HX: wound exploration, wide local excision abdominal wall sinus tract, removal of culprit Prolene stitch Healthcare Consulting Manager Required: No Accompanied by: Self / Same As Patient Allergies cephalexin Allergy (Mild, Verified 02/07/25 08:49) Unknown SOME ANTIBIOTICS Allergy (Unknown, Uncoded 02/07/25 08:49) ITCH,THROAT SWELLING imitrex Allergy (Unknown, Uncoded 02/07/25 08:49) Unknown PCN Allergy (Unknown, Uncoded 02/07/25 08:49) rash, oral swelling HPI Comments Details: Patient presents for evaluation of an umbilical infection/wound. This has been going on for 1 week's time. Patient was placed on antibiotics for this and has had some improvement. She presents here for further evaluation. She has never had this before. Chart was reviewed and patient evaluated [facility] Medical History Blood in stool Chronic lower back pain Abdominal pain Menopausal and postmenopausal disorder Arthritis Depression GERD (gastroesophageal reflux disease) Breast mass, right Rotator cuff tear, right Hypothyroidism HLD (hyperlipidemia) Smoker HTN (hypertension) Surgical History History of thyroidectomy History of plastic surgery Family History Father Heart problem Mother Stroke Diabetes Brother Acute CVA (cerebrovascular accident) Social History Housing: Apartment Are you a primary resident care director to a significant other at home: No Do you presently have visiting nurse or other home services: No Alcohol intake: never Patient Tobacco Use Status: Former Tobacco user Tobacco use type: Cigarette Cigarettes Per Day: 15 e-Cigarette/Vaping Use: Never Used Second Hand Smoke Exposure: Yes service: No Current occupational status: employed 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 Patient has a resolving carbuncle involving the left periumbilical area. No evidence of any fluctuance or abscess at this time. Assessment & Plan Assessment & Plan (1) Carbuncle: Code(s): L02.93 - Carbuncle, unspecified Category: Surgical Plan Current plan of the patient complete her antibiotic course, warm clamp compresses to the area, she will see me in few days tolerated follow up or p.r.n.. Further interventions studies will be directed by the patient was clinical course. All questions answered. Coding Level of Care Code New Pt Level 4 (25752) Diagnoses Carbuncle L02.93
[2025-02-07 08:50] VITALS: BP 137/69; PULSE 96; O2SAT 97; BMI 37.5
--- OUTSIDE RECORDS SUMMARY | 2025-02-07 09:01 | XMS_ITS | Clinical Summary ---
Author Organization 175 [facility] [address] Address [address] [place] [address] Phone Care Team Providers Care Tool Distributor Name Role Phone Physician, Pcp Unknown Primary [...] 8:30 AM EDT Office Visit Orthopedic Surgery [facility] [address] [phone] Dario Hadley DPM Tendinitis of left ankle (Primary Dx); Follow-up exam; Hallux rigidus of left foot; Disorder of ligament of foot, left 11/29/2024 8:45 AM EST Office Visit Orthopedic Surgery [facility] [address] [phone] Dario Hadley DPM Tendonitis, Achilles, left (Primary [...] 8:30 AM EDT Office Visit Orthopedic Surgery [facility] [address] [phone] Dario Hadley DPM [address] [address] Health Maintenance Due Date Last Done Comments [...] Td or Tdap) 02/10/2029 02/10/2019 RSV Immunization Adult Patients (1 - 1-dose 75+ series) 2034 Pneumococcal [...] age to complete this topic Meningococcal B Vaccine Aged Out No l onger eligible based on patient's age to complete [...] Months Insurance [employer] MEDICARE ADVANTAGE Care Teams Tool Distributor Relationship Specialty Start Date End Date Physician, Pcp Unknown PCP - General 11/14/24
== END 2025-02-07 09:22 | disposition home or self-care (01) ==
LOC: HO.HGS 08:38
PROVIDERS: PCP Physician Assistant; Referring Provider Physician Assistant; Visit Provider Surgery
DX: L02.93 Carbuncle, unspecified (principal)
CPT/HCPCS: 99213

== ENCOUNTER → 2025-02-07 08:38 | Outpatient (BNVA) | payer MEDICARE, SELFPAY | PROVIDERS: PCP Physician Assistant; Referring Provider Physician Assistant; Visit Provider Surgery | DX: L02.93 Carbuncle, unspecified (principal) | CPT/HCPCS: 99212 ==

== ENCOUNTER 2025-02-14 08:49 | Outpatient (AMB) | payer MEDICARE, SELFPAY ==
--- NOTE | 2025-02-14 08:52 | A.OFFVIS_ITS ---
Vital Signs 02/14/25 08:57 Height 5 ft Weight 195 lb BMI 38.1 BP 128/65 Blood Pressure Location Rt brachial Position Sitting Pulse 101 H Intake Visit Reasons: s/p Cellulitis umbilicus Intake Note: Patient here for 1wk follow up cellulitis on umbilical area. Reports improvement w/ Doxycycline course. Patient c/o: no concerns. 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 She has had marked improvement of her symptoms. She completed her antibiotic course. Otherwise tolerating a diet and having regular bowel habits. [facility] Medical History Blood in stool Chronic lower back pain Abdominal pain Menopausal and postmenopausal disorder Arthritis Depression GERD (gastroesophageal reflux disease) Breast mass, right Rotator cuff tear, right Hypothyroidism HLD (hyperlipidemia) Smoker HTN (hypertension) Surgical History History of thyroidectomy History of plastic surgery Family History Father Heart problem Mother Stroke Diabetes Brother Acute CVA (cerebrovascular accident) Social History Housing: Apartment Are you a primary resident caregiver to a significant other at home: No Do you presently have visiting nurse or other home services: No Alcohol intake: never Patient Tobacco Use Status: Former Tobacco user Tobacco use type: Cigarette Cigarettes Per Day: 15 e-Cigarette/Vaping Use: Never Used Second Hand Smoke Exposure: Yes service: No Current occupational status: employed 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 Umbilical area demonstrates almost completely resolved cellulitis. Assessment & Plan Assessment & Plan (1) Cellulitis, umbilical: Code(s): L03.316 - Cellulitis of umbilicus Category: Surgical Plan Patient was reassured. She has been given local instructions, and otherwise follow-up p.r.n.. All questions answered. Coding Level of Care Code Est Pt Level 4 (08906) Diagnoses Cellulitis, umbilical L03.316
[2025-02-14 08:57] VITALS: BP 128/65; PULSE 101; BMI 38.1
--- OUTSIDE RECORDS SUMMARY | 2025-02-14 09:13 | XMS_ITS | Clinical Summary ---
Author Organization 175 [facility] Address 175 [place] [address] Phone Care Team Providers Care Chief Of Hospital Medicine Name Role Phone Physician, Pcp Unknown Primary [...] 1 (one) time each day. 10/14/2024 Active Encounters Date Type Department Care Team Description 01/11/2025 8:30 AM EDT Office Visit Orthopedic [place] [address] [phone] Dario Hadley, DPM Tendinitis of left ankle (Primary Dx); Follow-up exam; Hallux rigidus of left foot; Disorder of ligament of foot, left 11/29/2024 8:45 AM EST Office Visit Orthopedic Surgery [facility] [address] [phone] Dario Hadley DPM Tendonitis, Achilles, left (Primary Dx); Hallux rigidus of left foot from Last 3 Months Surgical History Surgery Date Site/Laterality Comments THYROIDECTOMY COSMETIC SURGERY Medical History Medical History Date Comments Diabetes mellitus (CMS/HCC V24, CMS/HCC V28) Type 2 diabetes mellitus (CMS/HCC V24, CMS/HCC V 28) Hypothyroid Hyperlipidemia Anxiety Arthritis Depression GERD (gastroesophageal [...] Care Team (Late st Contact Info) Description 04/03/2025 8:15 AM EDT Office Visit Orthopedic Surgery - [place] [address] [phone] Dario Hadley DPM [address] [address] Health Maintenance Due Date Last Done Comments [...] Months Insurance [employer] MEDICARE ADVANTAGE Care Teams Chief Of Hospital Medicine Relationship Specialty Start Date End Date Physician, Pcp Unknown PCP - General 11/14/24
== END 2025-02-14 09:07 | disposition home or self-care (01) ==
LOC: HO.HGS 08:50
PROVIDERS: PCP Physician Assistant; Visit Provider Surgery
DX: L03.316 Cellulitis of umbilicus (principal)
CPT/HCPCS: 99214

== ENCOUNTER → 2025-02-14 08:49 | Outpatient (BNVA) | payer MEDICARE, SELFPAY | PROVIDERS: PCP Physician Assistant; Visit Provider Surgery | DX: L03.316 Cellulitis of umbilicus (principal) | CPT/HCPCS: 99212 ==

== ENCOUNTER 2025-02-28 08:06 | Outpatient (REF) | payer MEDICARE, SELFPAY ==
--- OUTSIDE RECORDS SUMMARY | 2025-02-28 09:25 | XMS_ITS | Clinical Summary ---
Author Organization 175 [facility] Address [address] [place] [address] Phone Care Team Providers Care Product Planner Name Role Phone Physician, Pcp Unknown Primary [...] AM EDT Office Visit Orthopedic Surgery - [place] [address] [phone] Dario Hadley, DPM Tendinitis of left ankle (Primary Dx); Follow-up exam; Hallux rigidus of left foot; Disorder of ligament of foot, left from Last 3 Months Surgical History Surgery Date Site/Laterality Comments THYROIDECTOMY COSMETIC SURGERY Medical History Medical History Date Comments Diabetes mellitus (CMS/[facility] V24, [facility] V28) Type 2 diabetes mellitus ([facility] V24, [facility] V 28) Hypothyroid Hyperlipidemia Anxiety Arthritis Depression [...] AM EDT Office Visit Orthopedic Surgery - [place] [address] [phone] Dario Hadley, DPM [address] [address] Health Maintenance Due Date Last Done Comments [...] R esult from Last 3 Months Insurance [facility] MEDICARE ADVANTAGE Care Teams Product Planner Relationship Specialty Start Date End Date Physician, Pcp Unknown PCP - General 11/14/24
[2025-02-28 09:45] LABS: Hematocrit 44.1 % (37.0-47.0); Hemoglobin 14.8 g/dl (12.0-16.0); Mean Corpuscular HGB Conc 33.6 g/dl (31.0-35.0); Mean Corpuscular Hemoglobin 29.3 pg (27.0-33.0); Mean Corpuscular Volume 87.3 fL (80.0-98.0); Mean Platelet Volume 9.1 fL (9.4-12.3); Platelet Count 293 X10*3/uL (160-400); Red Blood Count 5.05 X10*6/uL (4.20-5.50); Red Cell Distribution Width 12.9 % (11.0-16.0); White Blood Count 6.4 X10*3/uL (4.8-10.8)
[2025-02-28 10:07] LABS: Estimated Average Glucose 123 mg/dL; Hemoglobin A1C 157.8855 umol/L; Hemoglobin A1c % 5.9 % (<6.0); Total Hemoglobin (HGBA1C) 3814.8964 umol/L
[2025-02-28 10:10] LABS: Creatinine Urine 309.26 mg/dL; Microalbum/Creatinine Ratio Ur 9.3 ug/mg cr (<30)
[2025-02-28 10:31] LABS: Alanine Aminotransferase 28 U/L (0-31); Albumin Level 4.6 g/dL (3.5-5.0); Alkaline Phosphatase 81 U/L (39-117); Anion Gap 11 (12-20); Aspartate Amino Transferase 25 U/L (5-31); Bilirubin Total 0.8 mg/dL (0.0-1.0); Blood Urea Nitrogen 13 mg/dL (9-16); Calcium 9.3 mg/dL (8.4-10.2); Carbon Dioxide 24 mmol/L (22-29); Chloride 108 mmol/L (96-108); Cholesterol 207 mg/dL (<200); Estimated Glomerular Filt Rate > 60; Glucose Fasting 108 mg/dL (60-99); HDL Cholesterol 53 mg/dL (>40); LDL Cholesterol Calculated 127 mg/dL (<100); Sodium 139 mmol/L (135-145); Total Protein 8.1 g/dL (6.5-8.0); Triglycerides 139 mg/dL (<150)
[2025-02-28 10:35] LABS: TSH reflex Free T4 0.84 uIU/mL (0.32-4.0); Vitamin D 25-OH Total 36.4 ng/mL (>30)
[2025-02-28 10:59] LABS: Vitamin B12 846 pg/mL (200-900)
[2025-03-01 13:13] LABS: Lyme Abs Screen <0.90 index
[2025-03-01 21:53] LABS: EBV-NA IgG Index >600.00 U/mL; EBV-VCA IgG Ab >750.00 U/mL; EBV-VCA IgM Ab <36.00 U/mL
== END 2025-02-28 08:07 | disposition home or self-care (01) ==
LOC: HO.LAB 08:06
PROVIDERS: PCP Physician Assistant; Visit Provider Physician Assistant
DX: E11.65 Type 2 diabetes mellitus with hyperglycemia (principal); E78.2 Mixed hyperlipidemia; E03.9 Hypothyroidism, unspecified; R53.82 Chronic fatigue, unspecified; G47.33 Obstructive sleep apnea (adult) (pediatric); E53.8 Deficiency of other specified B group vitamins; Z79.899 Other long term (current) drug therapy
CPT/HCPCS: 36415; 80053; 80061; 82043; 82306; 82570; 82607; 82746; 83036; 84443; 85027; 86617; 86618; 86664; 86665; 96127; 99212

== ENCOUNTER 2025-02-28 08:06 | Outpatient (AMB) | payer MEDICARE, SELFPAY ==
--- NOTE | 2025-02-28 08:15 | A.OFFPC_ITS ---
Vital Signs 02/28/25 08:16 Height 5 ft Weight 187 lb 8 oz BMI 36.6 BP 110/72 Blood Pressure Location Rt brachial Position Sitting Pulse 92 Pulse Source Pulse Oximeter Temp 97.1 F Temp Source Temporal Artery Scan Pulse Oximetry (%) 94 Oxygen Delivery Method Room Air Intake Visit Reasons: Follow-up type 2 diabetes Intake Note: Patient is here to follow up on DM. Produce Runner Required: No Shearing Machine Feeder: Not Required per policy Accompanied by: Self / Same As Patient Allergies cephalexin Allergy (Mild, Verified 02/28/25 08:29) Unknown SOME ANTIBIOTICS Allergy (Unknown, Uncoded 02/28/25 08:29) ITCH,THROAT SWELLING imitrex Allergy (Unknown, Uncoded 02/28/25 08:29) Unknown PCN Allergy (Unknown, Uncoded 02/28/25 08:29) rash, oral swelling Medication List - Last Reconciled 02/28/25 by Aguilar Benavides PA-C atorvastatin 40 mg PO DAILY bisacodyl (Dulcolax (bisacodyl)) 20 mg (4 x 5 mg) PO ONCE 1 day bisacodyl (Dulcolax (bisacodyl)) 20 mg (4 x 5 mg) PO ONCE 1 day clonazepam 1 tab PO DAILY CPAP (CPAP Machine/Device) need for CPAP setting auto PAP 6 to 20 cm of water levothyroxine 137 mcg PO DAILY tirzepatide 5 mg (0.5 mL) subcut QWEEK 4 weeks Tobacco use date assessed: 02/28/25 Fall risk assessment: No Falls in past year Last assessed Fall Risk: 02/28/25 Dental Screening Dental Screen Date: 02/28/25 Did you have a dental visit in the last 12 months?: Yes Did you have a dental problem in the last 6 months where you did not have access to dental care?: No Was dental information given to patient?: Patient has dentist HPI Follow-up type 2 diabetes HPI Details Patient is a 64-year-old female here today for follow-up visit Patient has a past medical history of hypothyroidism, hyperlipidemia, depression, anxiety. .. Concern--> she reports persistent, overwhelming fatigue. Her sleep study identified mild obstructive sleep apnea managed by weight reduction and positional therapy; however, fatigue persists, impairing her functional life. She has struggled with this fatigue for some time despite lifestyle changes and multivitamins. Anxiety and sporadic clonazepam use coincide with her fatigue, but without previously noted energy impacts. She denies any current depression-related fatigue. Thyroid levels have been checked along with CBC which did not show any abnormalities. She has reduced her clonazepam dose to 0.5 mg p.r.n. though previous to that she was on 2 mg a day of clonazepam. Note she did have a sleep study that did show mild obstructive sleep apnea. Will try to set her up with a CPAP machine to control her mild obstructive sleep apnea which may be causing daytime fatigue. . HYpothyroid: dd have a thyroiectomy 20 years ago. Continues on levothyroxine 137 mcg .. Type 2 diabetes: Today's A1c is 6.0 from 6.3.. She has started 5 mg of tirzepatide which has offered her good glycemic control and has lost weight. .. Hyperlipidemia: Patient continues on statin therapy atorvastatin 40 with good effect. Most recent lipid panel showing borderline high total cholesterol. Laboratory Tests 03/09/24 09/13/24 08:43 08:50 Hemoglobin A1c % 6.5 H 6.3 H PFS Medical History Blood in stool Chronic lower back pain Abdominal pain Menopausal and postmenopausal disorder Arthritis Depression GERD (gastroesophageal reflux disease) Breast mass, right Rotator cuff tear, right Hypothyroidism HLD (hyperlipidemia) Smoker HTN (hypertension) Surgical History History of thyroidectomy History of plastic surgery Family History Father Heart problem Mother Stroke Diabetes Brother Acute CVA (cerebrovascular accident) Social History Housing: Apartment Are you a primary career guidance technician to a significant other at home: No Do you presently have visiting nurse or other home services: No Alcohol intake: never Patient Tobacco Use Status: Former Tobacco user Tobacco use type: Cigarette Cigarettes Per Day: 15 e-Cigarette/Vaping Use: Never Used Second Hand Smoke Exposure: Yes service: No Current occupational status: employed 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 1. Little interest or pleasure in doing things: nearly every day 2. Feeling down, depressed, or hopeless: nearly every day 3. Trouble falling or staying asleep, or sleeping too much: nearly every day 4. Feeling tired or having little energy: nearly every day 5. Poor appetite or overeating: nearly every day 6. Feeling bad about yourself - or that you are a failure or have let yourself or your family down: more than half the days 7. Trouble concentrating on things, such as reading the newspaper or watching television: more than half the days 8. Moving or speaking so slowly that other people could have noticed. Or the opposite - being so fidgety or restless that you have been moving around a lot more than usual: more than half the days 9. Thoughts that you would be better off or of hurting yourself in some way: not at all Total score: 21 Depression Screening Interpretation: Positive Depression Screening Follow-up: Existing condition and In treatment Depression Screening Done: Yes 35875 - PHQ-9 Billing: Yes Source: Developed by Drs. Mich Espinoza, Perlita Avina, Aguila Harris and colleagues, with an educational stanley from link bird. Thrive Questionnaire Date Thrive assessed: 01/31/25 I am a: Patient What is your living situation today?: I have a steady place to live Within the past 12 months, did the food you bought not last and you didn't have the money to get more?: Never true Within the past 12 months, did you worry whether your food would run out before you got money to buy more?: Never true Do you have trouble paying for medicines?: No Do you have trouble getting transportation to medical appointments?: No Do you have trouble paying your heating and electricity bill?: No Do you have trouble taking care of your child, family member or friend?: No Do you have trouble with day-to-day activities such as bathing, preparing meals, shopping, managing finances, etc.?: I choose not to answer this question Are you currently unemployed and looking for a job?: Yes Are you interested in more education?: No Please select the resources that you would like help with: None Currently or been in a relationship where the following occur: I choose not to answer THRIVE Score: 0 AUDIT C Alcohol Use Questionnaire (AUDIT-C) 1. How often do you have a drink containing alcohol?: Never Total Score: 0 MARIELY-7 AMB Questionnaire MARIELY-7 Date MARIELY - 7 assessed: 02/28/25 Feeling nervous, anxious, or on edge: 1 = Several days Not being able to stop or control worryin = Not at all Worrying too much about different things: 0 = Not at all Trouble relaxin = Several days Being so restless that it is hard to sit still: 0 = Not at all Becoming easily annoyed or irritable: 0 = Not at all Feeling afraid as if something awful might happen: 0 = Not at all Total MARIELY-7 score (0-4 normal; 5-9 mild; 10-14 moderate; 15-21 severe): 2 Source: Developed by Drs. Mich Espinoza, Perlita Avina, Aguila Harris and colleagues, with an educational stanley from link bird. MARIELY-7 Assessment Billing MARIELY-7 Assessment Tool: MARIELY-7 Assessment 54981 Review of Systems Const Reports fatigue, Denies headache(s), Reports lethargy and Reports malaise Eyes Denies loss of vision ENT Denies vertigo, Denies dizziness, Denies headache(s) and Denies sore throat Card Denies chest pain, Denies leg edema and Denies lightheadedness Resp Denies cough, Denies hemoptysis and Denies wheezing GI Denies abdominal pain, Denies melena, Denies constipation, Denies diarrhea and Denies vomiting Denies urinary frequency, Denies dysuria and Denies urinary urgency Musc Denies arthralgias, Denies joint swelling, Denies numbness and Denies tingling Neuro Denies Abnormal speech present, Denies behavioral changes, Denies vertigo, Denies dizziness, Denies headache(s), Denies loss of vision, Denies memory loss, Denies numbness and Denies tingling Psych Denies anxiety, Denies behavioral changes, Denies depression, Denies memory loss and Denies panic attacks Endo Reports fatigue Kol[place]/Lymph Denies easy bleeding and Denies easy bruising Aller/Immun Denies wheezing Physical exam (Primary Care) Vital Signs: Last Vital Signs Temp 97.1 F 02/28/25 08:16 Pulse 92 02/28/25 08:16 BP 110/72 02/28/25 08:16 Pulse Ox 94 02/28/25 08:16 Oxygen Delivery Method Room Air 02/28/25 08:16 BMI result Body Mass Index 36.6 Tobacco/Smoking Status: Tobacco use Status Tobacco use date assessed 02/28/25 02/28/25 08:23 Patient Tobacco Use Status Former Tobacco user 02/28/25 08:23 Tobacco use type Cigarette 02/28/25 08:23 e-Cigarette/Vaping Use Never Used 02/28/25 08:23 PHQ-9: PHQ-9 Score PHQ-9: Total score 21 02/28/25 08:23 Depression Screening Interpretation: Positive Depression Screening Follow-up: Existing condition and In treatment Thrive Assessment: Date of Thrive Assessment Date Thrive assessed 01/31/25 02/28/25 08:23 Currently or been in a relationship where the following occur: I choose not to answer Const General: healthy appearing, no acute distress, alert and awake Nutritional Appearance: well nourished Orientation/consciousness: oriented to person, oriented to place and oriented to time HENMT Ears: TM's normal bilaterally General nose exam: Normal nasal mucous membranes and turbinates present Eyes Conjunctivae: conjunctivae normal Sclerae: sclerae normal Pupils: Equal, round and reactive pupils present Neck Neck: Yes no lymphadenopathy and Yes no JVD Thyroid: Thyroid normal Carotids: no bruits Resp Effort & Inspection: normal respiratory effort and not tachypneic Auscultation: no crackles, no rales, no rhonchi and no wheezes Cardio Rate: regular rate Rhythm: regular rhythm Heart sounds: no murmurs and normal S1 and S2 GI Palpation (GI): Soft to palpation, nontender, no hepatomegaly and no splenomegal y Auscultation: normal bowel sounds Skin General skin exam: no rashes or lesions noted and dry skin Neuro General: oriented to person, oriented to place and oriented to time Cranial nerves: Yes Equal, round and reactive pupils present Speech: No Abnormal speech present Gait exam (Neuro): Normal gait present Motor exam (neuro): no tremor noted Extrem Right upper extremity: full ROM Left upper extremity: full ROM Right lower extremity: full ROM; no edema Left lower extremity: full ROM; no edema Psych Mental Status: mental status grossly normal Speech and movement: Normal speech and movement present Affect: normal affect Attitude: cooperative Thought process: Normal thought process present Results AMB Hemoglobin A1c AMB Hemoglobin A1c 6.0 % Last Edit by MK Mirza on 02/28/25 08:29 Coding Level of Care Code Est Pt Level 4 (25210) Diagnoses Type 2 diabetes mellitus with hyperglycemia, without long-term current use of in sulin E11.65 Diabetes mellitus superintendent container terminal insulin use: without superintendent container terminal use Diabetes mellitus complication status: with hyperglycemia Mixed hyperlipidemia E78.2 Hyperlipidemia type: mixed hyperlipidemia Hypothyroidism, unspecified type E03.9 Hypothyroidism type: unspecified Chronic fatigue R53.82 Fatigue type: chronic, unspecified WYATT (obstructive sleep apnea) G47.33 Additional Codes PHQ-9 - 00026 - PHQ-9 Billing: Yes ([id number]) MARIELY-7 Assessment Billing - MARIELY-7 Assessment Tool: MARIELY-7 Assessment 97126 ([id number]) Assessment & Plan Assessment & Plan (1) DMII (diabetes mellitus, type 2): Code(s): E11.9 - Type 2 diabetes mellitus without complications Category: Medical Qualifiers: Diabetes mellitus superintendent container terminal insulin use: without superintendent container terminal use Diabetes mellitus complication status: with hyperglycemia Qualified Code(s): E11.65 - Type 2 diabetes mellitus with hyperglycemia Plan: Patient's type 2 diabetes fairly well controlled with lifestyle and dietary modifications. She has not been taking metformin due to fears of side effects. Today's A1c is 6.0 Will continue on 5 mg of trees appetite weekly. Goal A1c to be below 6.5 (2) HLD (hyperlipidemia): Code(s): E78.5 - Hyperlipidemia, unspecified Category: Medical Qualifiers: Hyperlipidemia type: mixed hyperlipidemia Qualified Code(s): E78.2 - Mixed hyperlipidemia Plan: Patient's most recent lipid showing improved total cholesterol and LDL. She continues on atorvastatin 40 mg. Goal LDL is to be below 100 (3) Hypothyroidism: Code(s): E03.9 - Hypothyroidism, unspecified Category: Medical Qualifiers: Hypothyroidism type: unspecified Qualified Code(s): E03.9 - Hypothyroidism, unspecified Plan: Patient continues on levothyroxine 137 mcg.. Most recent TSH stable. (4) Fatigue: Code(s): R53.83 - Other fatigue Category: Medical Qualifiers: Fatigue type: chronic, unspecified Qualified Code(s): R53.82 - Chronic fatigue, unspecified Plan: Broad investigation into causal factors includes sleep apnea, vitamin deficiency checks, and current medication reviews to alleviate fatigue. (5) WYATT (obstructive sleep apnea): Code(s): G47.33 - Obstructive sleep apnea (adult) (pediatric) Category: Medical Plan: Prescription for a CPAP machine aims to manage fatigue related to sleep apnea, evaluating its efficacy in upcoming visits. Orders: Orders AMB Hemoglobin A1c Today E11.65 - Type 2 diabetes mellitus with hyperglycemia Vitamin D 25-OH Total Today R53.82 - Chronic fatigue, unspecified [place] Virus Profile Today R53.82 - Chronic fatigue, unspecified Vitamin B12 and Folate Today E53.8 - Deficiency of other specified B group vitamins, R53.82 - Chronic fatigue, unspecified Lyme IgG/IgM w/reflex to WB Today R53.82 - Chronic fatigue, unspecified Medications: New CPAP (CPAP Machine/Device) need for CPAP setting auto PAP 6 to 20 cm of water 1 ea 0RF G47.33 - Obstructive sleep apnea (adult) (pediatric) Discontinued tizanidine Discontinued Reason: Doctor's Order 2 mg PO BID PRN 14 tabs 0RF muscle spasticity 7 days G89.29 - Other chronic pain, M54.50 - Low back pain, unspecified Patient Instructions: Goal: A1c to remain below 7.0, blood pressure to remain below 140/90 Barriers: Chronic fatigue, adherence to physical activity and healthy eating habits
[2025-02-28 08:16] VITALS: BP 110/72; PULSE 92; TEMP 36.2; O2SAT 94; BMI 36.6
--- OUTSIDE RECORDS SUMMARY | 2025-02-28 08:16 | XMS_ITS | Clinical Summary ---
Author Organization 175 [facility] Address 175 [place] [address] Phone Care Team Providers Care Cake Mixer Name Role Phone Physician, Pcp Unknown Primary [...] AM EDT Office Visit Orthopedic Surgery - [place] [address] [phone] Dario Hadley, DPM Tendinitis of left ankle (Primary Dx); Follow-up exam; Hallux rigidus of left foot; Disorder of ligament of foot, left from Last 3 Months Surgical History Surgery Date Site/Laterality Comments THYROIDECTOMY COSMETIC SURGERY Medical History Medical History Date Comments Diabetes mellitus (CMS/[facility] V24, [facility] V28) Type 2 diabetes mellitus ([facility] V24, [facility] V 28) Hypothyroid Hyperlipidemia Anxiety Arthritis Depression [...] AM EDT Office Visit Orthopedic Surgery - [place] [address] [phone] Dario Hadley, DPM [address] [address] Health Maintenance Due Date Last Done Comments [...] Routine 01/11/2025 8:23 AM EDT Follow-up exam from Last 3 Months Results * Injection [...] DPM IMG XR PROCEDURES Final R esult from Last 3 Months Insurance [facility] MEDICARE ADVANTAGE Care Teams Cake Mixer Relationship Specialty Start Date End Date Physician, Pcp Unknown PCP - General 11/14/24
== END 2025-02-28 08:48 | disposition home or self-care (01) ==
LOC: HO.HMCH 08:07
PROVIDERS: PCP Physician Assistant; Visit Provider Physician Assistant
DX: E11.65 Type 2 diabetes mellitus with hyperglycemia (principal); E78.2 Mixed hyperlipidemia; E03.9 Hypothyroidism, unspecified; R53.82 Chronic fatigue, unspecified; G47.33 Obstructive sleep apnea (adult) (pediatric)

== ENCOUNTER 2025-03-21 09:20 | Day surgery (SDC) | payer MEDICARE, SELFPAY ==
[2024-11-22 14:31] VITALS: BMI 34.4
--- NOTE | 2024-11-23 08:58 | P.CONAN_ITS ---
HPI - Anesthesia Eval Consult details Narrative: 64yo F for Colonoscopy PMF Active Problems Active Problems: All Active Problems WYATT (obstructive sleep apnea) (Acute) Class 2 obesity (Acute) Fatigue (Acute) Achilles tendinitis (Acute) DMII (diabetes mellitus, type 2) (Acute) Ankle pain, left (Acute) Cervical cancer screening (Acute) MDD (major depressive disorder), recurrent episode, mild (Acute) Bilateral hand pain (Acute) Bilateral foot pain (Acute) Seroma due to trauma (Acute) Abdominal wall mass (Acute) Former smoker (Acute) Abscess, umbilical (Acute) Impaired glucose metabolism (Acute) S/P right rotator cuff repair (Acute) Left shoulder pain (Acute) Cervical spine pain (Acute) Fibromyalgia (Acute) Annual physical exam (Acute) Colon cancer screening (Acute) Screening for diabetes mellitus (DM) (Acute) Obese (Acute) HLD (hyperlipidemia) (Acute) Hypothyroidism (Acute) Past Medical History Medical History Arthritis Depression GERD (gastroesophageal reflux disease) Breast mass, right Rotator cuff tear, right Hypothyroidism HLD (hyperlipidemia) Smoker HTN (hypertension) Family History Family History Father Heart problem Mother Stroke Diabetes Brother Acute CVA (cerebrovascular accident) Family history of problems with anesthesia: No Surgical History Surgical History History of thyroidectomy History of plastic surgery History of Problems with Anesthesia: No Social History Social History Housing: Apartment Are you a primary healthcare or medical to a significant other at home: No Do you presently have visiting nurse or other home services: No Alcohol intake: never Patient Tobacco Use Status: Former Tobacco user Tobacco use type: Cigarette Cigarettes Per Day: 15 e-Cigarette/Vaping Use: Never Used Second Hand Smoke Exposure: Yes service: No Current occupational status: employed 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, 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 needs: No Hearing needs: No Vision needs: No Meds Allergies Allergy/AdvReac Type Severity Reaction Status Date / Time cephalexin Allergy Mild Unknown Verified 10/27/24 09:01 SOME ANTIBIOTICS Allergy Unknown ITCH,THROAT Uncoded 10/27/24 09:01 SWELLING imitrex Allergy Unknown Unknown Uncoded 10/27/24 09:01 PCN Allergy Unknown rash, oral Uncoded 10/27/24 09:01 swelling Home Medications ?Medication ?Instructions ?Recorded ?Confirmed ?Last Taken ?Type clonazepam 0.5 mg tablet 1 tab PO DAILY 08/27/22 10/27/24 08/26/22 History Exam Height,Weight and Vital Signs: Height 5 ft Weight 79.832 kg Assessment and Plan Assessment Anesthesia Assessment: Chart Reviewed Final Anesthetic Review Family History of Problems with Anesthesia: No History of Problems with Anesthesia: No
[2025-03-21 09:26] VITALS: BMI 37.1
[2025-03-21] MEDS: Lactated Ringers 1,000 ML 100 ML IVCONT (09:37)
[2025-03-21 09:51] LABS: Glucose, Whole Blood 95 mg/dL (60-115)
[2025-03-21 09:52] VITALS: BP 125/83; PULSE 91; RESP 18; TEMP 36.7; O2SAT 95
--- NOTE | 2025-03-21 10:10 | MHC.SHP ---
Pre-Procedural Eval Section A - 24 Hr Update-Section A only Date of Service: 03/21/25 Section B - Complete if H&P > 30 days Chief Complaint: screening Relevant Family History (Specify if Yes): No Relevant Social History: None Present Medications: see Short Stay Collaborative assessment Medical History: Significant History (Blood in stool Chronic lower back pain Abdominal pain Menopausal and postmenopausal disorder Arthritis Depression GERD (gastroesophageal reflux disease) Breast mass, right Rotator cuff tear, right Hypothyroidism HLD (hyperlipidemia) Smoker HTN (hypertension)) History of Previous Operations: Relevant previous surgery/procedure and date(s) (History of thyroidectomy History of plastic surgery) Allergies: Allergies Allergy/AdvReac Type Severity Reaction Status Date / Time cephalexin Allergy Mild Unknown Verified 03/21/25 09:33 SOME ANTIBIOTICS Allergy Unknown ITCH,THROAT Uncoded 03/21/25 09:33 SWELLING imitrex Allergy Unknown Unknown Uncoded 03/21/25 09:33 PCN Allergy Unknown rash, oral Uncoded 03/21/25 09:33 swelling Review of Systems Sugical H&P ROS: Negative: Constitution, Cardiovascular, Respiratory, Neurological, Psychiatric, Hem-Onc, Allergic/Immunologic, Gastrointestinal, Genitourinary, Musculoskeletal, Integumentary, Endocrine and Eyes/Ears/Nose/Throat Exam Surgical H&P Exam: Normal: HEENT, Normal: Heart, Normal: Lungs, Normal: Extremities, Normal: Abdomen, Normal: Skin and Normal: Neurological Plan Diagnosis/Plan: Unchanged I have reviewed the history and physical and performed a pertinent physical examination on my patient. No changes have occurred unless specified. Time Spent With Patient Time: Total time managing care of this patient today ____ minutes.
--- NOTE | 2025-03-21 10:15 | P.CONAN_ITS ---
Documented by User: Lea Milan NP 03/20/25 13:05 HPI - Anesthesia Eval Consult details Narrative: 64yo F for Colonoscopy Anesthesia Pre-Procedure Meds Is the patient on any of the following meds?: GLP1/DPP4 PMFSH Active Problems Active Problems: All Active Problems Carbuncle (Acute) Cellulitis, umbilical (Acute) Blood in stool (Acute) Chronic lower back pain (Acute) Abdominal pain (Acute) Encounter for well woman exam with routine gynecological exam (Acute) Menopausal and postmenopausal disorder (Acute) WYATT (obstructive sleep apnea) (Acute) Class 2 obesity (Acute) Fatigue (Acute) Achilles tendinitis (Acute) DMII (diabetes mellitus, type 2) (Acute) Ankle pain, left (Acute) Cervical cancer screening (Acute) MDD (major depressive disorder), recurrent episode, mild (Acute) Bilateral hand pain (Acute) Bilateral foot pain (Acute) Seroma due to trauma (Acute) Abdominal wall mass (Acute) Former smoker (Acute) Abscess, umbilical (Acute) Impaired glucose metabolism (Acute) S/P right rotator cuff repair (Acute) Left shoulder pain (Acute) Cervical spine pain (Acute) Fibromyalgia (Acute) Annual physical exam (Acute) Colon cancer screening (Acute) Screening for diabetes mellitus (DM) (Acute) Obese (Acute) HLD (hyperlipidemia) (Acute) Hypothyroidism (Acute) Past Medical History Medical History Blood in stool Chronic lower back pain Abdominal pain Menopausal and postmenopausal disorder Arthritis Depression GERD (gastroesophageal reflux disease) Breast mass, right Rotator cuff tear, right Hypothyroidism HLD (hyperlipidemia) Smoker HTN (hypertension) Family History Family History Father Heart problem Mother Stroke Diabetes Brother Acute CVA (cerebrovascular accident) Family history of problems with anesthesia: No Surgical History Surgical History History of thyroidectomy History of plastic surgery History of Problems with Anesthesia: No Social History Social History Housing: Apartment Are you a primary healthcare sales representative to a significant other at home: No Do you presently have visiting nurse or other home services: No Alcohol intake: never Patient Tobacco Use Status: Former Tobacco user Tobacco use type: Cigarette Cigarettes Per Day: 15 e-Cigarette/Vaping Use: Never Used Second Hand Smoke Exposure: Yes Have you been hit, kicked, punched, or otherwise hurt by someone within the past year? 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 needs: No Hearing needs: No Vision needs: Yes (Reading glasses) Meds Allergies Allergy/AdvReac Type Severity Reaction Status Date / Time cephalexin Allergy Mild Unknown Verified 03/21/25 09:33 SOME ANTIBIOTICS Allergy Unknown ITCH,THROAT Uncoded 03/21/25 09:33 SWELLING imitrex Allergy Unknown Unknown Uncoded 03/21/25 09:33 PCN Allergy Unknown rash, oral Uncoded 03/21/25 09:33 swelling Home Medications ?Medication ?Instructions ?Recorded ?Confirmed ?Last Taken ?Type clonazepam 0.5 mg tablet 1 tab PO DAILY 08/27/22 03/21/25 08/26/22 History Exam Height,Weight and Vital Signs: Height 5 ft Weight 79.832 kg Assessment and Plan Assessment Anesthesia Assessment: Chart Reviewed Final Anesthetic Review Family History of Problems with Anesthesia: No History of Problems with Anesthesia: No Documented by User: Bárbara Sagastume DO 03/21/25 10:35 HPI - Anesthesia Eval Anesthesia Pre-Procedure Meds Is the patient on any of the following meds?: GLP1/DPP4 PMFSH Past Medical History Medical History Blood in stool Chronic lower back pain Abdominal pain Menopausal and postmenopausal disorder Arthritis Depression GERD (gastroesophageal reflux disease) Breast mass, right Rotator cuff tear, right Hypothyroidism HLD (hyperlipidemia) Smoker HTN (hypertension) Family History Family History Father Heart problem Mother Stroke Diabetes Brother Acute CVA (cerebrovascular accident) Family history of problems with anesthesia: No Surgical History Surgical History History of thyroidectomy History of plastic surgery History of Problems with Anesthesia: No Social History Social History Housing: Apartment Are you a primary healthcare sales representative to a significant other at home: No Do you presently have visiting nurse or other home services: No Alcohol intake: never Patient Tobacco Use Status: Former Tobacco user Tobacco use type: Cigarette Cigarettes Per Day: 15 e-Cigarette/Vaping Use: Never Used Second Hand Smoke Exposure: Yes Have you been hit, kicked, punched, or otherwise hurt by someone within the past year? 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 needs: No Hearing needs: No Vision needs: Yes (Reading glasses) Meds Allergies Allergy/AdvReac Type Severity Reaction Status Date / Time cephalexin Allergy Mild Unknown Verified 03/21/25 09:33 SOME ANTIBIOTICS Allergy Unknown ITCH,THROAT Uncoded 03/21/25 09:33 SWELLING imitrex Allergy Unknown Unknown Uncoded 03/21/25 09:33 PCN Allergy Unknown rash, oral Uncoded 03/21/25 09:33 swelling Home Medications ?Medication ?Instructions ?Recorded ?Confirmed ?Last Taken ?Type clonazepam 0.5 mg tablet 1 tab PO DAILY 08/27/22 03/21/25 08/26/22 History Exam Exam Date and Time: 03/21/25 1015 Height,Weight and Vital Signs: Height 5 ft Weight 79.832 kg Vital Signs Temperature 98.0 F 03/21/25 09:52 Pulse Rate 91 03/21/25 09:52 Respiratory Rate 18 03/21/25 09:52 Blood Pressure 125/83 03/21/25 09:52 Pulse Oximetry 95 03/21/25 09:52 Oxygen Delivery Method Room Air 03/21/25 09:52 Temperature 98.0 F 03/21/25 09:52 Pulse Rate 91 03/21/25 09:52 Respiratory Rate 18 03/21/25 09:52 Blood Pressure 125/83 03/21/25 09:52 Pulse Oximetry 95 03/21/25 09:52 Oxygen Delivery Method Room Air 03/21/25 09:52 Airway Mallampati Class: II TM Dist: <=3cm Neck ROM: Full Loose/Missing/Broken Teeth: No (patient denies any loose or broken teeth) Heart: S1S2 Lungs: CTAB Assessment and Plan Assessment Anesthesia Assessment: Anesthesia Plan Discussed and Chart Reviewed Final Anesthetic Review Family History of Problems with Anesthesia: No History of Problems with Anesthesia: No NPO: Yes ASA Class: II Final Preanesthetic Review: No Changes in Pt Med Stat, Meds/Allgs Chart Reviewed, Consent Obtained/Reviewed and Anes Risks/Benef Reviewed Patient Risk: Low Procedure Risk: Low Anesthetic Plan Anesthetic Plan: MAC: and Agree w/ Assess. and Plan Disposition: Standard PACU
--- NOTE | 2025-03-21 10:50 | P.OPN-COLO_ITS ---
Colonoscopy Operative Note Operative Note Date of Service: 03/21/25 Narrative: Operative Information Procedure Description: Colonoscopy Indication: screening Anesthesia: MAC COLONOSCOPY Instrument: Olympus variable stiffness pediatric scope 190L Colonoscopy Monitoring: Vital signs and clinical assessment, continuous EKG monitoring, Pulse oximetry, Carbon Dioxide monitoring and blood pressure monitoring were done throughout the procedure. Colon withdrawal time was 16 minutes. Procedure: The patient was placed in the left lateral decubitis position and pre-procedure medications were administered. After a digital rectal examination of the ano-rectum, the video colonoscope was inserted into the rectum and advanced through the colon to the cecum/TI. The colonoscope was slowly withdrawn in a retrograde panoramic fashion and the colon mucosa was carefully examined including a retroflexed view of the rectum. Findings and interventions are described below. Procedure Difficulty: difficult, pressure applied due to looping using 2 people left and right Findings: Terminal Ileum-normal Cecum:normal Ascending Colon: 5-7 mm sessile polyp removed with cold forceps Transverse Colon -normal Descending Colon: mild diverticulosis Sigmoid Colon: mild to moderate diverticulosis, x 3 sessile polyps 9-10 mm removed with cold snare Rectum: Retroflexion with small internal hemorrhoids seen, grade I, x 4 sessile polyps 8-10 mm removed with cold snare Anorectum - normal Intervention: cold snare, cold forceps Colon preparation: [place] Bowel Preparation Scale Right colon; 1-2 Transverse colon: 2 Left colon; 1-2 (0 = Unprepared colon segment with mucosa not seen due to solid stool that cannot be cleared. 1 = Portion of mucosa of the colon segment seen, but other areas of the colon segment not well seen due to staining, residual stool and/or opaque liquid. 2 = Minor amount of residual staining, small fragments of stool and/or opaque liquid, but mucosa of colon segment seen well. 3 = Entire mucosa of colon segment seen well with no residual staining, small fragments of stool or opaque liquid) Impression and Post Procedure Diagnosis: diverticulosis colon polyps internal hemorrhoids Plan: High fiber diet leaflet Avoid straining at stool, epsom salts and sitz bath, anusol supps or cream Repeat Colonoscopy in 1 year due to fair prep or earlier if clinically indicated --next time use colowrap Above findings were reviewed with the patient and relevant handouts were provided if indicated.
[2025-03-21 10:53] VITALS: BP 117/64; PULSE 85; RESP 16; TEMP 36.7; O2SAT 95
[2025-03-21 11:08] VITALS: BP 128/80; PULSE 83; RESP 16; TEMP 36.7; O2SAT 97
== END 2025-03-21 11:45 | disposition home or self-care (01) ==
PROVIDERS: PCP Physician Assistant; Visit Provider Internal Medicine Gastroenterology
PROC: 0DJD8ZZ Inspection of Lower Intestinal Tract, Via Natural or Artificial Opening Endoscopic (ICD-10-PCS; CPT 45378; principal; 2025-03-21 11:50)
DX: Z12.11 Encounter for screening for malignant neoplasm of colon (principal); K63.5 Polyp of colon; K56.2 Volvulus; K57.30 Diverticulosis of large intestine without perforation or abscess without bleeding; K64.0 First degree hemorrhoids; E11.9 Type 2 diabetes mellitus without complications; I10 Essential (primary) hypertension; E78.5 Hyperlipidemia, unspecified; E03.9 Hypothyroidism, unspecified; K21.9 Gastro-esophageal reflux disease without esophagitis; G47.33 Obstructive sleep apnea (adult) (pediatric); Z99.89 Dependence on other enabling machines and devices; Z87.891 Personal history of nicotine dependence; Z79.84 Long term (current) use of oral hypoglycemic drugs; Z79.02 Long term (current) use of antithrombotics/antiplatelets; Z79.899 Other long term (current) drug therapy
CPT/HCPCS: 45385; 45380; 82947; 88305; J2003; J2704

== ENCOUNTER → 2025-03-21 09:20 | Outpatient (BNV) | payer MEDICARE, SELFPAY | PROVIDERS: PCP Physician Assistant; Visit Provider Internal Medicine Gastroenterology | DX: Z12.11 Encounter for screening for malignant neoplasm of colon (principal); K63.5 Polyp of colon; K57.90 Diverticulosis of intestine, part unspecified, without perforation or abscess without bleeding; K64.8 Other hemorrhoids | CPT/HCPCS: 45380; 45385 ==

== ENCOUNTER 2025-05-31 07:35 | Outpatient (AMB) | payer MEDICARE, SELFPAY ==
--- NOTE | 2025-05-31 08:27 | MHC.PC.OV ---
Vital Signs 05/31/25 08:28 Height 5 ft Weight 183 lb 6 oz BMI 35.8 BP 134/76 Blood Pressure Location Lt brachial Position Sitting Pulse 76 Pulse Source Pulse Oximeter Temp 97.1 F Temp Source Temporal Artery Scan Pulse Oximetry (%) 97 Oxygen Delivery Method Room Air Intake Visit Reasons: f/u DMII -weight check Intake Note: Patient is here to follow up on DM and Weight check. 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: No Administrative Liaison: Not Required per policy Accompanied by: Self / Same As Patient Allergies cephalexin Allergy (Mild, Verified 05/31/25 08:39) Unknown SOME ANTIBIOTICS Allergy (Unknown, Uncoded 05/31/25 08:39) ITCH,THROAT SWELLING imitrex Allergy (Unknown, Uncoded 05/31/25 08:39) Unknown PCN Allergy (Unknown, Uncoded 05/31/25 08:39) rash, oral swelling Medication List - Last Reconciled 05/31/25 by Aguilar Benavides PA-C atorvastatin 40 mg PO DAILY clonazepam 1 tab PO DAILY CPAP (CPAP Machine/Device) need for CPAP setting auto PAP 6 to 20 cm of water levothyroxine 137 mcg PO DAILY tirzepatide 5 mg (0.5 mL) subcut QWEEK 4 weeks Tobacco use date assessed: 05/31/25 Fall risk assessment: No Falls in past year Last assessed Fall Risk: 05/31/25 Dental Screening Dental Screen Date: 02/28/25 HPI f/u DMII -weight check HPI Details Patient is a 64-year-old female here today for follow-up visit Patient has a past medical history of hypothyroidism, hyperlipidemia, depression, anxiety. .. Concern--> recently underwent a face lift with the plastic surgeon [place]. Currently a bit swollen and recovering. Also Ivanna reports chronic issues with ingrown toenails, managed with legal transcriptionist assistance, and is considering podiatric evaluation for further management. .. Major depressive disorder: Continues on mental health medications and does see a psychiatrist and a mental health therapist. She does suffer from chronic fatigue related to likely her depression. . HYpothyroid: dd have a thyroiectomy 20 years ago. Continues on levothyroxine 137 mcg .. Type 2 diabetes: Today's A1c is at 6.2 from 6.0. She has started 5 mg of tirzepatide which has offered her good glycemic control and has lost weight. She is interested in increasing the Mounjaro dose for more weight loss. .. Hyperlipidemia: Patient continues on statin therapy atorvastatin 40 with good effect. Most recent lipid panel showing borderline high total cholesterol. Laboratory Tests 02/28/25 09:08 Fasting Glucose 108 H Cholesterol 207 H Vitamin B12 846 25-OH Vitamin D To savi 36.4 TSH 0.84 PFSH Medical History (Updated 05/31/25 @ 08:44 by Aguilar Benavides PA-C) Blood in stool Chronic lower back pain Abdominal pain Menopausal and postmenopausal disorder Arthritis Depression GERD (gastroesophageal reflux disease) Breast mass, right Rotator cuff tear, right Hypothyroidism HLD (hyperlipidemia) Smoker HTN (hypertension) Surgical History History of facelift History of thyroidectomy History of plastic surgery Family History Father Heart problem Mother Stroke Diabetes Brother Acute CVA (cerebrovascular accident) Social History Housing: Apartment Are you a primary childcare attendant to a significant other at home: No Do you presently have visiting nurse or other home services: No Alcohol intake: never Patient Tobacco Use Status: Former Tobacco user Tobacco use type: Cigarette Cigarettes Per Day: 15 e-Cigarette/Vaping Use: Never Used Second Hand Smoke Exposure: Yes service: No Current occupational status: employed 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, 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 needs: No Hearing needs: No Vision needs: Yes (Reading glasses) Questionnaire Thrive Questionnaire Date Thrive assessed: 02/28/25 I am a: Patient What is your living situation today?: I have a steady place to live Within the past 12 months, did the food you bought not last and you didn't have the money to get more?: Never true Within the past 12 months, did you worry whether your food would run out before you got money to buy more?: Never true Do you have trouble paying for medicines?: No Do you have trouble getting transportation to medical appointments?: No Do you have trouble paying your heating and electricity bill?: No Do you have trouble taking care of your child, family member or friend?: No Do you have trouble with day-to-day activities such as bathing, preparing meals, shopping, managing finances, etc.?: I choose not to answer this question Are you currently unemployed and looking for a job?: Yes Are you interested in more education?: No Please select the resources that you would like help with: None Currently or been in a relationship where the following occur: I choose not to answer THRIVE Score: 0 AUDIT C Alcohol Use Questionnaire (AUDIT-C) 3. How often do you have six or more drinks on one occasion?: Never Total Score: 0 MARIELY-7 AMB Questionnaire MARIELY-7 Date MARIELY - 7 assessed: 02/28/25 Source: Developed by Drs. Mich Espinoza, Perlita Avina, Aguila Harris and colleagues, with an educational stanley from [employer]. Review of Systems Const Denies headache(s) Eyes Denies loss of vision ENT Denies vertigo, Denies dizziness, Denies headache(s) and Denies sore throat Card Denies chest pain, Denies leg edema and Denies lightheadedness Resp Denies cough, Denies hemoptysis and Denies wheezing GI Denies abdominal pain, Denies melena, Denies constipation, Denies diarrhea and Denies vomiting Denies urinary frequency, Denies dysuria and Denies urinary urgency Musc Denies arthralgias, Denies joint swelling, Denies numbness and Denies tingling Neuro Denies Abnormal speech present, Denies behavioral changes, Denies vertigo, Denies dizziness, Denies headache(s), Denies loss of vision, Denies memory loss, Denies numbness and Denies tingling Psych Denies anxiety, Denies behavioral changes, Denies depression, Denies memory loss and Denies panic attacks [place]/Lymph Denies easy bleeding and Denies easy bruising Aller/Immun Denies wheezing Physical exam (Primary Care) Vital Signs: Last Vital Signs Temp 97.1 F 05/31/25 08:28 Pulse 76 05/31/25 08:28 BP 134/76 05/31/25 08:28 Pulse Ox 97 05/31/25 08:28 Oxygen Delivery Method Room Air 05/31/25 08:28 BMI result Body Mass Index 35.8 BMI Assessment/Plan discussion: High BMI High, discussed plan: lifestyle, weight reduction, dietary and physical activity Tobacco/Smoking Status: Tobacco use Status Tobacco use date assessed 05/31/25 05/31/25 08:35 Patient Tobacco Use Status Former Tobacco user 05/31/25 08:35 Tobacco use type Cigarette 05/31/25 08:35 e-Cigarette/Vaping Use Never Used 05/31/25 08:35 Thrive Assessment: Date of Thrive Assessment Date Thrive assessed 02/28/25 05/31/25 08:35 Currently or been in a relationship where the following occur: I choose not to answer Const General: healthy appearing, no acute distress, alert and awake Nutritional Appearance: well nourished Orientation/consciousness: oriented to person, oriented to place and oriented to time HENMT Ears: TM's normal bilaterally General nose exam: Normal nasal mucous membranes and turbinates present Eyes Conjunctivae: conjunctivae normal Sclerae: sclerae normal Pupils: Equal, round and reactive pupils present Neck Neck: Yes no lymphadenopathy and Yes no JVD Thyroid: Thyroid normal Carotids: no bruits Resp Effort & Inspection: normal respiratory effort and not tachypneic Auscultation: no crackles, no rales, no rhonchi and no wheezes Cardio Rate: regular rate Rhythm: regular rhythm Heart sounds: no murmurs and normal S1 and S2 GI Palpation (GI): Soft to palpation, nontender, no hepatomegaly and no splenomegaly Auscultation: normal bowel sounds Skin General skin exam: no rashes or lesions noted and dry skin Neuro General: oriented to person, oriented to place and oriented to time Cranial nerves: Yes Equal, round and reactive pupils present Speech: No Abnormal speech present Gait exam (Neuro): Normal gait present Motor exam (neuro): no tremor noted Extrem Right upper extremity: full ROM Left upper extremity: full ROM Right lower extremity: full ROM; no edema Left lower extremity: full ROM; no edema Psych Mental Status: mental status grossly normal Speech and movement: Normal speech and movement present Affect: normal affect Attitude: cooperative Thought process: Normal thought process present Results AMB Hemoglobin A1c AMB Hemoglobin A1c 6.2 % Last Edit by MK Mirza on 05/31/25 08:40 Coding Level of Care Code Est Pt Level 4 (00892) Diagnoses Type 2 diabetes mellitus with hyperglycemia, without long-term current use of insulin E11.65 Diabetes mellitus keno terminal operator insulin use: without keno terminal operator use Diabetes mellitus complication status: with hyperglycemia Ingrown toenail L60.0 Mixed hyperlipidemia E78.2 Hyperlipidemia type: mixed hyperlipidemia Hypothyroidism, unspecified type E03.9 Hypothyroidism type: unspecified MDD (major depressive disorder), recurrent episode, mild F33.0 Class 2 obesity E66.812 Assessment & Plan Assessment & Plan (1) DMII (diabetes mellitus, type 2): Code(s): E11.9 - Type 2 diabetes mellitus without complications Category: Medical Qualifiers: Diabetes mellitus [facility] insulin use: without [facility] use Diabetes mellitus complication status: with hyperglycemia Qualified Code(s): E11.65 - Type 2 diabetes mellitus with hyperglycemia Plan: Patient's type 2 diabetes fairly well controlled with lifestyle and dietary modifications. She has not been taking metformin due to fears of side effects. Today's A1c is at 6.2 Will increase her Mounjaro dose to 7.5 for better glycemic control and more weight loss. Goal A1c to be below 6.5 (2) Ingrown toenail: Code(s): L60.0 - Ingrowing nail Category: Medical Plan: The patient is advised to see a heel seat fitter machine for evaluation and management of her chronic ingrown toenails, which have been causing discomfort. A referral to a heel seat fitter machine has been made to explore potential interventions. (3) HLD (hyperlipidemia): Code(s): E78.5 - Hyperlipidemia, unspecified Category: Medical Qualifiers: Hyperlipidemia type: mixed hyperlipidemia Qualified Code(s): E78.2 - Mixed hyperlipidemia Plan: Patient's most recent lipid showing improved total cholesterol and LDL. She continues on atorvastatin 40 mg. Goal LDL is to be below 100 (4) Hypothyroidism: Code(s): E03.9 - Hypothyroidism, unspecified Category: Medical Qualifiers: Hypothyroidism type: unspecified Qualified Code(s): E03.9 - Hypothyroidism, unspecified Plan: Patient continues on levothyroxine 137 mcg.. Most recent TSH stable. (5) MDD (major depressive disorder), recurrent episode, mild: Code(s): F33.0 - Major depressive disorder, recurrent, mild Category: Medical Plan: Patient does suffer from depression to which he sees a psychiatrist about, she is managed with the medication. She does suffer from chronic fatigue that is related to her depression. (6) Class 2 obesity: Code(s): E66.812 - Obesity, class 2 Category: Medical Plan: Patient does understand her BMI is over 35 and will continue working on being more physically active and adapting to better eating habits to reduce her weight. She is hopeful that GLP 1 medication will also help her manage her weight. Orders: Orders AMB Hemoglobin A1c Today E11.65 - Type 2 diabetes mellitus with hyperglycemia Complete Blood Count no Diff Today E11.65 - Type 2 diabetes mellitus with hyperglycemia Comprehensive Angela. Panel Fast Today E11.65 - Type 2 diabetes mellitus with hyperglycemia TSH reflex Free T4 Today E03.9 - Hypothyroidism, unspecified Lipid Panel Today E78.2 - Mixed hyperlipidemia Referrals Podiatry Referral E11.65 - Type 2 diabetes mellitus with hyperglycemia, L60.0 - Ingrowing nail Medications: New tirzepatide (Mounjaro) 7.5 mg (0.5 mL) subcut QWEEK 2 mL 2RF 4 weeks E11.65 - Type 2 diabetes mellitus with hyperglycemia On Hold tirzepatide Hold Comment: Doctor's Order 5 mg (0.5 mL) subcut QWEEK 2 mL 2RF 4 weeks E11.65 - Type 2 diabetes mellitus with hyperglycemia
[2025-05-31 08:28] VITALS: BP 134/76; PULSE 76; TEMP 36.2; O2SAT 97; BMI 35.8
== END 2025-05-31 08:51 | disposition home or self-care (01) ==
LOC: HO.HMCH 07:36
PROVIDERS: PCP Physician Assistant; Visit Provider Physician Assistant
DX: E11.65 Type 2 diabetes mellitus with hyperglycemia (principal); E66.812 Obesity, class 2; Z68.35 Body mass index [BMI] 35.0-35.9, adult; L60.0 Ingrowing nail; E78.2 Mixed hyperlipidemia; E03.9 Hypothyroidism, unspecified; F33.0 Major depressive disorder, recurrent, mild

== ENCOUNTER → 2025-05-31 07:35 | Outpatient (BNVA) | payer MEDICARE, SELFPAY | PROVIDERS: PCP Physician Assistant; Visit Provider Physician Assistant | DX: E11.65 Type 2 diabetes mellitus with hyperglycemia (principal); L60.0 Ingrowing nail; E78.5 Hyperlipidemia, unspecified; E03.9 Hypothyroidism, unspecified; F33.0 Major depressive disorder, recurrent, mild; E66.812 Obesity, class 2; Z68.35 Body mass index [BMI] 35.0-35.9, adult; Z79.899 Other long term (current) drug therapy | CPT/HCPCS: 83036; 99212 ==

== ENCOUNTER 2025-09-07 07:52 | Outpatient (REF) | payer MEDICARE, SELFPAY ==
--- OUTSIDE RECORDS SUMMARY | 2025-09-07 07:56 | XMS_ITS | Clinical Summary ---
Author Organization [address] [facility] [address] Address [address] [place] [address] Phone Care Team Providers Care Reactor Technician Name Role Phone Physician, Pcp Unknown Primary Care Provider Asha vailable Allergies Active Allergy Reactions Criticality Noted Date Comments Cephalexin 11/29/2024 Sumatriptan 11/29/2024 Penicillins 11/29/2024 Medications atorvastatin (LIPITOR) 40 mg tablet Take 1 tablet (40 mg total) by mouth 1 (one) time each day. 09/13/20 24 Active clonazePAM (KlonoPIN) 0.5 mg tablet Take 1 tablet (0.5 mg total) by mouth 2 (two) times a day if needed. 11/01/20 24 Active FLUoxetine (PROzac) 10 mg capsule Take 1 capsule (10 mg total) by mouth 1 (one) time each day. 11/01/20 24 Active levothyroxine (SYNTHROID, LEVOTHROID) 137 mcg tablet Take 1 tablet (137 mcg total) by mouth 1 (one) time each day. 10/14/20 24 Active meloxicam (MOBIC) 15 mg tablet Take 1 tablet (15 mg total) by mouth 1 (one) time each day. 08/02/20 24 Active metFORMIN (GLUCOPHAGE) 500 mg tablet Take 1 tablet (500 mg total) by mouth 1 (one) time each day. 10/14/20 24 Active gabapentin (NEURONTIN) 300 mg capsule TAKE 1 CAPSULE BY MOUTH two (2) times a day STARTING 1 DAY BEFORE surgery 05/18/20 25 Active HYDROcodone-acet aminophen (NORCO) 5-325 mg per tablet Take 1 tablet by mouth every 6 (six) hours if needed. for pain 05/18/20 25 Active Mounjaro 2.5 mg/0.5 mL injection INJECT THE CONTENT OF 1 syringe SUBCUTANEOUSLY EVERY WEEK 01/13/20 25 Active silver sulfADIAZINE (Silvadene) 1 % cream Apply topically 1 (one) time each day. 50 g 08/07/20 25 026 Active Encounters Date Type Department Care Team Description 08/21/2025 8:30 AM EDT Office Visit Orthopedic Surgery [place] [address] [phone] Dario Hadley DPM Hallux rigidus of left foot (Primary Dx); Ingrowing nail; Dermatophytosis of nail 08/07/2025 9:15 AM EDT Office Visit Orthopedic Surgery [place] [address] [phone] Dario Hadley DPM Tendinitis of left ankle (Primary Dx); Ingrowing nail; Hallux rigidus of left foot 06/22/2025 8:30 AM EDT Office Visit Orthopedic Surgery [place] [address] [phone] Dario Hadley DPM Ingrowing nail (Primary Dx); Hallux rigidus of left foot; Tendinitis of left ankle; Disorder of ligament of foot, left; Dermatophytosis of nail; Pain in toe of right foot; Pain in toe of left foot; Difficulty walking from Last 3 Months Surgical History Surgery Date Site/Laterality Comments THYROIDECTOMY COSMETIC SURGERY Medical History Medical History Date Comments Diabetes mellitus (CMS/HCC V24, CMS/[facility] V28) Type 2 diabetes mellitus (CMS/HCC V24, CMS/[facility] V 28) Hypothyroid Hyperlipidemia Anxiety Arthritis Depression [...] Oxygen Concentration - - Weight 84.8 kg (186 lb 15.2 oz) 06/22/2025 8:23 AM EDT Height 152.4 cm (5') 06/22/2025 8:23 AM EDT Body Mass Index 36.51 06/22/2025 8:23 AM EDT Plan of Treatment Upcoming Encounters Date Type Department Care Team (Late st Contact Info) Description 09/14/2025 8:30 AM EST Office Visit Orthopedic Surgery - [place] [address] [phone] Dario Hadley, DPM [address] [phone] Health Maintenance Due Date Last Done Comments Breast Cancer Screening 1960 Colorectal Cancer Screening: Colonoscopy 1960 Zoster Vaccines (1 of 2) 2009 Hepatitis C Screening 11/26/2023 Medicare Annual Wellness Visit 11/26/2023 Osteoporosis Screening (Bone Density Screening) 11/26/2023 Social Influencers of Health Screening 11/26/2023 Falls Risk Assessment 2024 Depression Screening 11/02/2024 COVID-19 Vaccine ( season) 2025 10/05/2021, 12/31/2020, 12/10/2020 Influenza Vaccine (#1) 2025 , 09/08/2023, 11/07/2021, Additional history exists DTaP,Tdap,and Td Vaccines (2 - Td or Tdap) 02/10/2029 02/10/2019 RSV Immunization Adult Patients (1 - 1-dose 75+ series) 2034 Pneumococcal Vaccine: 50+ Years Completed 09/08/2023, 06/30/2016 HIB Vaccines Aged Out No longer eligi [...] Diagnosis Comments INJECTION TENDON OR LIGAMENT Routine 06/22/2025 8:30 AM EDT Disorder of ligament of foot, left from Last 3 Months Results * Injection tendon or ligament (06/22/2025 8:30 AM EDT) Narrative Dario Hadley DPM - 06/22/2025 8:30 AM EDT Dario Hadley DPM 06/22/2025 12:58 PM Injection tendon or ligament Indications: pain Details: 25 G needle Medications: 0.5 mL lidocaine (PF) 1 %; 20 mg triamcinolone acetonide 40 mg/mL Informed Consent: Site: Foot ligament tendon Dario Hadley DPM IN CLINIC/BEDSIDE ORDERAB LES Final Result from Last 3 Months Insurance [employer] MED[employer]ARE [employer]AGE Care Teams Reactor Technician Relationship Specialty Start Date End Date Physician, Pcp Unknown PCP - General 11/14/24
[2025-09-07 08:20] LABS: Hematocrit 41.0 % (37.0-47.0); Hemoglobin 13.8 g/dl (12.0-16.0); Mean Corpuscular HGB Conc 33.7 g/dl (31.0-35.0); Mean Corpuscular Hemoglobin 28.8 pg (27.0-33.0); Mean Corpuscular Volume 85.6 fL (80.0-98.0); NRBC Abs Auto 0.000 X10*3/uL (0.0-0.012); NRBC Pct Auto 0.0 /100WBC (0.0-0.2); Platelet Count 306 X10*3/uL (160-400); Red Blood Count 4.79 X10*6/uL (4.20-5.50); White Blood Count 4.7 X10*3/uL (4.8-10.8)
[2025-09-07 08:48] LABS: Alanine Aminotransferase 19 U/L (0-31); Albumin Level 4.3 g/dL (3.5-5.0); Alkaline Phosphatase 62 U/L (39-117); Anion Gap 11 (12-20); Aspartate Amino Transferase 20 U/L (5-31); Blood Urea Nitrogen 11 mg/dL (9-16); Calcium 9.0 mg/dL (8.4-10.2); Carbon Dioxide 25 mmol/L (22-29); Chloride 110 mmol/L (96-108); Cholesterol 154 mg/dL (<200); Estimated Glomerular Filt Rate > 60; HDL Cholesterol 42 mg/dL (>40); Potassium 3.9 mmol/L (3.3-5.1); Sodium 142 mmol/L (135-145); Total Protein 7.1 g/dL (6.5-8.0); Triglycerides 111 mg/dL (<150)
[2025-09-07 09:36] LABS: Free T4 (Free Thyroxine) 1.28 ng/dL (0.71-1.85)
== END 2025-09-07 07:53 | disposition home or self-care (01) ==
LOC: HO.LAB 07:52
PROVIDERS: PCP Physician Assistant; Visit Provider Physician Assistant
DX: Z23 Encounter for immunization (principal); E11.65 Type 2 diabetes mellitus with hyperglycemia; E03.9 Hypothyroidism, unspecified; E78.2 Mixed hyperlipidemia; F33.0 Major depressive disorder, recurrent, mild; K21.9 Gastro-esophageal reflux disease without esophagitis; E66.9 Obesity, unspecified; Z68.31 Body mass index [BMI] 31.0-31.9, adult
CPT/HCPCS: 36415; 80053; 80061; 83036; 84439; 84443; 85027; 90471; 90656; 99212

== ENCOUNTER 2025-09-07 08:06 | Outpatient (AMB) | payer MEDICARE, SELFPAY ==
--- NOTE | 2025-09-07 08:09 | MHC.PC.OV ---
Vital Signs 09/07/25 08:11 Height 5 ft Weight 162 lb 4 oz BMI 31.7 BP 120/66 Blood Pressure Location Lt brachial Position Sitting Pulse 80 Pulse Source Pulse Oximeter Temp 96.9 F Temp Source Temporal Artery Scan Pulse Oximetry (%) 95 Oxygen Delivery Method Room Air Intake Visit Reasons: f/u DMII Intake Note: Patient is here to follow up on DM. Figure Model Required: No Funeral Director'S Assistant: Not Required per policy Accompanied by: Self / Same As Patient Allergies cephalexin Allergy (Mild, Verified 09/07/25 08:18) Unknown SOME ANTIBIOTICS Allergy (Unknown, Uncoded 09/07/25 08:18) ITCH,THROAT SWELLING imitrex Allergy (Unknown, Uncoded 09/07/25 08:18) Unknown PCN Allergy (Unknown, Uncoded 09/07/25 08:18) rash, oral swelling Medication List - Last Reconciled 09/07/25 by Aguilar Benavides PA-C atorvastatin 40 mg PO DAILY clonazepam 1 tab PO DAILY CPAP (CPAP Machine/Device) need for CPAP setting auto PAP 6 to 20 cm of water levothyroxine 137 mcg PO DAILY tirzepatide (Mounjaro) 7.5 mg (0.5 mL) subcut QWEEK 4 weeks Tobacco use date assessed: 09/07/25 Fall risk assessment: No Falls in past year Last assessed Fall Risk: 09/07/25 Dental Screening Dental Screen Date: 02/28/25 HPI f/u DMII HPI Details Patient is a 65-year-old female here today for follow-up visit. Patient has a past medical history of hypothyroidism, hyperlipidemia, depression, type 2 diabetes, obesity, anxiety. .. Concern--> patient reports having increased GERD lately and has been using omeprazole which has been helpful. .. Major depressive disorder: Continues on mental health medications and does see a psychiatrist and a mental health therapist. She reports her fatigue has been better since she has lost weight and has been more physically active. Her depression has been much better since feeling more self-confident . HYpothyroid: dd have a thyroiectomy 20 years ago. Continues on levothyroxine 137 mcg .. Type 2 diabetes: Today's A1c at 5.5 from 6.2.. She continues on Zepbound 7.5 mg weekly. Has lost significant amount of weight since last office visit. Today BMI of 31. .. Hyperlipidemia: Patient continues on statin therapy atorvastatin 40 with good effect. Most recent lipid panel showing borderline high total cholesterol. [facility] Medical History (Updated 09/07/25 @ 08:41 by Aguilar Benavides PA-C) Blood in stool Chronic lower back pain Abdominal pain Menopausal and postmenopausal disorder Arthritis Depression GERD (gastroesophageal reflux disease) Breast mass, right Rotator cuff tear, right Hypothyroidism HLD (hyperlipidemia) Smoker HTN (hypertension) Surgical History History of facelift History of thyroidectomy History of plastic surgery Family History Father Heart problem Mother Stroke Diabetes Brother Acute CVA (cerebrovascular accident) Social History Housing: Apartment Are you a primary acute care clinical nurse specialist to a significant other at home: No Do you presently have visiting nurse or other home services: No Alcohol intake: never Patient Tobacco Use Status: Former Tobacco user Tobacco use type: Cigarette Cigarettes Per Day: 15 e-Cigarette/Vaping Use: Never Used Second Hand Smoke Exposure: Yes service: No Current occupational status: employed 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, 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 needs: No Hearing needs: No Vision needs: Yes (Reading glasses) Questionnaire Thrive Questionnaire Date Thrive assessed: 02/28/25 I am a: Patient What is your living situation today?: I have a steady place to live Within the past 12 months, did the food you bought not last and you didn't have the money to get more?: Never true Within the past 12 months, did you worry whether your food would run out before you got money to buy more?: Never true Do you have trouble paying for medicines?: No Do you have trouble getting transportation to medical appointments?: No Do you have trouble paying your heating and electricity bill?: No Do you have trouble taking care of your child, family member or friend?: No Do you have trouble with day-to-day activities such as bathing, preparing meals, shopping, managing finances, etc.?: I choose not to answer this question Are you currently unemployed and looking for a job?: Yes Are you interested in more education?: No Please select the resources that you would like help with: None Currently or been in a relationship where the following occur: I choose not to answer THRIVE Score: 0 MARIELY-7 AMB Questionnaire MARIELY-7 Date MARIELY - 7 assessed: 02/28/25 Source: Developed by Drs. Mich Espinoza, Perlita Avina, Aguila Harris and colleagues, with an educational stanley from [employer]. Review of Systems Const Denies headache(s) Eyes Denies loss of vision ENT Denies vertigo, Denies dizziness, Denies headache(s) and Denies sore throat Card Denies chest pain, Denies leg edema and Denies lightheadedness Resp Denies cough, Denies hemoptysis and Denies wheezing GI Denies abdominal pain, Denies melena, Denies constipation, Denies diarrhea and Denies vomiting Denies urinary frequency, Denies dysuria and Denies urinary urgency Musc Denies arthralgias, Denies joint swelling, Denies numbness and Denies tingling Neuro Denies Abnormal speech present, Denies behavioral changes, Denies vertigo, Denies dizziness, Denies headache(s), Denies loss of vision, Denies memory loss, Denies numbness and Denies tingling Psych Denies anxiety, Denies behavioral changes, Denies depression, Denies memory loss and Denies panic attacks Kolby/Lymph Denies easy bleeding and Denies easy bruising Aller/Immun Denies wheezing Physical exam (Primary Care) Vital Signs: Last Vital Signs Temp 96.9 F 09/07/25 08:11 Pulse 80 09/07/25 08:11 BP 120/66 09/07/25 08:11 Pulse Ox 95 09/07/25 08:11 Oxygen Delivery Method Room Air 09/07/25 08:11 BMI result Body Mass Index 31.7 BMI Assessment/Plan discussion: High BMI High, discussed plan: lifestyle, weight reduction, dietary and physical activity Tobacco/Smoking Status: Tobacco use Status Tobacco use date assessed 09/07/25 09/07/25 08:17 Patient Tobacco Use Status Former Tobacco user 09/07/25 08:17 Tobacco use type Cigarette 09/07/25 08:17 e-Cigarette/Vaping Use Never Used 09/07/25 08:17 Thrive Assessment: Date of Thrive Assessment Date Thrive assessed 02/28/25 09/07/25 08:17 Currently or been in a relationship where the following occur: I choose not to answer Const Other: OBESE General: healthy appearing, no acute distress, alert and awake Nutritional Appearance: well nourished Orientation/consciousness: oriented to person, oriented to place and oriented to time HENMT Ears: TM's normal bilaterally General nose exam: Normal nasal mucous membranes and turbinates present Eyes Conjunctivae: conjunctivae normal Sclerae: sclerae normal Pupils: Equal, round and reactive pupils present Neck Neck: Yes no lymphadenopathy and Yes no JVD Thyroid: Thyroid normal Carotids: no bruits Resp Effort & Inspection: normal respiratory effort and not tachypneic Auscultation: no crackles, no rales, no rhonchi and no wheezes Cardio Rate: regular rate Rhythm: regular rhythm Heart sounds: no murmurs and normal S1 and S2 GI Palpation (GI): Soft to palpation, nontender, no hepatomegaly and no splenomegaly Auscultation: normal bowel sounds Skin General skin exam: no rashes or lesions noted and dry skin Neuro General: oriented to person, oriented to place and oriented to time Cranial nerves: Yes Equal, round and reactive pupils present Speech: No Abnormal speech present Gait exam (Neuro): Normal gait present Motor exam (neuro): no tremor noted Extrem Right upper extremity: full ROM Left upper extremity: full ROM Right lower extremity: full ROM; no edema Left lower extremity: full ROM; no edema Psych Mental Status: mental status grossly normal Speech and movement: Normal speech and movement present Affect: normal affect Attitude: cooperative Thought process: Normal thought process present Office Procedures Flu Questionnaire Does the patient have a severe egg allergy?: No Does the patient have severe life threatening allergies?: No Does the patient have a fever or illness today?: No Has the patient ever had Guillain-[place] Syndrome?: No Has the patient ever had any past reaction to a flu shot?: No Results AMB Hemoglobin A1c AMB Hemoglobin A1c 5.5 % Last Edit by MK Mirza on 09/07/25 08:25 Immunizations Fluarix [id number] (PF) 45 mcg (15 mcg x 3)/0.5 mL IM syringe Performing Provider: Aguilar Benavides PA-C Performing Location[facility] [place] Administered by: Dior Espino LPN on 09/07/25 08:38 Dose Route Admin Location Dispensed Lot Number Expiration Date NDC Environmental Safety Specialist 0.5 mL IM Left Deltoid 0.5 mL [id number] 05/01/26 85726-821-29 [employer] VIS Given Date VIS Provided VIS Publication Date 09/07/25 Single Vaccine 24 Eligibility Eligibility Date Funding Source Not [facility] Eligible 09/07/25 Private Results Reviewed Results Reviewed: Laboratory Last Values Hgb A1c (Clinic) 5.5 % (4.0-6.0) 09/07/25 08:08 Coding Level of Care Code Est Pt Level 4 (78452) Diagnoses Type 2 diabetes mellitus with hyperglycemia, without long-term current use of insulin E11.65 Diabetes mellitus correction insulin use: without termite control representative use Diabetes mellitus complication status: with hyperglycemia Mixed hyperlipidemia E78.2 Hyperlipidemia type: mixed hyperlipidemia Hypothyroidism, unspecified type E03.9 Hypothyroidism type: unspecified MDD (major depressive disorder), recurrent episode, mild F33.0 Gastroesophageal reflux disease without esophagitis K21.9 Esophagitis presence: without esophagitis Class 1 obesity E66.9 Assessment & Plan Assessment & Plan (1) DMII (diabetes mellitus, type 2): Code(s): E11.9 - Type 2 diabetes mellitus without complications Category: Medical Qualifiers: Diabetes mellitus termite control representative insulin use: without termite control representative use Diabetes mellitus complication status: with hyperglycemia Qualified Code(s): E11.65 - Type 2 diabetes mellitus with hyperglycemia Plan: Patient's type 2 diabetes fairly well controlled with lifestyle and dietary modifications. She has not been taking metformin due to fears of side effects. Today's A1c is at 5.5 from 6.2 She continues on Mounjaro 7.5 weekly and has a lost nearly 20 lb since last office visit. Goal A1c to be below 6.5 (2) HLD (hyperlipidemia): Code(s): E78.5 - Hyperlipidemia, unspecified Category: Medical Qualifiers: Hyperlipidemia type: mixed hyperlipidemia Qualified Code(s): E78.2 - Mixed hyperlipidemia Plan: Patient's most recent lipid showing improved total cholesterol and LDL. Patient does report having bilateral thigh pain. Patient has been more physically active walking every day.. Will reduce her atorvastatin to 20 mg due to probable side effect of myalgia. Goal LDL is to be below 100 (3) Hypothyroidism: Code(s): E03.9 - Hypothyroidism, unspecified Category: Medical Qualifiers: Hypothyroidism type: unspecified Qualified Code(s): E03.9 - Hypothyroidism, unspecified Plan: Patient continues on levothyroxine 137 mcg.. Most recent TSH stable. (4) MDD (major depressive disorder), recurrent episode, mild: Code(s): F33.0 - Major depressive disorder, recurrent, mild Category: Medical Plan: Patient reports her depression has been much better. She continues to see a psychiatrist who manages her clonazepam. (5) GERD (gastroesophageal reflux disease): Code(s): K21.9 - Gastro-esophageal reflux disease without esophagitis Category: Medical Qualifiers: Esophagitis presence: without esophagitis Qualified Code(s): K21.9 - Gastro-esophageal reflux disease without esophagitis Plan: Patient will continue using [id number] Prilosec for her GERD symptoms. Advised on dietary modifications to reduce her GERD symptoms. (6) Class 1 obesity: Code(s): E66.9 - Obesity, unspecified Category: Medical Plan: Patient does understand her BMI remains above 30 and will continue working on being more physically active and adapting to better eating habits to reduce her weight. Since being placed on GLP 1 she has been able to manage significant amount of weight loss. Orders: Orders Comprehensive Slater. Panel Fast 5 Months E11.65 - Type 2 diabetes mellitus with hyperglycemia Hemoglobin A1c Today E11.65 - Type 2 diabetes mellitus with hyperglycemia TSH reflex Free T4 5 Months E03.9 - Hypothyroidism, unspecified AMB Hemoglobin A1c Today E11.65 - Type 2 diabetes mellitus with hyperglycemia Influenza [id number] Immunization Today Z23 - Encounter for immunization Complete Blood Count no Diff 5 Months E11.65 - Type 2 diabetes mellitus with hyperglycemia Lipid Panel 5 Months E78.2 - Mixed hyperlipidemia Medications: New atorvastatin (Lipitor) 20 mg PO DAILY 90 tabs 1RF 90 days E78.2 - Mixed hyperlipidemia Discontinued atorvastatin Discontinued Reason: Doctor's Order 40 mg PO DAILY 30 tabs 6RF E78.2 - Mixed hyperlipidemia Patient Instructions: Goal: A1c to remain below 6.5, LDL to be below 100. Barriers: Adherence to physical activity and healthy eating habits
[2025-09-07 08:11] VITALS: BP 120/66; PULSE 80; TEMP 36.1; O2SAT 95; BMI 31.7
== END 2025-09-07 08:39 | disposition home or self-care (01) ==
LOC: HO.HMCH 08:06
PROVIDERS: PCP Physician Assistant; Visit Provider Physician Assistant
DX: E11.65 Type 2 diabetes mellitus with hyperglycemia (principal); E78.2 Mixed hyperlipidemia; E66.9 Obesity, unspecified; Z68.31 Body mass index [BMI] 31.0-31.9, adult; E03.9 Hypothyroidism, unspecified; F33.0 Major depressive disorder, recurrent, mild; K21.9 Gastro-esophageal reflux disease without esophagitis; Z23 Encounter for immunization

== ENCOUNTER 2025-10-23 09:17 | Outpatient (AMB) | payer MEDICARE, SELFPAY ==
--- NOTE | 2025-10-23 09:36 | A.OFFPC_ITS ---
Vital Signs 10/23/25 09:37 Height 5 ft Weight 161 lb BMI 31.4 BP 110/70 Blood Pressure Location Lt brachial Position Sitting Respiration 18 Pulse 76 Pulse Source Pulse Oximeter Temp 97.4 F Temp Source Temporal Artery Scan Pulse Oximetry (%) 98 Oxygen Delivery Method Room Air Intake Visit Reasons: 11/17/25 [facility] [place], [place] Customer Engagement Specialist Required: No Accompanied by: Self / Same As Patient Allergies cephalexin Allergy (Mild, Verified 10/23/25 09:36) Unknown SOME ANTIBIOTICS Allergy (Unknown, Uncoded 09/07/25 08:18) ITCH,THROAT SWELLING imitrex Allergy (Unknown, Uncoded 09/07/25 08:18) Unknown PCN Allergy (Unknown, Uncoded 09/07/25 08:18) rash, oral swelling Tobacco use date assessed: 09/07/25 Fall risk assessment: No Falls in past year Last assessed Fall Risk: 10/23/25 Dental Screening Dental Screen Date: 02/28/25 HPI HPI Comments History of Present Illness Details Patient is a 65-year-old female with history of type 2 diabetes mellitus, hyperlipidemia, hypothyroid, depression and anxiety who is presenting for preoperative evaluation for a BBL surgery scheduled 11/14/25 at [place], [place]. Has no acute concerns. Patient denies history of hypertension, heart attack, stroke or heart failure. Denies insulin use. Her current medications include atorvastatin 20 mg, clonazepam 0.5 mg taken daily at night, levothyroxine 88 mcg, and a multivitamin. She was taking Mounjaro but stopped it in preparation for surgery, with her last dose being on October 13. She denies smoking or alcohol use. She reports walking an hour every day. [facility] Medical History (Updated 09/07/25 @ 08:41 by Aguilar Benavides PA-C) Blood in stool Chronic lower back pain Abdominal pain Menopausal and postmenopausal disorder Arthritis Depression GERD (gastroesophageal reflux disease) Breast mass, right Rotator cuff tear, right Hypothyroidism HLD (hyperlipidemia) Smoker HTN (hypertension) Surgical History History of facelift History of thyroidectomy History of plastic surgery Family History Father Heart problem Mother Stroke Diabetes Brother Acute CVA (cerebrovascular accident) Social History Housing: Apartment Are you a primary director day care center to a significant other at home: No Do you presently have visiting nurse or other home services: No Alcohol intake: never Patient Tobacco Use Status: Former Tobacco user Tobacco use type: Cigarette Cigarettes Per Day: 15 e-Cigarette/Vaping Use: Never Used Second Hand Smoke Exposure: Yes service: No Current occupational status: employed 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, 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 needs: No Hearing needs: No Vision needs: Yes (Reading glasses) Questionnaire Thrive Questionnaire Date Thrive assessed: 02/28/25 I am a: Patient What is your living situation today?: I have a steady place to live Within the past 12 months, did the food you bought not last and you didn't have the money to get more?: Never true Within the past 12 months, did you worry whether your food would run out before you got money to buy more?: Never true Do you have trouble paying for medicines?: No Do you have trouble getting transportation to medical appointments?: No Do you have trouble paying your heating and electricity bill?: No Do you have trouble taking care of your child, family member or friend?: No Do you have trouble with day-to-day activities such as bathing, preparing meals, shopping, managing finances, etc.?: I choose not to answer this question Are you currently unemployed and looking for a job?: Yes Are you interested in more education?: No Currently or been in a relationship where the following occur: I choose not to answer THRIVE Score: 0 MARIELY-7 AMB Questionnaire MARIELY-7 Date MARIELY - 7 assessed: 02/28/25 Source: Developed by Drs. Mich Espinoza, Perlita Avina, Aguila Harris and colleagues, with an educational stanley from [employer]. Physical exam (Primary Care) Vital Signs: Last Vital Signs Temp 97.4 F 10/23/25 09:37 Pulse 76 10/23/25 09:37 Resp 18 10/23/25 09:37 BP 110/70 10/23/25 09:37 Pulse Ox 98 10/23/25 09:37 Oxygen Delivery Method Room Air 10/23/25 09:37 General: Well-appearing, alert, oriented ?3, in no acute distress. HEENT: Normocephalic, atraumatic, PERRLA, EOMI, no scleral icterus. External ears normal, tympanic membranes intact bilaterally, no erythema or effusion. Nares patent, normal mucosa pink, no discharge. No oral lesions, or pharyngeal erythema. Neck Supple. Cardiovascular: RRR, S1-S2 appreciated, no murmurs, rubs or gallops. Respiratory: Lungs clear to auscultation bilaterally, no wheezes, rales or rhonchi. Abdomen: Soft, nontender, nondistended. Normoactive bowel sounds. Neurologic: Alert and oriented X3, cranial nerves II?XII grossly intact, sensation and strength intact in bilateral lower and upper extremities. BMI result Body Mass Index 31.4 Tobacco/Smoking Status: Tobacco use Status Tobacco use date assessed 09/07/25 10/23/25 09:43 Patient Tobacco Use Status Former Tobacco user 10/23/25 09:43 Tobacco use type Cigarette 10/23/25 09:43 e-Cigarette/Vaping Use Never Used 10/23/25 09:43 Thrive Assessment: Date of Thrive Assessment Date Thrive assessed 02/28/25 10/23/25 09:43 Currently or been in a relationship where the following occur: I choose not to answer Coding Level of Care Code Est Pt Level 4 (30881) Diagnoses Preop examination Z01.818 Assessment & Plan Assessment & Plan (1) Preop examination: Code(s): Z01.818 - Encounter for other preprocedural examination Plan: Patient presenting for preoperative evaluation for a BBL surgery scheduled 11/14/25 at [facility] [place], [place]. Has no acute concerns. Patient denies history of hypertension, heart attack, stroke or heart failure. Denies insulin use. She denies smoking or alcohol use. She reports walking an hour every day without issues. Perioperative medication management: Patient may continue on atorvastatin 20 mg, clonazepam 0.5 mg at bedtime, levothyroxine 88 mcg. Patient last took majora on 10/13/2025, to continue holding it until surgery. Patient going for a low risk surgery, with RCRI score of 0 points - 0.5% of risk of major cardiac event. Obtain blood work, EKG and chest x-ray. Patient also referred to Cardiology for clearance as requested. She has no complaints of chest pain, palpitation or shortness of breath. Orders: Orders Hemoglobin A1c Today Z01.818 - Encounter for other preprocedural examination Complete Blood Count Auto Diff Today Z00.00 - Encounter for general adult medical examination without abnormal findings, Z818 - Encounter for other preprocedural examination HCG Quantitative Today Z.818 - Encounter for other preprocedural examination Prothrombin Time INR Today Z.818 - Encounter for other preprocedural examination TSH reflex Free T4 Today Z.818 - Encounter for other preprocedural examination T4 Thyroxine Today Z.818 - Encounter for other preprocedural examination Triiodothyronine T3 Total Today Z.818 - Encounter for other preprocedural examination UA CC w/rflx Micro + Cult Today Z.818 - Encounter for other preprocedural examination Partial Thromboplastin Time Today Z.818 - Encounter for other preprocedural examination Comprehensive Met. Panel Today Z00.00 - Encounter for general adult medical examination without abnormal findings, Z.818 - Encounter for other pr eprocedural examination HIV Ab/Ag Today Z01.818 - Encounter for other preprocedural examination XR chest 2V Today Z01.818 - Encounter for other preprocedural examination ECG 12 lead EKG Today Z01.818 - Encounter for other preprocedural examination Referrals Cardiology Referral Z01.810 - Encounter for preprocedural cardiovascular examination
[2025-10-23 09:37] VITALS: BP 110/70; PULSE 76; RESP 18; TEMP 36.3; O2SAT 98; BMI 31.4
--- OUTSIDE RECORDS SUMMARY | 2025-10-23 10:20 | XMS_ITS | Clinical Summary ---
Author Organization [address] [facility] [address] Address [address] [place] [address] Phone Care Team Providers Care Tester Vibrator Equipment Name Role Phone Physician, Pcp Unknown Primary [...] 8:30 AM EDT Office Visit Orthopedic Surgery [place] [phone] [phone] Dario Hadley DPM Hallux rigidus of left foot (Primary Dx); Ingrowing nail; Dermatophytosis of nail 08/07/2025 9:15 AM EDT Office Visit [place] [phone] [phone] Dario Hadley DPM Tendinitis of left ankle (Primary Dx); Ingrowing nail; Hallux rigidus of left foot from Last 3 Months Surgical History Surgery Date Site/Laterality Comments THYROIDECTOMY COSMETIC SURGERY Medical History Medical History Date Comments Diabetes mellitus ([facility] V24, [facility] V28) Type 2 diabetes mellitus ([facility] V24, [facility] V 28) Hypothyroid Hyperlipidemia Anxiety Arthritis Depression GERD (gastroesophageal reflux disease) Right rotator cuff tear Smoker Hypertension Social History Tobacco Use Types Packs/Day Years Used Date Smoking Tobacco: Never Assessed Comments Unknown Sex and Gender Information Value Date Recorded Sex Assigned at Not on file Legal Sex Female 8:16 PM EST Gender Identity Not on file Sexual Orientation Not on file Last Filed Vital Signs Vital Sign Reading [...] Care Team (Late st Contact Info) Description 11/09/2025 8:15 AM EST Office Visit Orthopedic [place] [phone] [phone] Dario Hadley DPM [address] [phone] Health Maintenance Due Date Last Done Comments Breast Cancer Screening 1959 Colorectal Cancer Screening: Colonoscopy 1960 Drug Screen 1960 Non-Opioid Controlled Substance Agreement 1959 Zoster Vaccines (1 of 2) 2009 [...] on patient's age to complete this topic Insurance [employer] MEDICARE ADVANTAGE Care Teams Tester Vibrator Equipment Relationship Specialty Start Date End Date Physician, Pcp Unknown PCP - General 11/14/24
== END 2025-10-23 11:07 | disposition home or self-care (01) ==
LOC: HO.HMCH 09:18
PROVIDERS: PCP Physician Assistant; Visit Provider Student in an Organized Health Care Education/Training Program
DX: Z01.818 Encounter for other preprocedural examination (principal)

== ENCOUNTER 2025-10-23 09:17 | Outpatient (REF) | payer MEDICARE, SELFPAY ==
--- NOTE | ~2025-10-23 | XR_ITS ---
EXAMINATION: XR CHEST 2 VIEWS HISTORY: Z01.818 - Encounter for other preprocedural examination COMPARISON: There are no prior studies available for comparison. FINDINGS: PA and lateral views of the chest are submitted. There is minimal linear scarring in the right middle lobe. The lungs are otherwise clear. There is no pleural effusion, pneumothorax, or pulmonary vascular congestion. The heart is normal in size. The bones are intact. XR/XR chest 2V IMPRESSION: Minimal right middle lobe scarring. Electronically signed by: Mich Caledra MD 10/23/2025 11:23 AM BERNARDINO KHANNA
[2025-10-23 10:29] LABS: MANUAL DIFF FLAG NO
[2025-10-23 10:47] LABS: Hematocrit 45.6 % (37.0-47.0); Hemoglobin 14.9 g/dl (12.0-16.0); Imm Gran Abs Auto 0.02 X10*3/uL (0.00-0.03); Imm Gran Pct Auto 0.3 % (0.0-0.4); Lymphocytes Absolute Auto 2.3 X10*3/uL (1.2-4.9); Mean Corpuscular HGB Conc 32.7 g/dl (31.0-35.0); Mean Corpuscular Hemoglobin 29.0 pg (27.0-33.0); Mean Corpuscular Volume 88.7 fL (80.0-98.0); NRBC Abs Auto 0.000 X10*3/uL (0.0-0.012); NRBC Pct Auto 0.0 /100WBC (0.0-0.2); Platelet Count 327 X10*3/uL (160-400); Red Blood Count 5.14 X10*6/uL (4.20-5.50); White Blood Count 6.6 X10*3/uL (4.8-10.8)
[2025-10-23 10:48] LABS: INTERNATIONAL NORM RATIO 1.0 (0.9-1.1); Prothrombin Time 12.6 SEC (11.2-13.5)
[2025-10-23 10:50] LABS: Partial Thromboplastin Time 29.3 SEC (26.7-34.1)
--- NOTE | 2025-10-23 10:59 | ECG_ITS ---
Test Reason : PREPROC EXAM Blood Pressure : */* mmHG Vent. Rate : 72 BPM Atrial Rate : 72 BPM P-R Int : 156 ms QRS Dur : 92 ms QT Int : 370 ms P-R-T Axes : 4 -21 18 degrees QTcB Int : 405 ms Normal sinus rhythm Normal ECG No previous ECGs available Referred By: Yeni Houser Electronically Signed By: ALIA RIGGS MD
[2025-10-23 11:13] LABS: Appearance Urine Clear; Glucose Urine UA Negative (Negative); PH 5.5 (5.0-9.0); Specific Gravity - Urine 1.010 (1.005-1.025)
[2025-10-23 11:23] LABS: Alanine Aminotransferase 24 U/L (0-31); Albumin Level 4.7 g/dL (3.5-5.0); Alkaline Phosphatase 74 U/L (39-117); Anion Gap 12 (12-20); Aspartate Amino Transferase 24 U/L (5-31); Blood Urea Nitrogen 15 mg/dL (9-16); Calcium 9.4 mg/dL (8.4-10.2); Carbon Dioxide 25 mmol/L (22-29); Chloride 108 mmol/L (96-108); Estimated Glomerular Filt Rate > 60; Potassium 4.1 mmol/L (3.3-5.1); Sodium 141 mmol/L (135-145); Total Protein 7.6 g/dL (6.5-8.0)
[2025-10-23 11:32] LABS: HIV Num 1 0.05 S/CO (0.00-0.99)
== END 2025-10-23 09:18 | disposition home or self-care (01) ==
LOC: HO.LAB 09:17
PROVIDERS: PCP Physician Assistant; Visit Provider Student in an Organized Health Care Education/Training Program
DX: Z00.00 Encounter for general adult medical examination without abnormal findings (principal); E11.9 Type 2 diabetes mellitus without complications; I10 Essential (primary) hypertension; E78.5 Hyperlipidemia, unspecified; Z79.899 Other long term (current) drug therapy
CPT/HCPCS: 36415; 71046; 80053; 81003; 83036; 84436; 84443; 84480; 84702; 85025; 85610; 85730; 87389; 93005; 99212

== ENCOUNTER → 2025-10-23 10:29 | Outpatient (BNV) | payer MEDICARE, SELFPAY | PROVIDERS: PCP Physician Assistant; Visit Provider Radiology Diagnostic Radiology | DX: Z01.818 Encounter for other preprocedural examination (principal) | CPT/HCPCS: 71046 ==

== ENCOUNTER → 2025-10-23 10:59 | Outpatient (BNV) | payer MEDICARE, SELFPAY | PROVIDERS: PCP Physician Assistant; Visit Provider Internal Medicine Cardiovascular Disease | DX: Z01.818 Encounter for other preprocedural examination (principal) | CPT/HCPCS: 93010 ==

== ENCOUNTER 2025-10-30 12:57 | Outpatient (AMB) | payer MEDICARE, SELFPAY ==
[2025-10-30 12:58] VITALS: BP 120/83; PULSE 83; BMI 33.3
--- NOTE | 2025-10-30 12:58 | A.OFFVIS_ITS ---
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: No Accompanied by: Self / Same As Patient Allergies cephalexin Allergy (Mild, Verified 10/30/25 13:01) Unknown SOME ANTIBIOTICS Allergy (Unknown, Uncoded 09/07/25 08:18) ITCH,THROAT SWELLING imitrex Allergy (Unknown, Uncoded 09/07/25 08:18) Unknown PCN Allergy (Unknown, Uncoded 09/07/25 08:18) rash, oral swelling Medication List - Last Reconciled 10/30/25 by Sal Perez NP atorvastatin (Lipitor) 20 mg PO DAILY 90 days clonazepam 1 tab PO DAILY CPAP (CPAP Machine/Device) need for CPAP setting auto PAP 6 to 20 cm of water levothyroxine (Synthroid) 88 mcg PO DAILY 30 days multivitamin 1 tab PO DAILY tirzepatide (Mounjaro) 7.5 mg subcut QWEEK HPI Comments Details: This is a 65-year-old female patient referred by PCP for preop cardiac risk stratification for an upcoming [place] butt lift surgery in [place]. Patient with no known history of coronary artery disease, ischemic disease or cardiomyopathy. Patient with a history of hyperlipidemia that is well- controlled with weight loss on Mounjaro and statin therapy. Patient states that she walks an hour every morning and denies any symptoms of exertional chest pain, shortness of breath, palpitations, dizziness, orthopnea, PND, leg edema, presyncope or syncope. Patient is reporting compliance with all medications. [facility] Medical History Blood in stool Chronic lower back pain Abdominal pain Menopausal and postmenopausal disorder Arthritis Depression GERD (gastroesophageal reflux disease) Breast mass, right Rotator cuff tear, right Hypothyroidism HLD (hyperlipidemia) Smoker HTN (hypertension) Surgical History History of facelift History of thyroidectomy History of plastic surgery Family History Father Heart problem Mother Stroke Diabetes Brother Acute CVA (cerebrovascular accident) Social History Housing: Apartment Are you a primary account executive healthcare to a significant other at home: No Do you presently have visiting nurse or other home services: No Alcohol intake: never Patient Tobacco Use Status: Former Tobacco user Tobacco use type: Cigarette Cigarettes Per Day: 15 e-Cigarette/Vaping Use: Never Used Second Hand Smoke Exposure: Yes service: No Current occupational status: employed 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, 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 needs: No Hearing needs: No Vision needs: Yes (Reading glasses) Review of Systems Const Denies daytime sleepiness, Denies difficulty sleeping, Denies snoring, Denies stops breathing during sleep and Denies weakness Card Denies chest pain, Denies rapid heart rate, Denies irregular heart rhythm, Denies claudication, Denies leg edema, Denies lightheadedness, Denies palpitations, Denies dyspnea, Denies dyspnea on exertion, Denies orthopnea, Denies paroxysmal nocturnal dyspnea and Denies slow heart rate Resp Denies cough, Denies dyspnea, Denies dyspnea on exertion and Denies snoring GI Reports no additional complaints, Denies hematochezia, Denies change in stool character and Denies dyspepsia Musc Denies abnormal gait, Denies muscle weakness and Denies numbness Neuro Denies abnormal gait, Denies numbness and Denies weakness Endo Denies palpitations Physical Exam Vital Signs: Last Vital Signs Pulse 83 10/30/25 12:58 BP 120/83 10/30/25 12:58 BMI result Body Mass Index 33.3 Const General: cooperative, healthy appearing, comfortable and no acute distress Orientation/consciousness: patient oriented x3 HEENT Head: Yes normal to inspection Neck Neck: Yes normal visual inspection, Yes trachea midline and Yes supple Chest Chest palpation & inspection: normal inspection of the chest Resp Effort & Inspection: normal respiratory effort Auscultation: clear to auscultation bilaterally, no crackles, no rales, no rhonchi and no wheezes Cardio Jugular venous distension: no JVD Palpation: normal PMI Rate: regular rate Rhythm: regular rhythm Heart sounds: S1 normal heart sound present, S2 normal heart sound present, no click, no gallops, no murmurs and no rubs Peripheral pulses: Peripheral pulses 2+ throughout GI Inspection: Yes normal to inspection Palpation (GI): Soft to palpation Auscultation: normal bowel sounds Skin General skin exam: no rashes or lesions noted Neuro General: patient oriented x3 Extrem General: Yes normal to inspection, No no pedal edema and No calf tenderness Psych Appearance: grossly normal Mental Status: mental status grossly normal Speech and movement: Normal speech and movement present Office Procedures EKG Details: EKG today shows normal sinus rhythm, rate 83 beats per minute, low-voltage QRS, left axis deviation, no significant STT wave abnormality, normal SC, [place]. [id number], Complete Assessment & Plan Assessment & Plan (1) Preop cardiovascular exam: Code(s): Z01.810 - Encounter for preprocedural cardiovascular examination (2) HLD (hyperlipidemia): Code(s): E78.5 - Hyperlipidemia, unspecified Category: Medical Qualifiers: Hyperlipidemia type: mixed hyperlipidemia Qualified Code(s): E78.2 - Mixed hyperlipidemia Plan EKG today is normal sinus rhythm with no significant ST-T wave abnormality. Most recent LDL at 90, within goal. Continue statin therapy, followed by PCP. Blood pressure is within normal limits. Patient is also on Mounjaro for weight loss t herapy it loss with good effect and is walking an hour a day. A1c at 5.5 %. Advised to continue with heart healthy diet, regular exercise, losing weight, med compliance, and management of vascular risk factors. Patient is active and is able to climb up 2 flights of stairs without any shortness of breath, chest pain, or any other cardiovascular symptoms, indicating a functional capacity of greater than 4.0 Mets. Given this, patient can proceed with the upcoming procedure with the consideration that patient is at a low cardiac risk. Follow up on an as-needed basis. This note was generated using voice recognition software. While every effort has been made to ensure accuracy and proper environmental services supervisor, there may be occasional errors that could affect the content or meaning of the described symptoms. Orders: Orders AMB EKG-In Office Today Z.810 - Encounter for preprocedural cardiovascular examination Coding Level of Care Code New Pt Level 4 (99770) Add On Problem Visit Only Diagnoses Preop cardiovascular exam Z.0 Mixed hyperlipidemia E78.2 Hyperlipidemia type: mixed hyperlipidemia CPT Codes EKG - CPT: 01422-Mtzkqhnomeireyvan, Complete ([id number]) Time Spent (min) 31 Comment Time spent in reviewing the chart, test results, assessment, counseling and documentation.
--- OUTSIDE RECORDS SUMMARY | 2025-10-30 14:50 | XMS_ITS | Clinical Summary ---
Author Organization [address] [facility] [address] Address [address] [place] [address] Phone Care Team Providers Care Set Up Mechanic Coil Winding Machines Name Role Phone Physician, Pcp Unknown Primary [...] 8:30 AM EDT Office Visit Orthopedic Surgery [place] [phone] [phone] Dario Hadley DPM Hallux rigidus of left foot (Primary Dx); Ingrowing nail; Dermatophytosis of nail 08/07/2025 9:15 AM EDT Office Visit [place] [address] [phone] Dario Hadley DPM Tendinitis of left ankle (Primary Dx); Ingrowing nail; Hallux rigidus of left foot from Last 3 Months Surgical History Surgery Date Site/Laterality Comments THYROIDECTOMY COSMETIC SURGERY Medical History Medical History Date Comments Diabetes mellitus ([facility] V24, [facility] V28) Type 2 diabetes mellitus ([facility] V24, [facility] V 28) Hypothyroid Hyperlipidemia Anxiety Arthritis [...] 11/09/2025 8:15 AM EST Office Visit Orthopedic [place] [address] [phone] Dario Hadley DPM [address] [phone] Health Maintenance Due Date Last Done Comments [...] topic Insurance [employer] MED[employer]ARE ADVANTAGE Care Teams Set Up Mechanic Coil Winding Machines Relationship Specialty Start Date End Date Physician, Pcp Unknown PCP - General 11/14/24
== END 2025-10-30 13:24 | disposition home or self-care (01) ==
LOC: HO.HCS 12:58
PROVIDERS: PCP Physician Assistant
DX: Z01.810 Encounter for preprocedural cardiovascular examination (principal); E78.2 Mixed hyperlipidemia
CPT/HCPCS: 93010; 99204; G2211

== ENCOUNTER → 2025-10-30 12:57 | Outpatient (BNVA) | payer MEDICARE, SELFPAY | PROVIDERS: PCP Physician Assistant | DX: Z01.810 Encounter for preprocedural cardiovascular examination (principal); E78.2 Mixed hyperlipidemia; Z79.899 Other long term (current) drug therapy; Z79.85 Long-term (current) use of injectable non-insulin antidiabetic drugs | CPT/HCPCS: 93005; 99202 ==